=== PATIENT | male | born 1940 | race Caucasian/White ===

== ENCOUNTER → 2023-12-29 09:55 | Outpatient (REF) | payer OTHER, SELFPAY | LOC: RCS 09:55 | PROVIDERS: ATTENDING PHYSICIAN Internal Medicine Cardiovascular Disease; FAMILY PHYSICIAN Internal Medicine | DX: I25.5 Ischemic cardiomyopathy (principal) | CPT/HCPCS: 93306 ==

== ENCOUNTER 2024-01-28 09:21 | Day surgery (SDC) | payer OTHER, SELFPAY | END 2024-01-28 11:17 | disposition home or self-care (01) | LOC: CATH 09:21 | PROVIDERS: ATTENDING PHYSICIAN Internal Medicine; FAMILY PHYSICIAN Internal Medicine; OTHER PHYSICIAN Internal Medicine Cardiovascular Disease | DX: I48.0 Paroxysmal atrial fibrillation (principal); I25.5 Ischemic cardiomyopathy; I11.0 Hypertensive heart disease with heart failure; I50.22 Chronic systolic (congestive) heart failure; I34.0 Nonrheumatic mitral (valve) insufficiency; E78.5 Hyperlipidemia, unspecified; I25.10 Atherosclerotic heart disease of native coronary artery without angina pectoris; Z95.5 Presence of coronary angioplasty implant and graft; Z95.810 Presence of automatic (implantable) cardiac defibrillator; Z87.891 Personal history of nicotine dependence; Z85.46 Personal history of malignant neoplasm of prostate; Z79.82 Long term (current) use of aspirin; Z79.01 Long term (current) use of anticoagulants | CPT/HCPCS: 92960; 93005 ==

== ENCOUNTER 2024-03-21 08:01 | Day surgery (SDC) | payer OTHER, SELFPAY ==
[2024-03-16 10:27] VITALS: BMI 30.1
[2024-03-16 10:51] LABS: % Basophils 0.8 % (0-2); % Eosinophils 2.1 % (0-6); % Immature Granulocytes 0.4 % (0-0.5); % Lymphocytes 19.3 % (20.5-51.1); % Monocytes 9.4 % (1.7-9.3); Absolute Eosinophils 0.1 10^3/uL (0-0.7); Absolute Lymphocytes 0.9 10^3/uL (1.2-3.4); Absolute Monocytes 0.5 10^3/uL (0.1-0.6); Absolute Neutrophils 3.3 10^3/uL (1.4-6.5); Hematocrit 39.3 % (39.0-52.0); Hemoglobin 13.6 g/dL (13.0-18.0); Mean Corp Hgb Conc. 34.6 g/dL (33.0-37.0); Mean Corpuscular Hgb 32.1 pg (27.0-31.0); Mean Corpuscular Volume 92.7 fL (80.0-94.0); Mean Platelet Volume 10.2 fL (7.4-10.4); Nucleated Red Blood Cells % 0 % (-); Platelet Count 173 10^3/uL (130-400); Red Blood Cell Count 4.24 10^6/uL (4.70-6.10); Red Cell Dist. Width 12.6 % (11.5-14.5); White Blood Cell Count 4.8 10^3/uL (4.8-10.8)
[2024-03-16 11:08] LABS: ALT (SGPT) 16 U/L (0-50); AST (SGOT) 22 U/L (17-59); Albumin 4.7 g/dl (3.5-5.0); Alkaline Phosphatase 73 U/L (38-126); Blood Urea Nitrogen 30 mg/dl (9-20); Calcium 9.6 mg/dl (8.4-10.2); Carbon Dioxide 28 mmol/L (22-30); Chloride 102 mmol/L (98-107); Estimated Creatinine Clearance 59 ml/min; Glucose 93 mg/dl (70-99); Potassium 4.7 mmol/L (3.5-5.1); Sodium 140 mmol/L (135-145); Total Protein 7.3 g/dl (6.3-8.2); eGFR > 60.00
[2024-03-16 11:38] LABS: Total Bilirubin 1.4 mg/dl (0.2-1.3)
[2024-03-21] VITALS (28 sets, daily range): BP systolic 97–127; BP diastolic 60–93; BMI 29.3
--- NOTE | 2024-03-21 09:51 | PTCARENOTE ---
Pt is here for a PVI but took his Jardiance yesterday at 1100. Dr Adan made aware. Pt ok for procedure per Dr Adan. Will continue to monitor.
--- NOTE | 2024-03-21 13:51 | PTCARENOTE ---
Addendum entered by Mago Zhang RN 03/21/24 16:33:
Jeovanny from [employer] states new ICD settings are VVIR 70-100.
Original Note:
Dr Grant, Dr Adan (anesthesiologist), and Jeovanny Toussaint ([employer] rep) at pt bedside assessing pt and pt's ICD.
--- NOTE | 2024-03-21 13:53 | PTCARENOTE ---
Received pt from PVI procedure at 1336. At 1339, pt noted to have heart rate increased to 126 V paced. Pt denies chest pain and or SOB. VSS. EKG done. Tigertext sent to Dr Grant with EKG and [employer] rep notified. Will continue to monitor.
--- NOTE | 2024-03-21 14:01 | ITS.CL.ABL ---
[employer] - Ablation
Ablation
Procedure Report:
AFIB ablation:
Mr. Patel is a very pleasant 84 yr old gentleman with h/o persistent AF s/p AF ablation in 06/28/2019 that included pulmonary veins isolation, and CTI flutter ablation, has gone into recurrent atrial tachycardia / flutter and presented today to
the EP lab for atrial fibrillation / flutter ablation.
Date of Procedure:
03/21/2024
Indications:
Recurrent atrial fibrillation / atrial flutter / Atrial tachycardia
Pre-Operative Diagnosis:
Atrial fibrillation/Atrial flutter / Atrial tachycardia
Post-Operative Diagnosis:
Atrial fibrillation/Atrial flutter / Atrial tachycardia
Procedure Performed:
Redo atrial fibrillation ablation
Roof line formation for atypical roof dependent atrial flutter
Posterior wall isolation ablation
Left atrial anterior wall tachycardia ablation
Mitral isthmus ablation for amanda-mitral flutter ablation
Performing Physician:
Pérez Grant MD
Assistants:
EP staff
Anesthesia:
See anesthesia records
Detailed Description of the Procedure:
Written informed consent was obtained from the patient after a full explanation of the risks and benefits of the procedure including the risks of sedation and anesthesia.
The patient was brought to the electrophysiology laboratory in stable condition in fasting state. Continuous electrocardiographic and hemodynamic monitoring was initiated.
The initial rhythm was atrial flutter.
Device Interrogation:
Patient has [employer] ICD in place. The device was interrogated at the start of the case. The device and the lead was working normally. The tachy-therapies monitoring and interventions were suspended before the start of the case. The object oriented programmer
remained connected in the room throughout the procedure.
At the end of the case the device was reprogrammed to normal functioning at the previous settings. All therapies are resumed and ICD was armed before patient left the procedure room.
Time out:
The procedure site was meticulously prepared with surgical scrub and allowed to dry with no pooling. Sterile draping was applied to cover the procedure site. The image intensifier was draped with sterile bag and positioned over the patient.
Prior to the start of the procedure a surgical pause was performed with in agreement from anesthesia, EP staff with double identifier and explanation of the procedure, plan and site of the procedure stated with allergies and medications and
pertinent labs reviewed.
After infusion of local anesthetic, vascular access was obtained under ultrasound guidance and sheaths were placed over guide wire as detailed below.
Sheath and Catheter Placement:
Following sheaths were placed
Sheaths:
��������� Agilis sheath in right femoral vein upgraded from 8Fr in right femoral vein
��������� 9Fr in right femoral vein
��������� 7Fr in right femoral vein
Catheters:
��������� BiosAccess Mobile [employer] Thermocool STSF bidirectional - at locations of HRA, RV, LA, CS and LV.
��������� Pentaray catheter � at locations of RA, RV, LA and CS
��������� ICE catheter �AcuNav - at locations of RA, SVC, and RV.
��������� Decapolar catheter in RA and CS
A 7000 units of heparin was given.
Intracardiac ECHO:
An 8-Urdu AcuNav intracardiac ECHO (ICE) probe was advanced through the 9-Urdu sheath in the right femoral vein into the right atrium under fluoroscopic and ICE ultrasound image guidance and a baseline ECHO study was performed. The left atrial
size was dilated. There was trace tricuspid regurgitation. There was mild mitral regurgitation. The aortic valve was grossly normal. There was normal left ventricular size and function. There is trace pericardial effusion. All the four veins were
identified and has good flow identified.
During the procedure, ICE was used for monitoring of complications, guidance of trans-septal puncture, monitor the catheter position and tracking ablation lesions. No change in the pericardial space noted throughout the procedure.
Atrial Flutter:
The AFL was 340 msec and was entrained. It was out from the distal CS and was close to the proximal CS. The CS was concentric in activation. With this the RA was mapped.
The RA showed block at the CS and the high septal area was in the CL but the rest of the RA was out of the tachycardia cycle.
Decision was made to proceed with LA mapping.
Trans-septal Puncture:
Heparin was initiated and infused to maintain appropriate ACT. A J-tipped guidewire was advanced through the 8-Urdu sheath in the right femoral vein into the superior vena cava under fluoroscopic and ICE guidance. The 8-Urdu sheath was exchanged
for an Agilis sheath which was advanced into the superior vena cava. A BRK transseptal needle was advanced until the tip was slightly behind the tip of the dilator inside the Agilis sheath. The apparatus was withdrawn until it was in contact with
the fossa ovalis. The position was adjusted based on fluoroscopy and ultrasound images from ICE. Under fluoroscopic, hemodynamic and ICE ultrasound guidance, left atrium was cannulated by advancing the needle. Once atrial septum was cannulated, the
needle was pulled back and saline was injected into the left atrium. Both the sheath and the dilator was advanced into the left atrium. The dilator with the needle was withdrawn. Blood was aspirated from the Agilis sheath and arterial blood
confirmed. The sheath was flushed. Saline injection noted into the left atrium on ICE. The mapping catheter was advanced in the Agilis sheath into the left pulmonary vein. Left atrial pressure was measured and elevated V wave noted likely showing
high left atrial stiffness index.
3D Electroanatomic Mapping:
Using the Pentaray catheter advanced through Agilis sheath into the left atrium, an electroanatomic map (EAM) of the left atrium was created using [employer] Carto mapping system. The map was used for localization of catheter position and
tacking of ablation lesions.
The EAM of the left atrium showed 4 pulmonary veins with 3 veins electrically isolated from the body the LA. There was a small reconnection noted on the posterior wall connected to RSPV.
It showed extensive scar on the posterior and anterior wall of the LA. The LA was dilated in size.
Following the EAM, preparation were made for ablation.
Ablation:
Ablation #1: Atrial Fibrillation ablation:
The LA was mapped and the reconnection mapped to a posterior wall location at the carinal area.
Radiofrequency ablation using force sensing irrigated 3.5 mm catheter ([employer] STSF D/F) at the identified location was able to isolate the RSPV and the carinal area.
Ablation # 2: Atypical atrial flutter / Roof line Formation:
The EP study and the limited EAM of the flutter was consistent with roof dependent atrial flutter.
A set of radiofrequency ablations were placed on the roof line connecting the left superior pulmonary vein ablation lesions to the right superior pulmonary vein lesions rings.
All the ablation lesions were guided by the [employer] SURPOINT module with the posterior lesions were limited to 45 malone for SURPOINT lesion index goal of 400 and anterior wall lesions were limited to SURPOINT index goal of 450.
The esophagus was noted to be on the left side of the LA away from the PV antra based on the locations of the esophageal temperature probe. Ablation was stopped for any temperature increase of 0.1 degree C. Max esophageal temperature was 36.5C.
The tachycardia changed from 340 msec to 380 msec CL at the creation of the roof line.
Ablation # 3: Mitral flutter ablation:
The flutter was mapped again and was mitral flutter dependent now. The tachycardia terminated to sinus rhythm with mapping on the anterior wall.
The series of radiofrequency ablations were placed using an open irrigation, force-sensing 3.5mm radiofrequency ablation catheter (ThermocoTerr[employer]iance STSF) by creating ablation lesions from the left inferior PV antrum to the mitral annulus.
Ablation # 4: Posterior wall isolation with the Box lesions set Formation:
There was a significant fractionation seen in the posterior wall and LA AF foci along with CFAE made it clear as the posterior wall is critical in maintaining the atrial fibrillation and the decision was made to isolate the posterior wall by
creating a �Box� lesions.
A set of radiofrequency ablations were placed on the floor line connecting the left inferior pulmonary vein ablation lesions to the right inferior pulmonary vein lesions rings.
The penta-ray in the posterior wall showed entrance block with dissociated potentials and the pacing from the posterior wall showed local capture with no exit from the box lesions confirming the exit block.
Ablation # 5: Left atrial tachycardia ablation.
While doing the EP study, patient went into atrial tachycardia � 470 msec. It was mapped. The rhythm was thought to be coming from the anterior wall with focal origin at the annulus of the mitral valve. It was easily inducible and was mapped.
The best area of focal source was identified and the ablation at the anterior wall terminated the tachycardia into sinus rhythm. The area was ablated and was connected to the earlier ablation lesions on the anterior wall connecting to the mitral
annulus.
EP study and Confirmation of the PVI and bidirectional block:
Following achievement of entrance block at the pulmonary veins, pacing from the pentaray catheter in each of the four veins at 10 milliamps for 2 milliseconds showed entrance and exit block. All PVI were rechecked at the end of the case and remained
isolated with dissociated and local capture with pacing. Entrance and exit block were demonstrated in all veins.
The LA was mapped with Carto EAM in sinus rhythm confirming the line of block at the ablation lesions lines.
Posterior wall pacing with pentaray showed bidirectional block with no exit noted with local capture.
Sinus Node Function: The sinus node functions are within acceptable normal range.
The AV gadiel functions are deemed within normal range.
Arrhythmia Induction:
No sustained arrhythmia was induced at the end of the study.�
All PVI were rechecked at the end of the case and remained isolated with dissociated and local capture with pacing. Entrance and exit block were demonstrated.
Procedure End
ICE study was done again that showed no epicardial accumulation. No complications noted.
Following the completion of the EP study, catheters were removed. Protamine 40 mg was given at the end of the procedure and ACT was checked repeatedly. The sheaths were removed and hemostasis achieved with manual compression after acceptable ACT is
achieved.
Left atrial Pressure:
Pre-ablation: Mean LA pressure was 11mmHg
Post-ablation: Mean LA pressure was 19mmHg
Post-ablation: Mean LA pressure was 11mmHg
Estimated Blood loss:
<10 cc
Specimens Removed:
None.
Implants / Devices:
None
Urine output:
None
Packs / Drains/ Tubes:
None
Instrument / Sponge Count Correct:
Yes
Complications of the Procedure:
None
Condition of Patient at Time of Transfer:
Hemodynamically stable with no neurological or vascular compromise.
Summary:
Successful redo atrial fibrillation ablation with PVI, posterior wall isolation, atypical roof dependent atrial flutter ablation, Mitral flutter ablation, atrial tachycardia ablation.
Figures from the Procedure:
Figure 1: The electroanatomic mapping (EAM) of the left atrium with bipolar voltage (purple indicates normal electrical activity with red as no myocardial muscle electric activity indicating a line of block or scar.
[2024-03-21] MEDS: ANESTHETIC LOZENGE 1 LOZENGE PO (14:11)
[2024-03-21] MEDS: TYLENOL 650 MG PO (14:24)
[2024-03-21] MEDS: CORDARONE 103 MG IV (14:27)
--- NOTE | 2024-03-21 14:58 | W.PN.UPDATE ---
Update Note
Progress Note Update
Increased ectopy and ICD is pacing with retrograde conduction causing sustained SVT.
The ICD is reprogrammed to VVI 70 bpm. Now it is VVI paced with no tachycardia. The SVT subsided with programing change.
Will start Amiodarone for the next 6 months.
OK to discharge home.
--- NOTE | 2024-03-21 15:22 | PTCARENOTE ---
Dr Grant at pt bedside speaking to pt and pt's .
[2024-03-21 15:26] LABS: ACT-LR - POC 297 Seconds (116-155)
[2024-03-21 15:26] LABS: ACT-LR - POC 358 Seconds (116-155)
[2024-03-21 15:26] LABS: ACT-LR - POC 345 Seconds (116-155)
--- NOTE | 2024-03-21 16:10 | PTCARENOTE ---
EKG done 2 hours post amiodarone administration as ordered. EKG given to Jhoana TINAJERO. No further treatment ordered at this time.
--- NOTE | 2024-03-21 16:12 | W.PN.UPDATE ---
Update Note
Progress Note Update
Pt seen post Redo PVI/Flutter/Left AT ablation. Right groin with vascade closure that did not close properly, and manual compression was held with good hemostasis.
Post procedure, he had increased ectopy and ICD was pacing with retrograde conduction causing sustained SVT. The device was reprogrammed to VVI 70 with no tachycardia. He was started on amiodarone with 150mg IV bolus in recovery and will remain on
200mg BID at this time. Post EKG after amio now VPaced with underlying sinus rhythm.
Resume eliquis tonight at usual time. Will take 2 week course protonix post ablation. Followup at [facility] in 2 weeks as scheduled. Home later today if groin site/tele remain stable.
== END 2024-03-21 18:00 | disposition home or self-care (01) ==
LOC: CATH 08:01
PROVIDERS: ATTENDING PHYSICIAN Internal Medicine Cardiovascular Disease; FAMILY PHYSICIAN Internal Medicine; OTHER PHYSICIAN Internal Medicine Cardiovascular Disease
DX: I48.19 Other persistent atrial fibrillation (principal); I11.0 Hypertensive heart disease with heart failure; I25.10 Atherosclerotic heart disease of native coronary artery without angina pectoris; Z95.5 Presence of coronary angioplasty implant and graft; R06.02 Shortness of breath; J43.9 Emphysema, unspecified; Z85.46 Personal history of malignant neoplasm of prostate; Z87.891 Personal history of nicotine dependence; I25.5 Ischemic cardiomyopathy; E78.5 Hyperlipidemia, unspecified; Z68.30 Body mass index [BMI] 30.0-30.9, adult; E66.9 Obesity, unspecified; Z79.82 Long term (current) use of aspirin; Z79.899 Other long term (current) drug therapy; Z79.1 Long term (current) use of non-steroidal anti-inflammatories (NSAID); Z90.49 Acquired absence of other specified parts of digestive tract
CPT/HCPCS: 93655; C1769; C1894; C1730; C1732; C1766; C1892; C1759; 36415; 76937; 80053; 85025; 85347; 86850; 86900; 86901; 93005; 93656; C1760

== ENCOUNTER → 2024-05-12 07:36 | Outpatient (REF) | payer OTHER, SELFPAY | LOC: RSP 07:36 | PROVIDERS: ATTENDING PHYSICIAN Nurse Practitioner; FAMILY PHYSICIAN Internal Medicine | DX: I25.5 Ischemic cardiomyopathy (principal); I25.10 Atherosclerotic heart disease of native coronary artery without angina pectoris; Z95.810 Presence of automatic (implantable) cardiac defibrillator | CPT/HCPCS: 94727; 94729; 88738; 94060 ==

== ENCOUNTER 2024-05-23 02:46 | Inpatient (IN) | payer OTHER, SELFPAY ==
[2024-05-22 21:59] VITALS: BP 180/117
[2024-05-22 22:16] VITALS: BMI 28.8
[2024-05-22 22:29] LABS: % Basophils 0.7 % (0-2); % Eosinophils 0.9 % (0-6); % Immature Granulocytes 0.3 % (0-0.5); % Lymphocytes 17.9 % (20.5-51.1); % Monocytes 6.7 % (1.7-9.3); % Neutrophils 73.5 % (42.2-75.2); Absolute Basophils 0.1 10^3/uL (0-0.2); Absolute Eosinophils 0.1 10^3/uL (0-0.7); Absolute Lymphocytes 1.5 10^3/uL (1.2-3.4); Absolute Monocytes 0.6 10^3/uL (0.1-0.6); Absolute Neutrophils 6.3 10^3/uL (1.4-6.5); Hematocrit 39.3 % (39.0-52.0); Hemoglobin 13.5 g/dL (13.0-18.0); Mean Corp Hgb Conc. 34.4 g/dL (33.0-37.0); Mean Corpuscular Hgb 32.5 pg (27.0-31.0); Mean Corpuscular Volume 94.7 fL (80.0-94.0); Mean Platelet Volume 10.3 fL (7.4-10.4); Nucleated Red Blood Cells % 0 % (-); Platelet Count 193 10^3/uL (130-400); Red Blood Cell Count 4.15 10^6/uL (4.70-6.10); Red Cell Dist. Width 13.7 % (11.5-14.5); White Blood Cell Count 8.6 10^3/uL (4.8-10.8)
[2024-05-22 22:31] VITALS: BP 161/119
--- NOTE | 2024-05-22 22:43 | ED.GENMED ---
History of Present Illness
<MIGUEL Freed - Last Filed: 05/23/24 01:13>
General
Chief Complaint: Breathing Problem
Source: patient and spouse
Exam Limitations: none
Time Seen by Provider: 05/22/24 22:15
Nursing documentation reviewed up to this point in time: agreed with
History of Present Illness
History of Present Illness:
Pt is an 84 y/o M with pmhx of Afib, CHF, HTN, HLD, prostate cancer, and former smoker who presents with complaints of tachycardia and SOB for the past few months but has worsened over the past 3-4 days. The SOB is constant and is mildly better when
walking. The pt denied worsening of SOB with exertion, laying down, or sitting forward. There is associated wheezing, lightheadedness, fatigue, NELSON, palpitations, and nausea. The pt stated that when he has episodes of nausea, he feels that his
'stomach is churning'. The pt noted 2 episodes of darkened stools, the first was 3 days ago but noted that he had took pepto bismol at the time. The second episode of dark stool was this morning. The pt also noted significant abdominal bloating.
Denies chest pain, cough, vomiting, fever, abdominal pain, calf pain, and any recent travel.
Past History
<MIGUEL Freed - Last Filed: 05/23/24 01:13>
Past History
ED Past Medical History: Arrthythmia (Atrial fibrillation), CAD, CHF, HTN, Hypercholesterolemia and Other (Cardiomyopathy, circulation problems, back pain, neck pain, numbness right arm)
ED Past Surgical History: Appendectomy, Cardiac (Cardiac catheterization, 6 total stents, pacemaker) and Tonsilectomy
Social History
Tobacco: Former smoker
Alcohol: None
Drug: None
Living: with family
Employment: Retired
Review of Systems
<MIGUEL Freed - Last Filed: 05/23/24 01:13>
Review of Systems
Allergies reviewed?: Yes
Constitutional: Reports fatigue
EENT: Reports no symptoms
Respiratory: Reports cough and trouble breathing
Cardiac: Reports palpitations
ABD/GI: Reports nausea and black stools
: Reports no symptoms
Musculoskeletal: Reports no symptoms
Skin: Reports no symptoms
Neurological: Reports headache
Endocrine: Reports no symptoms
Hematologic/Lymphatic: Reports no symptoms
Psychiatric: Reports no symptoms
Phy Exam
<MIGUEL Freed - Last Filed: 05/23/24 01:13>
General Physical Exam
General Presentation: moderate distress
General age: appears stated age
General Skin: warm and dry
General Habitus: normal
General Mental: alert
General Hydration: appears well hydrated
ENT Exam
ENT Exam: neck supple
Eye Exam
Eye Exam: cornea clear and conjunctiva normal
Cardiovascular Exam
Cardiovascular Exam: no edema, no JVD, no carotid bruit and tachycardia
Pulmonary Exam
Pulmonary Exam: chest non tender and accessory muscle use
Respirations: moderate effort
Gastrointestinal Exam
Gastrointestinal Exam: non tender and distended
Neurological Exam
Neurological Exam: alert, oriented x3, no motor deficits, no sensory deficits and speech normal
Musculoskeletal Exam
Musculoskeletal Exam: full ROM and neuro vasc intact
Skin Exam
Skin Exam: normal color and warm/dry
Psychiatric Exam
Psychiatric Exam: normal mood/affect
Scores
<MIGUEL Freed - Last Filed: 05/23/24 01:13>
Heart Failure Risk
HF Risk Score: 4
Admission Status: HIGH RISK 26.1% Consider SNF treatment or admission to hospital
<Deo Rosas DO - Last Filed: 05/23/24 01:00>
Heart Failure Risk
Heart Failure Risk Score: Yes
History of Stroke or TIA: No
History of intubation for respiratory distress: No
Heart rate on ED arrival >/= 110: Yes
SaO2 <90% on arrival on room air: No
HR >/=110 during 3min walk test (or too ill to perform test): Yes
ECG has acute ischemic changes: No
Urea >/=12mmol/L (BUN 33.6mg/dL): Yes
Serum CO2>/=35mmol/L: No
Troponin I or T elevated to MT Level (0.4mg/dL): No
NT-proBNP >/=5,000ng/L (5,000pg/ml): Yes
HF Risk Score: 4
Admission Status: HIGH RISK 26.1% Consider SNF treatment or admission to hospital
Course
<MIGUEL Freed - Last Filed: 05/23/24 01:13>
Orders/Labs/Results
Orders:
Orders
05/22/24 21:58
ECG [Electrocardiogram (*1)] Urgent
Reason for Study: Tachycardia
EKG- Treatment ONCE
05/22/24 22:24
Complete Blood Count/With Diff Urgent
Comprehensive Metabolic Panel Urgent
NT-proBNP Urgent
Troponin I Urgent
05/22/24 22:54
Nitroglycerin Ointment [Nitro-Bid] 1 inch TOPICAL NOW STA
05/22/24 23:28
PT/INR [Prothrombin Time] Urgent
PTT Urgent
05/23/24 00:02
Furosemide [Lasix] 80 mg IV NOW STA
CR Chest - 2 Views Urgent
Comment:
Reason For Exam: dyspnea, tachycardia
05/23/24 00:59
Bipap [RESP] Urgent
Patient to use own unit?: No
Inspiratory Pressure (cm H2O): 12
Expiratory Pressure (cm H2O): 5
Abnormal Lab Results
05/22/24 05/22/24
22:24 23:28
RBC 4.15 L 10^6/uL
(4.70-6.10)
MCV 94.7 H fL
(80.0-94.0)
MCH 32.5 H pg
(27.0-31.0)
Lymphocytes % 17.9 L %
(20.5-51.1)
PT 19.1 H Sec
(11.4-14.6)
APTT 39.2 H Sec
(23.4-35.0)
Carbon Dioxide 20 L mmol/L
(22-30)
BUN 37 H mg/dl
(9-20)
Creatinine 1.6 H mg/dL
(0.7-1.3)
Glucose 130 H mg/dl
(70-99)
Total Bilirubin 1.4 H mg/dl
(0.2-1.3)
05/22/24 22:24
05/22/24 22:24
Vital Signs
Initial and Last Documented VS:
Initial Vital Signs
Temp Pulse Resp BP Pulse Ox
97.4 F 104 30 180/117 91
05/22/24 21:59 05/22/24 21:59 05/22/24 21:59 05/22/24 21:59 05/22/24 21:59
Last Documented Vital Signs
Temp Pulse Resp BP Pulse Ox
97.4 F 123 28 154/109 93
05/22/24 21:59 05/22/24 23:01 05/22/24 23:01 05/22/24 23:01 05/23/24 00:00
Rachellt;Deo Rosas, - Last Filed: 05/23/24 01:00>
Orders/Labs/Results
Orders:
Orders
05/22/24 21:58
ECG [Electrocardiogram (*1)] Urgent
Reason for Study: Tachycardia
EKG- Treatment ONCE
05/22/24 22:24
Complete Blood Count/With Diff Urgent
Comprehensive Metabolic Panel Urgent
NT-proBNP Urgent
Troponin I Urgent
05/22/24 22:54
Nitroglycerin Ointment [Nitro-Bid] 1 inch TOPICAL NOW STA
05/22/24 23:28
PT/INR [Prothrombin Time] Urgent
PTT Urgent
05/23/24 00:02
Furosemide [Lasix] 80 mg IV NOW STA
CR Chest - 2 Views Urgent
Comment:
Reason For Exam: dyspnea, tachycardia
05/23/24 00:59
Bipap [RESP] Urgent
Patient to use own unit?: No
Inspiratory Pressure (cm H2O): 12
Expiratory Pressure (cm H2O): 5
Abnormal Lab Results
05/22/24 05/22/24
23:28
RBC 4.15 L 10^6/uL
(4.70-6.10)
MCV 94.7 H fL
(80.0-94.0)
MCH 32.5 H pg
(27.0-31.0)
Lymphocytes % 17.9 L %
(20.5-51.1)
PT 19.1 H Sec
(11.4-14.6)
APTT 39.2 H Sec
(23.4-35.0)
Carbon Dioxide 20 L mmol/L
(22-30)
BUN 37 H mg/dl
(9-20)
Creatinine 1.6 H mg/dL
(0.7-1.3)
Glucose 130 H mg/dl
(70-99)
Total Bilirubin 1.4 H mg/dl
(0.2-1.3)
05/22/24 22:24
05/22/24 22:24
Vital Signs
Initial and Last Documented VS:
Initial Vital Signs
Temp Pulse Resp BP Pulse Ox
97.4 F 104 30 180/117 91
05/22/24 21:59 05/22/24 21:59 05/22/24 21:59 05/22/24 21:59 05/22/24 21:59
Last Documented Vital Signs
Temp Pulse Resp BP Pulse Ox
97.4 F 123 28 154/109 93
05/22/24 21:59 05/22/24 23:01 05/22/24 23:01 05/22/24 23:01 05/23/24 00:00
<MIGUEL Freed - Last Filed: 05/23/24 01:13>
MDM/Problems Addressed
Differential Diagnosis Includes:
PE
CHF
<Deo Rosas DO - Last Filed: 05/23/24 01:00>
MDM/Problems Addressed
Differential Diagnosis Includes:
CHF, copd
<MIGUEL Freed - Last Filed: 05/23/24 01:13>
*Critical Care Note
Total Time (30-74mins, 75-104mins- exclusive of procedures): Not Applicable
<Deo Rosas DO - Last Filed: 05/23/24 01:00>
Update Note
Update Note:
Chest x-ray shows pulmonary vascular congestion consistent with CHF.
ED Attending Note
<MIGUEL Freed - Last Filed: 05/23/24 01:13>
-
Portions of this chart may have been created with voice recognition software.� Occasional wrong word or��sound alike� substitutions may have occurred due to the inherent limitations of voice recognition software.
<Deo Rosas DO - Last Filed: 05/23/24 01:00>
ED Attending Note
Patient seen and examined by attending physician: Yes
I performed the substantive portion of visit, reviewed & personally made and approve the management plan that is documented in note by myself or MICHAEL.: Yes
ED Attending Note:
Pleasant 84-year-old male that presents with tachycardia and shortness of breath. Patient states that the shortness of breath has waxed and waned over the last few weeks. Patient was on Lasix but admits to stopping it on his own. The patient also
had darkened stools but took some Pepto-Bismol preceding. Patient denies any abdominal pain. Denies chest pain. Patient was seen in conjunction with the PA student. I have reviewed and agree with the history and treatment plan presented. On my
independent physical exam, patient is awake, alert, and oriented x3, minimal acute distress at time of exam. Rhonchi are present at both bases. Skin is warm and dry. Abdomen is soft nontender nondistended. Good bowel sounds x 4 quadrants. Moves
all 4 extremities. Rectal exam, performed in the presence of nursing, showed dark stool that was Hemoccult negative. The dark stool was likely from the Pepto-Bismol taken earlier in the week.
EKG shows AV dual paced rhythm rate of 86. When compared with previous EKG dated March 21, 2024, PVCs are not present.
Pacemaker was interrogated. I spoke with the tech who stated that patient is in an atrial rhythm. The pacemaker also detected increased fluid, possibly suggestive of CHF
Patient to be admitted to the hospital service for CHF exacerbation.
Discharge Plan
Departure
Patient Disposition: Admit
Date of Disposition: 05/23/24
Time of Disposition: 00:55
Admit to: Telemetry
Presentation/result/management discussed w/ accepting MD/DO: Hospitalist
Discharge Problem:
CHF (congestive heart failure)
Prescriptions:
No Action
cholecalciferol (vitamin D3) [Vitamin D3] 1,000 UNIT capsule
2,000 unit PO DAILY
ezetimibe 10 MG tablet
10 mg PO DAILY
Eliquis 5 MG tablet
5 mg PO BID
spironolactone 25 MG tablet
12.5 mg PO DAILY
coenzyme Q10 [Co Q-10] 200 MG capsule
200 mg PO DAILY
aspirin 81 MG tablet,delayed release (DR/EC)
81 mg PO DAILY
carvedilol 6.25 MG tablet
6.25 mg PO BID
Entresto 1 EACH tablet
1 tab PO BID
ibuprofen 200 MG tablet
200 mg PO DAILYPRN PRN (Reason: MILD PAIN)
atorvastatin 40 mg Tablet
40 mg PO DAILY
multivitamin Tablet
1 tab PO DAILY
furosemide 20 mg Tablet
20 mg PO DAILYPRN PRN (Reason: swelling)
Jardiance 10 mg Tablet
10 mg PO DAILY
amiodarone 200 mg tablet
200 mg PO BID Qty: 180 3RF
Referrals:
Jw Danielle MD [Family Provider] -
Interventions
Interventions:
*Risk Screen - Suicide Last Done: 05/22/24 21:59
*General Assessment Last Done: 05/22/24 21:59
*Neglect/Abuse Screening Last Done: 05/22/24 21:59
ED- Cardiac Assessment Last Done: 05/22/24 22:34
ED- Pulmonary Assessment Last Done: 05/22/24 22:34
Discharge Date and Time
Print Language: YI
[2024-05-22 23:00] LABS: ALT (SGPT) 23 U/L (0-50); AST (SGOT) 28 U/L (17-59); Albumin 4.6 g/dl (3.5-5.0); Alkaline Phosphatase 85 U/L (38-126); Blood Urea Nitrogen 37 mg/dl (9-20); Calcium 9.6 mg/dl (8.4-10.2); Carbon Dioxide 20 mmol/L (22-30); Chloride 103 mmol/L (98-107); Estimated Creatinine Clearance 39 ml/min; Glucose 130 mg/dl (70-99); Potassium 4.8 mmol/L (3.5-5.1); Sodium 140 mmol/L (135-145); Total Bilirubin 1.4 mg/dl (0.2-1.3); eGFR 42.75
[2024-05-22 23:01] VITALS: BP 154/109
[2024-05-22 23:04] LABS: NT-proBNP 8830 pg/ml; Troponin I 0.031 ng/ml
[2024-05-22] MEDS: NITRO-BID 1 INCH TOPICAL (23:28)
[2024-05-22 23:53] LABS: INR 1.63; PT 19.1 Sec (11.4-14.6)
[2024-05-22 23:54] LABS: APTT 39.2 Sec (23.4-35.0)
[2024-05-23] VITALS (36 sets, daily range): BP systolic 70–177; BP diastolic 61–134; PULSE 2–102; BMI 28.0
[2024-05-23] MEDS: LASIX 80 MG IV (00:35)
[2024-05-23] MEDS: ATIVAN 0.5 MG IV (01:50)
--- NOTE | 2024-05-23 02:38 | HPS.HSE ---
Family Physician
-
Family Physician: Jw Danielle
Chief Complaint
-
SOB
History of Present Illness
Patient is an 84y M with PMH significant for ASCVD, ischemic cardiomyopathy and CHFrEF who presents to ED complaining of SOB. History obtained from patient and his family at bedside. Patient underwent PVI ablation in February 2024 due to A-Fib. At
that time, he was newly started on amiodarone and Jardiance. He was taking Lasix 20mg BID at that time and has since tapered his dosing significantly. For the past few weeks, he has been taking Lasix 'as needed' only. He states that he has taken
no Lasix in the past 10 days at all.
Patient began to experience SOB and GARCIA about 3 days ago. This has steadily progressed since that time. He appreciates significant abdominal distention / 'bloating' and decreased appetite. He does not note significant LE edema.
He became acutely more short of breath this evening, prompting him to present to the ED for further evaluation.
He took a single dose of Lasix at home this evening around 9:30 PM (20mg).
In the ED, he was in significant distress and was placed on BiPAP. He states that he does feel improved from initial arrival - though he continues to feel SOB.
Medical History
Past Medical History
Past Medical History: Reports Other
Additional Past Medical History:
ASCVD
Ischemic Cardiomyopathy
Chronic HFrEF (35% - November 2023)
Persistent Atrial Fibrillation
Hypertension
Prostate Cancer
Past Surgical History: Reports Other
Additional Past Surgical History:
PTCA with Stents (x 12)
PPM / AICD Placement
PVI Ablation x 2
Appendectomy
Social History
Tobacco: Former Smoker (Quit smoking in 1979. Approx 20 pack years total use.)
Alcohol: Daily (1/2 bottle wine daily.)
Drug: None
Personal:
Living: With Family
Family History
Family History: Not pertinent
Allergies / Home Medications
Allergies reflects when Allergies were last updated in [facility].
Home Medications with original date entered in [facility]
Allergy/Medication List:
Allergies
Allergy/AdvReac Type Severity Reaction Status Date / Time
No Known Allergies Allergy Verified 03/21/24 08:10
Home Medications
cholecalciferol (vitamin D3) 25 mcg (1,000 unit) capsule (Vitamin D3) 2,000 unit PO DAILY Supplement 02/16/15
ezetimibe 10 mg tablet 10 mg PO DAILY High cholesterol 02/16/15
apixaban 5 mg tablet (Eliquis) 5 mg PO BID Blood clot prevention/tx 08/25/18
aspirin 81 mg tablet,delayed release 81 mg PO DAILY Blood clot prevention/tx 06/27/19
coenzyme Q10 200 mg capsule (Co Q-10) 200 mg PO DAILY Supplement 06/27/19
spironolactone 25 mg tablet 12.5 mg PO DAILY Blood pressure 06/27/19
carvedilol 6.25 mg tablet 6.25 mg PO BID Blood pressure 02/06/22
ibuprofen 200 mg tablet 200 mg PO DAILYPRN PRN MILD PAIN 02/06/22
sacubitril 49 mg-valsartan 51 mg tablet (Entresto) 1 tab PO BID Heart Failure 02/06/22
atorvastatin 40 mg tablet 40 mg PO DAILY 03/12/22
empagliflozin 10 mg tablet (Jardiance) 10 mg PO DAILY 03/11/24
furosemide 20 mg tablet 20 mg PO DAILYPRN PRN swelling 03/11/24
multivitamin 1 tab PO DAILY 03/11/24
amiodarone 200 mg tablet 200 mg PO BID #180 tabs 03/21/24
Review of Systems
-
History Source: Patient and Family
A 12 point ROS was completed and negative except as noted: Yes
Constitutional: Reports Fatigue; Denies Fever or Chills
EENT: Denies Sore Throat
Respiratory: Reports Trouble Breathing; Denies Cough or Hemoptysis
Cardiac: Denies Chest Pain, Diaphoresis, Palpitations or Syncope
Abdomen/GI: Reports Other (Abd distention.); Denies Abdominal Pain, Nausea, Vomiting or Diarrhea
: Denies Dysuria, Frequency or Flank Pain
Musculoskeletal: Denies Joint Pain or Edema
Neurological: Denies Dizzy or Headache
Physical Exam
Vital Signs
Vital Signs
Temp Pulse Resp BP Pulse Ox
97.4 F 123 28 154/109 93
05/22/24 21:59 05/22/24 23:01 05/22/24 23:01 05/22/24 23:01 05/23/24 00:00
Physical Exam
General: Other (84y M in mild distress due to dyspnea.)
HEENT: Moist mucous membranes and PERRLA
Respiratory: Other (Bilateral rales about 1/2 up. Scattered squeaks and wheezes.)
Cardiac: S1/S2 and Regular Rhythm; No Murmur
GI: Other (Abdomen is distended / non-tender. pos BS.)
Musculoskeletal: No Clubbing, No Cyanosis and Other (1+ edema at ankles bilaterally.)
Neuro: AO x 3
Laboratory Results
-
05/22/24 22:24
05/22/24 22:24
Laboratory Results
PT 19.1 Sec (11.4-14.6) H 05/22/24 23:28
INR 1.63 05/22/24 23:28
APTT 39.2 Sec (23.4-35.0) H 05/22/24 23:28
Total Bilirubin 1.4 mg/dl (0.2-1.3) H 05/22/24 22:24
AST 28 U/L (17-59) 05/22/24 22:24
ALT 23 U/L (0-50) 05/22/24 22:24
Alkaline Phosphatase 85 U/L (38-126) 05/22/24 22:24
Troponin I 0.031 ng/ml 05/22/24 22:24
Impression/Plan
-
A/P: Patient is an 84y M with PMH significant for ASCVD, CHF and hypertension who presents to ED complaining of SOB.
Acute on Chronic HFrEF
Acute Hypoxemic Respiratory Insufficiency secondary to the above
- Admit for further evaluation and treatment.
- Patient presents in respiratory distress with elevated BNP, rales and abdominal distention on exam and CXR showing pulmonary edema.
- IV Lasix administered in the ED and patient started on BiPAP.
- Continue IV Lasix BID.
- Add IV NTG.
- Follow I/Os, daily weights, etc.
- Cardiology evaluation for additional recommendations.
- Symptoms likely exacerbated by cessation of his prescribed Lasix doing (none in the past 10 days).
- Follow for clinical improvement.
- Wean from BiPAP as able.
- Update Echo - last in November of this year with LVEF = 35%.
LUCIO
- Likely secondary to CHF / prerenal etiology.
- SCr = 1.6 compared to known baseline of 1.1.
- Hold Entresto / ARB acutely.
- Follow for changes with diuresis.
ASCVD
- Stable. No chest pain, palpitations, etc associated with his dyspnea.
- Troponin initially is 'non-negative' - follow to peak.
- Continue usual CV med regimen including ASA, statin, etc.
Persistent Atrial Fibrillation
- Stable. Currently in AV paced rhythm.
- Monitor on telemetry.
- Continue Eliquis for stroke risk reduction.
- Continue amiodarone.
Prostate Cancer
- No prior treatment.
- Watchful waiting.
DVT Prophylaxis: On Eliquis
Code Status: Full
--- NOTE | 2024-05-23 07:03 | PTCARENOTE ---
Received patient from the ED on a BIPAP.
[2024-05-23 07:26] LABS: Troponin I 0.132 ng/ml
[2024-05-23 07:52] LABS: TSH Reflex To Free T4 1.91 uIU/ml (0.47-4.68)
[2024-05-23] MEDS: NITROGLYCERIN PREMIX 250 IV (08:05)
[2024-05-23] MEDS: LASIX 40 MG IV ×2 (08:19→16:16)
[2024-05-23] MEDS: THIAMINE INJECTION 200 MG IV ×2 (08:20→19:32)
[2024-05-23] MEDS: COREG 6.25 MG PO ×2 (08:20→19:31)
[2024-05-23] MEDS: ALDACTONE 12.5 MG PO (08:20)
[2024-05-23] MEDS: LIPITOR 40 MG PO (08:20)
[2024-05-23] MEDS: FOLVITE 1 MG PO (08:20)
[2024-05-23] MEDS: ASPIR LOW (ENTERIC COATED) 81 MG PO (08:21)
[2024-05-23] MEDS: PACERONE 200 MG PO (08:21)
[2024-05-23] MEDS: ELIQUIS 2.5 MG PO ×2 (08:24→19:32)
--- NOTE | 2024-05-23 08:33 | PTCARENOTE ---
Pt is AAOx3, hr 120 bp 140/90, now off bipap and on 6 liters nc no cp staes breathing is better. Meds given Nitro started at 5 mcg. Watching BP
--- NOTE | 2024-05-23 09:39 | CON.CAR ---
Addendum entered and electronically signed by Eliot Levy MD 05/23/24 11:01:
I saw and examined the patient.
The COCONUT COOKER's note was reviewed and I agree with the note.
Comment: 84-year-old male (known to Dr. Levy, his primary electronic funds transfer coordinator), with coronary artery disease status post PCI, persistent atrial fibrillation (PVI 05/2019, SSS s/p MDT PPM, ICM with ICD (previously 20%), and prostate cancer (watchful
waiting), who presented to the emergency department the chief complaint of shortness of breath. He is in acute HF exacerbation with AF RVR.
- IV diuresis
- likley AF will become better controlled with improved HF
Original Note:
Consultation
Consultation Request
Date/Time Consultation Requested: 05/23/2024 06:15
Date/Time Consultation Performed: 05/23/2024 09:00
Requesting Provider: Dr. Steele
Performing Provider: BERKLEY Hansen for Dr. Levy
Reason for Consultation: Acute heart failure
Medical History
-
Chief Complaint: Shortness of breath
History of Present Illness:
Vaibhav Patel is an 84-year-old male (known to Dr. Levy, his primary electronic funds transfer coordinator), with coronary artery disease status post PCI, persistent atrial fibrillation (PVI 05/2019, SSS s/p MDT PPM, ICM with ICD (previously 20%), and prostate
cancer (watchful waiting), who presented to the emergency department the chief complaint of shortness of breath. He followed up in the outpatient cardiology office 04/04/2024. He endorsed fatigue. His amiodarone was reduced to 200 mg daily and his
ICD was reprogrammed to DDDR. He called later that week and reported improvement. He was having lightheadedness. Initially he was on furosemide 40 mg daily earlier this summer. This was then decreased to 20 mg daily. He then endorsed continued
lightheadedness with low blood pressures at home. His furosemide was decreased to as needed. He has not taken any furosemide at home for nearly 10 days as he has not had any weight gain. He presented with worsening shortness of breath. It
started 3 to 4 days prior to arrival. He then proceeded to have shortness of breath at rest and presented to the emergency department. He was given furosemide 80 mg IV times once and started on BiPAP and a nitroglycerin drip.
Past Medical History
Past Medical History: Arrhythmias (Persistent atrial fibrillation), CAD, CHF (ICM, HFrEF), HTN and Hypercholesterolemia
Past Surgical History: Appendectomy
Social History
Tobacco: Former Smoker
Alcohol: Daily
Drug: None
Personal:
Living: With Family
Employment: Retired
Family History
Family History: Reviewed & Not Pertinent
Allergies / Home Medications
Allergy/AdvReac Type Severity Reaction Status Date / Time
No Known Allergies Allergy Verified 03/21/24 08:10
�Medication �Instructions �Recorded �Confirmed �Type
cholecalciferol (vitamin D3) 25 2,000 unit PO DAILY Supplement 02/16/15 05/22/24 History
mcg (1,000 unit) capsule (Vitamin
D3)
ezetimibe 10 mg tablet 10 mg PO DAILY High cholesterol 02/16/15 05/22/24 History
apixaban 5 mg tablet (Eliquis) 5 mg PO BID Blood clot 08/25/18 05/22/24 History
prevention/tx
aspirin 81 mg tablet,delayed 81 mg PO DAILY Blood clot 06/27/19 05/22/24 History
release prevention/tx
coenzyme Q10 200 mg capsule (Co 200 mg PO DAILY Supplement 06/27/19 05/22/24 History
Q-10)
spironolactone 25 mg tablet 12.5 mg PO DAILY Blood pressure 06/27/19 05/22/24 History
carvedilol 6.25 mg tablet 6.25 mg PO BID Blood pressure 02/06/22 05/22/24 History
ibuprofen 200 mg tablet 200 mg PO DAILYPRN PRN MILD PAIN 02/06/22 05/22/24 History
sacubitril 49 mg-valsartan 51 mg 1 tab PO BID Heart Failure 02/06/22 05/22/24 History
tablet (Entresto)
atorvastatin 40 mg tablet 40 mg PO DAILY 03/12/22 05/22/24 History
empagliflozin 10 mg tablet 10 mg PO DAILY 03/11/24 05/22/24 History
(Jardiance)
furosemide 20 mg tablet 20 mg PO DAILYPRN PRN swelling 03/11/24 05/22/24 History
multivitamin 1 tab PO DAILY 03/11/24 05/22/24 History
amiodarone 200 mg tablet 200 mg PO BID #180 tabs 03/21/24 05/22/24 Rx
Review of Systems
-
History Source: Patient
All other systems: Negative unless noted
Constitutional: Fatigue
EENT: No Symptoms
Respiratory: Trouble Breathing
Cardiac: No Symptoms
Abdomen/GI: No Symptoms
: No Symptoms
Musculoskeletal: No Symptoms
Skin: No Symptoms
Neurological: Weakness
Endocrine: No Symptoms
Hematologic/Lymphatic: No Symptoms
Physical Exam
Vital Signs
Temp Pulse Resp BP Pulse Ox
97.8 F 120 25 142/91 96
05/23/24 07:30 05/23/24 08:21 05/23/24 08:15 05/23/24 08:21 05/23/24 08:15
Lab Results
05/22/24 22:24
Troponin I 0.132 ng/ml H* 05/23/24 06:37
Cfr-U-Wtjgixxzwla Pept 8830 pg/ml 05/22/24 22:24
Physical Exam
General: Well Developed, Well Nourished, No Apparent Distress and Comfortable
HEENT: Normocephalic, Anicteric and Moist Mucous Membranes
Respiratory: Crackles and Non Labored Respirations
Cardiac: S1/S2 and Irregular Rhythm; Negative Peripheral Edema
Breast: Deferred by me
GI: Soft, Non Tender, Non Distended and Normal Bowel Sounds
Rectal: Deferred by Provider
Genito-urinary: No Costovertebral Tender
Musculoskeletal: No Clubbing, No Cyanosis and No Edema
Skin: Warm and Dry
Neuro: AO x 3
Hematologic/Lymphatic: No Lymphadenopathy
Psych: Calm
Impression / Plan
-
BACKGROUND:
Typing Pool Supervisor: Dr. Levy
Acute hypoxic respiratory failure, in the setting of acute HFrEF
-Initially requiring BiPAP, plan as below
-Wean O2 as tolerated
ICM
HFrEF, acute on chronic
-Diuresis with furosemide 40 mg IV twice daily
-He endorsed dizziness (OH?) and his furosemide was slowly tapered down, he has been off diuretic for 10 days
-Lowest documented LVEF 20% in 2019
-GDMT as tolerated
-Beta-efrain: Carvedilol 6.25 mg BID
-SGLT2: Jardiance 10 mg daily
-ACEI/ARB: Sacubitril/valsartan 49-51 mg BID
-MRA: Spironolactone 12.5 mg
-ICD: Medtronic
-Update TTE
-Trend daily weight, I's/O, and BMP with diuresis
-Heart failure education
Abnormal troponin
-Troponin 0.132, trend to peak
-No CP
Persistent atrial fibrillation
-Rates are elevated, on amiodarone and carvedilol
-Oral Anticoagulation: Apixaban has been decreased to 2.5 mg twice daily as his creatinine is now over 1.5, follow renal function
-[id number]: score at least 5 (Heart failure, HTN, age 75 or more, Vascular disease)
Lightheadedness
-Check orthostatics tomorrow
-If orthostatic is positive consider decreasing Entresto, he will need standing diuretic
CAD, stable without angina
LUCIO
-In the setting of acute HFrEF, trend with diuresis
Mild to moderate MR
Former smoker, continue cessation recommended
Daily EtOH consumption, on MSAS
Prostate cancer, watchful waiting
DATA:
TTE, 12/29/2023:
Left ventricle is mildly dilated.
Estimated LVEF 35%.
Global hypokinesis.
Very severe biatrial enlargement.
Mild to moderate mitral regurgitation.
Mildly dilated aortic root and ascending aorta.
Compared to prior study of 03/06/2022 the LVEF has fallen from 45-50% to 35%. The
LV is now dilated.
Data Reviewed
-
EKG: Report Reviewed by me (AV paced rhythm with prolonged AV conduction, PVCs, rate 86)
Radiology: Report Reviewed by me (CXR: Diffusely increased interstitial/bronchovascular markings bilaterally with some ill-defined opacities within the right lung base. No pleural effusions. Findings most likely represent interstitial pulmonary
edema with superimposed pneumonia not excluded within the right lung base. No effusions.)
Labs: Labs Reviewed by me
Old Records: Reviewed
[2024-05-23 12:21] LABS: Blood Urea Nitrogen 48 mg/dl (9-20); Calcium 9.1 mg/dl (8.4-10.2); Carbon Dioxide 26 mmol/L (22-30); Chloride 101 mmol/L (98-107); Estimated Creatinine Clearance 35 ml/min; Glucose 118 mg/dl (70-99); Potassium 5.4 mmol/L (3.5-5.1); Sodium 142 mmol/L (135-145); eGFR 37.12
[2024-05-23 14:18] LABS: Glycohemoglobin (HgbA1c) 5.7 % (4.0-5.6)
--- NOTE | 2024-05-23 14:43 | CM ---
Patient with Dx HF, LUCIO, ASCVD, Persistent A Fib. O2 6L. Nitro gtt d/c'ed. Receiving IV Lasix, IV Folic Acid.
Met with patient who who resides with his in a 1 story house with 2 PAOLA.
The patient has been independent in ADLs and ambulation.
He is active, drives, mows his lawn and works in his garden.
The patient says he has been unsteady on his feet since yesterday.
DME - RW, SPC, crutches
No prior VN or SNF.
PCP - Jw Danielle
Pharmacy - [facility]
CM Consult: Substance Abuse
Per Dr Steele's notes: Alcohol: Daily (1/2 bottle wine daily)
Offered BCARES and patient declined, saying he has no problems with his Etoh use.
Message to Dr Courtney and Fatou Alan requesting PT/OT Evals.
Offered VN for HF Education - patient agrees and chooses [facility].
Plan follow up after seen by PT/OT.
Plan watch for home O2 needs.
Probable home with [facility].
--- NOTE | 2024-05-23 18:46 | W.PN.HOSP.TC ---
Addendum entered and electronically signed by Mable Courtney MD 05/23/24 20:13:
I saw and evaluated the patient independently. I reviewed the resident�s note and agree with findings and plan as documented by Dr. Alan.
GENERAL: well developed, well nourished, male in no apparent distress
HEENT: NC/AT--6L O2 requirements
HEART: irreg irreg and tachycardic
LUNGS : crackles at bases bilaterally
ABDOM: soft, nontender, nondistended, + bowel sounds
EXT: no cyanosis, clubbing, or edema
NEUROLOGIC: grossly intact
Acute on Chronic HFrEF--ECHO with EF 30-35% but technically difficult study--cont diuresis but watch creat--might be early cardiorenal syndrome--creat might improve with diuresis--off IV NTG--cont spironolactone and IV lasix--apprec cards-- -
Symptoms likely exacerbated by cessation of his prescribed Lasix doing (none in the past 10 days).
Acute Hypoxemic Respiratory Insufficiency secondary to the above--cont diuresis--O2 requirements should improve--cont CPAP as needed HS--PFTs done as outpt show obstructive lung disease with improvement with bronchodilators--consider pulm consult
LUCIO - Likely secondary to CHF/prerenal etiology - Holding Entresto/ARB for now--consideration for renal consult
ASCVD - Stable. No chest pain, palpitations, etc associated with his dyspnea -- Continue usual CV med regimen including ASA, statin, etc.
Persistent Atrial Fibrillation- Stable. Currently in AV paced rhythm--cont eliquis and amio
Prostate Cancer- No prior treatment - Watchful waiting.
DVT Prophylaxis: On Eliquis
Code Status: Full
Original Note:
Today's Communication/Plan
-
Consult cardiology regarding cardio renal syndrome
Consult nephrology for consistently rising serum creatinine levels
consult pulmonology for ILD
Repeat CMP
MOnitor input output
Assessment / Plan
Assessment / Plan
IMPRESSION
84/male on oxygen via nasal canula, acute on chronic heart failure, november2023 EF 35 percent.
ASSESSMENT
ACUTE ON CHRONIC CHF WITH REDUCED EF
MODERATE OBSTRUCTIVE LUNG DISEASE
PERSISTENT ATRIAL FIBRILLATION
LUCIO
#1 ACUTE ON CHRONIC CHF WITH REDUCED EF(30)
EF dropped from november 2023 35 to 30 today
Follow I/Os, daily weights, etc.
Wean from BiPAP as able.
TTE done today showed EF 30, MODERATE MR
CONTINUE LASIX AND SPIRONOLACTONE
CONSULT CARDIOLOGY
#2 MODERATE OBSTRUCTIVE LUNG DISEASE
According to his PFTS done on 05/12 patient showed significant improvement in his FEV1 after bronchodilator therapy(30PERCENT)
moderate diffusion impairement
Chest xray done today shows Diffusely increased interstitial/bronchovascular markings bilaterally with some ill-defined opacities within the right lung base. No pleural effusions. Findings most likely represent interstitial pulmonary edema with
superimposed pneumonia not excluded within the right lung base. No effusions.
consult pulmonology
#3PERSISTENT ATRIAL FIBRILLATION
AV dual-paced rhythm with prolonged AV conduction PREMATURE VENTRICULAR AND
FUSION COMPLEXES
ABNORMAL ECG
WHEN COMPARED WITH ECG OF 21-MAR-2024
VENT. RATE HAS INCREASED BY 11 BPM
#4AKI
Patient creatinine level 1.8
baseline is 1.1
could be due to overdiuresis or underdiuresis
consult nephrology
DVT Prophylaxis: On Eliquis
Code Status: Full
Anticipated Discharge: 24 - 48 hours
Subjective/Interval History
-
Date of Service: May 23, 2024
Could not sleep last night due to shortness of breath, cpap helped him breathe better and was able to sleep for 3 hours
Objective Data
-
Labs:
Laboratory Results
05/23/24
11:59
Sodium 142
Potassium 5.4 H
Chloride 101
Carbon Dioxide 26
BUN 48 H
Creatinine 1.8 H
Glucose 118 H
Calcium 9.1
Vital Signs:
Vital Signs
Temp Pulse Resp BP Pulse Ox
98.2 F 120 25 113/99 100
05/23/24 15:55 05/23/24 17:00 05/23/24 12:19 05/23/24 17:00 05/23/24 16:30
I&O
05/22/24 05/23/24 05/24/24
06:59 06:59 06:59
Output Total 300 / 300 1100 / 1100
Balance -300 / -300 -1100 / -1100
Review of Systems
-
All other systems: Reviewed and negative
Physical Exam
-
General: Comfortable and Conversant
HEENT: Normocephalic and Atraumatic
Respiratory: Wheezes, Rales, Crackles and Decreased Breath Sounds
Cardiac: Regular Rhythm and S1/S2
GI: Soft, Nontender and Normal Bowel Sounds
Genito-urinary: No Costovertebral Tender
Musculoskeletal: No Clubbing, No Cyanosis and No Edema
Skin: Warm and Dry
Neuro: Awake and Oriented
Hematologic / Lymphatic: No Lymphadenopathy
Psych: Calm
[2024-05-23 19:43] LABS: Troponin I 0.096 ng/ml
--- NOTE | 2024-05-23 23:00 | PTCARENOTE ---
AAOx3 forgetful at times. A-paced, occasional V-A Paced int he 70-120. SBP in the 90's. Lung sounds are diminished and fine crackles at the bases. SaO2 95%. Pt O2 was wean to 4L. Pt refused BIPAP HS. pt has been using the urinal. Abd round. Call
dawson within reach and bed alarm in place.
[2024-05-24] VITALS (12 sets, daily range): BP systolic 92–132; BP diastolic 57–99; PULSE 76; O2SAT 100; BMI 27.4
[2024-05-24 04:36] LABS: Hematocrit 36.1 % (39.0-52.0); Hemoglobin 12.4 g/dL (13.0-18.0); Mean Corp Hgb Conc. 34.3 g/dL (33.0-37.0); Mean Corpuscular Hgb 33.2 pg (27.0-31.0); Mean Corpuscular Volume 96.5 fL (80.0-94.0); Mean Platelet Volume 10.8 fL (7.4-10.4); Platelet Count 158 10^3/uL (130-400); Red Blood Cell Count 3.74 10^6/uL (4.70-6.10); Red Cell Dist. Width 13.6 % (11.5-14.5)
[2024-05-24 04:48] LABS: INR 1.86; PT 21.3 Sec (11.4-14.6)
[2024-05-24 04:49] LABS: APTT 38.9 Sec (23.4-35.0)
[2024-05-24 04:50] LABS: Blood Urea Nitrogen 55 mg/dl (9-20); Calcium 8.7 mg/dl (8.4-10.2); Carbon Dioxide 24 mmol/L (22-30); Chloride 103 mmol/L (98-107); Estimated Creatinine Clearance 35 ml/min; Glucose 99 mg/dl (70-99); HDL Cholesterol 52 mg/dl; LDL Cholesterol, Calculated 52 mg/dl; Potassium 4.4 mmol/L (3.5-5.1); Sodium 139 mmol/L (135-145); Total Cholesterol 116 mg/dl (50-199); Triglyceride 64 mg/dl (10-149); Very Low Density Lipoprotein 12 mg/dl (0-30); eGFR 37.12
[2024-05-24] MEDS: PACERONE 200 MG PO (08:36)
[2024-05-24] MEDS: ELIQUIS 2.5 MG PO ×2 (08:36→20:41)
[2024-05-24] MEDS: LIPITOR 40 MG PO (08:36)
[2024-05-24] MEDS: ASPIR LOW (ENTERIC COATED) 81 MG PO (08:36)
[2024-05-24] MEDS: COREG 6.25 MG PO (08:36)
[2024-05-24] MEDS: FOLVITE 1 MG PO (08:36)
[2024-05-24] MEDS: THIAMINE INJECTION 200 MG IV ×2 (08:37→20:40)
[2024-05-24] MEDS: LASIX 40 MG IV (08:37)
--- NOTE | 2024-05-24 08:51 | W.PN.CD ---
Today's Communication / Plan
-
IV lasix this AM transition to PO tomorrow
Switch coreg to metop for AF
Impression / Plan
-
BACKGROUND:
Av Specialist: Dr. eLvy
Acute hypoxic respiratory failure, in the setting of acute HFrEF
-Initially requiring BiPAP, plan as below
-Wean O2 as tolerated
ICM
HFrEF, acute on chronic dry weight ~200 lbs
-40 mg IV today, transition to PO tomorrow
-He endorsed dizziness (OH?) and his furosemide was slowly tapered down, he has been off diuretic for 10 days
-Lowest documented LVEF 20% in 2019
-GDMT as tolerated
-Beta-efrain: switch coreg to metop given low BP
-SGLT2: Jardiance 10 mg daily
-ACEI/ARB: holding Sacubitril/valsartan 49-51 mg BID
-MRA: holding Spironolactone 12.5 mg
-ICD: Medtronic
-Update TTE
-Trend daily weight, I's/O, and BMP with diuresis
-Heart failure education
Abnormal troponin
-Troponin 0.132, trend to peak
-No CP
Persistent atrial fibrillation
-Rates are elevated, on amiodarone and switching to metoprolol to hopefully help with BP
-Oral Anticoagulation: Apixaban has been decreased to 2.5 mg twice daily as his creatinine is now over 1.5, follow renal function
-[id number]: score at least 5 (Heart failure, HTN, age 75 or more, Vascular disease)
Lightheadedness
-Check orthostatics tomorrow
-If orthostatic is positive consider decreasing Entresto, he will need standing diuretic
CAD, stable without angina
LUCIO
-In the setting of acute HFrEF, trend with diuresis
Mild to moderate MR
Former smoker, continue cessation recommended
Daily EtOH consumption, on MSAS
Prostate cancer, watchful waiting
DATA:
TTE, 12/29/2023:
Left ventricle is mildly dilated.
Estimated LVEF 35%.
Global hypokinesis.
Very severe biatrial enlargement.
Mild to moderate mitral regurgitation.
Mildly dilated aortic root and ascending aorta.
Compared to prior study of 03/06/2022 the LVEF has fallen from 45-50% to 35%. The
LV is now dilated.
Physical Exam
Vital Signs/Labs
Vital Signs
Temp Pulse Resp BP Pulse Ox
97.9 F 101 17 96/64 99
05/24/24 08:03 05/24/24 06:00 05/24/24 06:00 05/24/24 06:00 05/24/24 06:00
05/23/24 05/24/24 05/25/24
06:59 06:59 06:59
Actual Weight 205 lb 14.588 oz 201 lb 8.04 oz
05/24/24 04:19
05/24/24 04:19
PT 21.3 Sec (11.4-14.6) H 05/24/24 04:19
INR 1.86 05/24/24 04:19
APTT 38.9 Sec (23.4-35.0) H 05/24/24 04:19
Triglycerides 64 mg/dl (10-149) 05/24/24 04:19
LDL Cholesterol, Calc 52 mg/dl 05/24/24 04:19
VLDL Cholesterol, Calc 12 mg/dl (0-30) 05/24/24 04:19
HDL Cholesterol 52 mg/dl 05/24/24 04:19
05/22/24
22:24
Piv-J-Xqoitruhqno Pept 8830
LAB Results
05/22/24 05/23/24 05/23/24
22:24 06:37 11:59
Troponin I 0.031 0.132 H* 0.140 H*
05/23/24
19:05
Troponin I 0.096 H* D
Physical Exam
Constitutional: No acute distress
EENT: Anicteric
Cardiovascular: Pedal edema is absent and Rhythm/rate is irregular
Respiratory: Respiratory effort normal and Lungs clear to auscul.
GI: Soft
Neuro/Psych: AO x 3
Data Reviewed
-
Date of Service: May 24, 2024
EKG: Tracing Personally Visualized and interpreted (paced)
Echo: Report Reviewed by me
Labs: Labs Reviewed by me
--- NOTE | 2024-05-24 09:28 | VNURNOTE ---
Home Health Liaison spoke with patient to discuss [facility] nurse/therapy, visits, schedule and homebound status. Patient is agreeable and understands that visits at home will be 2-3 x per week to assess and teach medical management. He confirms he has
a scale at home.
Patient provided with liaison contact information. Patient is aware that [facility] will contact them for start of care in 1-2 days after discharge from .
[facility] referral completed in [facility].
--- NOTE | 2024-05-24 13:04 | W.CON.NEPH ---
Consultation
-
Date/Time Consultation Requested: 05/23/241954
Date/Time Consultation Performed: 05/24/24 1330
Requesting Provider: tracy Wise
Performing Provider: Claire Faustin
Reason for Consultation: LUCIO
Medical History
-
Chief Complaint: SOB
History of Present Illness:
Patient is an 84y M with PMH significant for ASCVD, ischemic cardiomyopathy and CHFrEF(35%) ON ENTRESTO, LASIX, Jardiance, Spironolactone, HLD on Ezetemibe, Afib s/p Ac with Sherry who presents to ED complaining of SOB on 05/23. Patient underwent
PVI ablation in February 2024 due to A-Fib. At that time, he was newly started on amiodarone and Jardiance. He was taking Lasix 20mg BID at that time and has since tapered his dosing significantly due to low Bps. For the past few weeks, he has been
taking Lasix 'as needed' only. He states that he has taken no Lasix in the past 10 days at all.
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 He appreciates significant abdominal distention / 'bloating' and decreased appetite. He does not note significant LE edema. In the ED, he was in significant distress and was placed on
BiPAP, now on 4lit of O2. With lasix he lost about 10lbs since admit. HIs cr was at 1.1 in February now high at 1.8 no change hence nephrology consulted. He reports no dysuria. He admits of taking NSAIDs at home. SOB improved, no CP. feels mild dizzy
on activity. No n/v.
Past Medical History
ASCVD
Ischemic Cardiomyopathy
Chronic HFrEF (35% - November 2023)
Persistent Atrial Fibrillation
Hypertension
Prostate Cancer
Past Surgical History: Other (PTCA with Stents (x 12) PPM / AICD Placement PVI Ablation x 2 Appendectomy)
Social History
Tobacco: Former Smoker
Alcohol: Daily (7ounces/daily-wine)
Personal:
Living: With Family
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
Family History
no ckd
Family History: Not Pertinent
Allergies / Home Medications
Allergy/AdvReac Type Severity Reaction Status Date / Time
No Known Allergies Allergy Verified 03/21/24 08:10
�Medication �Instructions �Recorded �Confirmed �Type
cholecalciferol (vitamin D3) 25 2,000 unit PO DAILY Supplement 02/16/15 05/22/24 History
mcg (1,000 unit) capsule (Vitamin
D3)
ezetimibe 10 mg tablet 10 mg PO DAILY High cholesterol 02/16/15 05/22/24 History
apixaban 5 mg tablet (Eliquis) 5 mg PO BID Blood clot 08/25/18 05/22/24 History
prevention/tx
aspirin 81 mg tablet,delayed 81 mg PO DAILY Blood clot 06/27/19 05/22/24 History
release prevention/tx
coenzyme Q10 200 mg capsule (Co 200 mg PO DAILY Supplement 06/27/19 05/22/24 History
Q-10)
spironolactone 25 mg tablet 12.5 mg PO DAILY Blood pressure 06/27/19 05/22/24 History
carvedilol 6.25 mg tablet 6.25 mg PO BID Blood pressure 02/06/22 05/22/24 History
ibuprofen 200 mg tablet 200 mg PO DAILYPRN PRN MILD PAIN 02/06/22 05/22/24 History
sacubitril 49 mg-valsartan 51 mg 1 tab PO BID Heart Failure 02/06/22 05/22/24 History
tablet (Entresto)
atorvastatin 40 mg tablet 40 mg PO DAILY 03/12/22 05/22/24 History
empagliflozin 10 mg tablet 10 mg PO DAILY Diabetes 03/11/24 05/22/24 History
(Jardiance)
furosemide 20 mg tablet 20 mg PO DAILYPRN PRN swelling 03/11/24 05/22/24 History
multivitamin 1 tab PO DAILY Supplement 03/11/24 05/22/24 History
amiodarone 200 mg tablet 200 mg PO BID #180 tabs 03/21/24 05/22/24 Rx
Review of Systems
-
All complete 12 point ROS have been inquired and found negative other than stated in HPI
All other systems: Negative unless noted
Physical Exam
Vital Signs
Vital Signs
Temp Pulse Resp BP Pulse Ox
97.9 F 83 24 98/75 96
05/24/24 11:20 05/24/24 12:00 05/24/24 12:00 05/24/24 08:35 05/24/24 12:00
Lab Results
WBC 7.0 10^3/uL (4.8-10.8) 05/24/24 04:19
RBC 3.74 10^6/uL (4.70-6.10) L 05/24/24 04:19
Hgb 12.4 g/dL (13.0-18.0) L 05/24/24 04:19
Hct 36.1 % (39.0-52.0) L 05/24/24 04:19
Plt Count 158 10^3/uL (130-400) 05/24/24 04:19
Sodium 139 mmol/L (135-145) 05/24/24 04:19
Potassium 4.4 mmol/L (3.5-5.1) 05/24/24 04:19
Chloride 103 mmol/L (98-107) 05/24/24 04:19
Carbon Dioxide 24 mmol/L (22-30) 05/24/24 04:19
BUN 55 mg/dl (9-20) H 05/24/24 04:19
Creatinine 1.8 mg/dL (0.7-1.3) H 05/24/24 04:19
eGFR 37.12 05/24/24 04:19
Glucose 99 mg/dl (70-99) 05/24/24 04:19
Calcium 8.7 mg/dl (8.4-10.2) 05/24/24 04:19
Kqf-T-Nvbaeggtvbl Pept 8830 pg/ml 05/22/24 22:24
Albumin 4.6 g/dl (3.5-5.0) 05/22/24 22:24
echo;l
CONCLUSIONS
TDS, Definity should be used for subsequent studies.
Mildly dilated LV with moderate to severely reduced systolic function.
Estimated EF of 30%, however, poor endocardial definition.
Global diffuse hypokinesis. Stage II diastolic dysfunction suggestive of
abnormal relaxation and increased filling pressures.
Dilated RV with reduced systolic function.
Mild to moderate mitral regurgitation.
Estimated pulmonary artery pressure of 29 mmHg, assuming a right atrial
pressure of 3 mmHg.
Compared to prior from December 29, 2023, on [id number] comparison EF is now
moderate to severely reduced estimated at 30% previously estimated at 35%.
CXR:05/23:
IMPRESSION:
Diffusely increased interstitial/bronchovascular markings bilaterally with some ill-defined opacities within the right lung base. No pleural effusions. Findings most likely represent interstitial pulmonary edema with superimposed pneumonia not
excluded within the right lung base. No effusions.
Physical Exam
General: Awake, Alert, Oriented, AOx3 and No Distress
HEENT: EOMI, Anicteric, Neck Supple and No JVD
Respiratory: Clear, Normal Excursion and Nonlabored Respirations
Cardiac: S1/S2, Regular Rate/Rhythm and Murmur
Breast: Deferred by me
Abdomen: Soft, Nontender and Nondistended
Musculoskeletal: No Cyanosis and No Edema
Skin: No Rash
Neuro: Nonfocal/Grossly Intact
Psych: Mood/afflect pleasant, Insight/judgement good and Appropriate
Data Reviewed
-
Radiology: Report Reviewed by me and Discussed with Patient
Labs: Labs Reviewed by me and Discussed with Patient
Assessment/Plan
-
IMP:
Acute hypoxic respiratory failure, in the setting of acute HFrEF
ICM
HFrEF, acute on chronic dry weight ~200 lbs
LUCIO-cr 1.1 in 02/2024
ICD: Medtronic
Abnormal troponin
Persistent atrial fibrillation
CAD
Mild to moderate MR
Daily EtOH consumption
Prostate cancer
PLan:
A/w CHF flare
LUCIO-likely from cardiorenal, check basleine UA
also follow bladder scan with prior h/o prostate ca
check renal US
hold Entresto, Spironolactone
we also reviewed to avoid NSAIDS and nephrotoxins
BP are also soft, BB changed per cards
may need midodrine support
diuresis changed to po per cards
he will need to cont lasix moving forward
mild hyperkalemia improving
start TEDs
d/w pt and nrusing
[2024-05-24 14:05] LABS: Urine Albumin Negative (Neg - Trace); Urine Bilirubin Negative (Negative); Urine Character Clear (Clear); Urine Color Yellow; Urine Glucose 3+ (Negative); Urine Ketone Negative (Negative); Urine Leukocyte Negative (Negative); Urine Nitrite Negative (Negative); Urine Occult Blood Negative (Negative); Urine Specific Gravity 1.015 (<1.030); Urine Urobilinogen Negative (Neg - 1+)
[2024-05-24 14:29] LABS: Urine Sodium 107 mmol/L (30-90)
--- NOTE | 2024-05-24 15:20 | CM ---
Patient seen at bedside with physician and residents. Patient plan for discharge is home with [facility] and pending PT/OT assessment. Patient also pending home O2 assessment as he has not had home O2 in the past. CM will continue to follow for discharge
planning needs.
Plan; home with VN; watch for home O2 needs, pending PT/OT.
--- NOTE | 2024-05-24 15:45 | W.PN.HOSP.TC ---
Addendum entered and electronically signed by Mable Courtney MD 05/24/24 19:58:
I saw and evaluated the patient independently. I reviewed the resident�s note and agree with findings and plan as documented by Dr. Alan.
GENERAL: well developed, well nourished, male in no apparent distress
HEENT: NC/AT--still with O2 requirements
HEART: irreg irreg and tachycardic
LUNGS : crackles at bases bilaterally
ABDOM: soft, nontender, nondistended, + bowel sounds
EXT: no cyanosis, clubbing, or edema
NEUROLOGIC: grossly intact
Acute on Chronic HFrEF--ECHO with EF 30-35% but technically difficult study--cont diuresis but creat 1.8--likely cardiorenal syndrome--creat might improve with diuresis--off IV NTG--cont spironolactone and IV lasix as able per renal--apprec cards--
- Symptoms likely exacerbated by cessation of his prescribed Lasix dosing (none in the past 10 days).
Acute Hypoxemic Respiratory Insufficiency secondary to the above--cont diuresis--O2 requirements should improve--cont CPAP as needed HS--PFTs done as outpt show obstructive lung disease with improvement with bronchodilators--consider pulm consult if
no improvement
LUCIO - Likely secondary to CHF/cardiorenal etiology - Holding Entresto/ARB for now-- renal consult--still needs diuresis
ASCVD - Stable. No chest pain, palpitations, etc associated with his dyspnea -- Continue usual CV med regimen including ASA, statin, etc.
Persistent Atrial Fibrillation- Stable. Currently in AV paced rhythm--cont eliquis and amio
Prostate Cancer- No prior treatment - Watchful waiting.
DVT Prophylaxis: On Eliquis
Code Status: Full
Original Note:
Today's Communication/Plan
-
Transfer to Telemetry
Wean off oxygen
Visiting nurse and home oxygen therapy requirements
Assessment / Plan
Assessment / Plan
IMPRESSION
84/male on oxygen via nasal canula, acute on chronic heart failure, comfortable and conversant
ASSESSMENT
ACUTE ON CHRONIC CHF WITH REDUCED EF
Lower blood pressure and tachycardia
PERSISTENT ATRIAL FIBRILLATION
LUCIO
#1 ACUTE ON CHRONIC CHF WITH REDUCED EF(30)
Follow I/Os, daily weights,blood pressures.
Wean from oxygen
once done do walk test to assess for home oxygen therapy
Switch to oral lasix 40mg bid
#2Lower blood pressure and tachycardia
Cardiology switched carvedilol to metoprolol
#3PERSISTENT ATRIAL FIBRILLATION
-Cardiology plans to switch to metoprolol to help with blood pressure
-continue oral anticoagulation
keep check on heart rate
#4AKI
Patient creatinine level 1.8
baseline is 1.1
LUCIO-likely from cardiorenal
follow ultrasound and urinalysis
repeat CMP
urinalysis
Transfer to TELEMETRY
Discussed Visiting nurse requirement and home oxygen requirement
DVT Prophylaxis: On Eliquis
Code Status: Full
Anticipated Discharge: 24 - 48 hours
Subjective/Interval History
-
Date of Service: May 24, 2024
84/ M with PMH significant for ASCVD, ischemic cardiomyopathy and CHFrEF(30) reduced from(35% - November 2023).
Patient on 4 liters of oxygen, comfortable and conversant.
Objective Data
-
Labs:
Laboratory Results
05/24/24
04:19
WBC 7.0
Hgb 12.4 L
Hct 36.1 L
Plt Count 158
PT 21.3 H
INR 1.86
APTT 38.9 H
Sodium 139
Potassium 4.4
Chloride 103
Carbon Dioxide 24
BUN 55 H
Creatinine 1.8 H
Glucose 99
Calcium 8.7
Vital Signs:
Vital Signs
Temp Pulse Resp BP Pulse Ox
97.9 F 83 24 98/75 95
05/24/24 11:20 05/24/24 12:00 05/24/24 12:00 05/24/24 08:35 05/24/24 14:56
I&O
05/23/24 05/24/24 05/25/24
06:59 06:59 06:59
Intake Total 240 / 240 240 / 240
Output Total 300 / 300 2024 875 / 875
Balance -300 / -300 -1785 / -1785 -635 / -635
Review of Systems
-
All other systems: Reviewed and negative
Physical Exam
-
General: Well Developed, Comfortable, Conversant and Other (on 4 litre of oxygen)
HEENT: Normocephalic, Atraumatic and Anicteric
Respiratory: Wheezes, Rales and Crackles
Cardiac: Regular Rhythm and S1/S2
GI: Soft and Nontender
Genito-urinary: No Costovertebral Tender
Musculoskeletal: No Clubbing, No Cyanosis and No Edema
Skin: Other (senile purpura)
Neuro: Awake, Alert and Oriented
Hematologic / Lymphatic: No Lymphadenopathy
Psych: Calm
--- NOTE | 2024-05-24 16:12 | PTCARENOTE ---
Pt downgraded to tele. Report called to receiving RN. Belongings collected from room. at bedside. Transferred to [facility].
[2024-05-24] MEDS: TOPROL XL 25 MG PO (20:41)
[2024-05-25 03:55] VITALS: BP 112/73
[2024-05-25 06:00] VITALS: BMI 27.1
[2024-05-25 06:08] LABS: ALT (SGPT) 47 U/L (0-50); AST (SGOT) 34 U/L (17-59); Albumin 3.6 g/dl (3.5-5.0); Alkaline Phosphatase 67 U/L (38-126); Blood Urea Nitrogen 56 mg/dl (9-20); Carbon Dioxide 31 mmol/L (22-30); Chloride 101 mmol/L (98-107); Estimated Creatinine Clearance 42 ml/min; Glucose 94 mg/dl (70-99); Magnesium 2.3 mg/dl (1.6-2.3); Potassium 4.5 mmol/L (3.5-5.1); Sodium 140 mmol/L (135-145); Total Bilirubin 0.8 mg/dl (0.2-1.3); Total Protein 5.9 g/dl (6.3-8.2); eGFR 46.19
[2024-05-25 07:00] VITALS: BP 106/72
[2024-05-25] MEDS: TOPROL XL 25 MG PO (08:31)
[2024-05-25] MEDS: ASPIR LOW (ENTERIC COATED) 81 MG PO (08:31)
[2024-05-25] MEDS: LIPITOR 40 MG PO (08:31)
[2024-05-25] MEDS: PACERONE 200 MG PO (08:31)
[2024-05-25] MEDS: LASIX 40 MG PO (08:31)
[2024-05-25] MEDS: FOLVITE 1 MG PO (08:31)
[2024-05-25] MEDS: ELIQUIS 2.5 MG PO (08:31)
[2024-05-25] MEDS: THIAMINE INJECTION 200 MG IV (08:31)
--- NOTE | 2024-05-25 10:13 | W.PN.HOSP.TC ---
Addendum entered and electronically signed by Mable Courtney MD 05/25/24 20:56:
I saw and evaluated the patient independently. I reviewed the resident�s note and agree with findings and plan as documented by Dr. Alan.
GENERAL: well developed, well nourished, male in no apparent distress
HEENT: NC/AT--still with O2 requirements
HEART: irreg irreg and tachycardic
LUNGS : clear to auscultation bilaterally
ABDOM: soft, nontender, nondistended, + bowel sounds
EXT: no cyanosis, clubbing, or edema
NEUROLOGIC: grossly intact
Acute on Chronic HFrEF--ECHO with EF 30-35% but technically difficult study--cont diuresis creat 1.5--likely cardiorenal syndrome----off IV NTG--cont spironolactone and IV lasix as able per renal--apprec cards-- - Symptoms likely exacerbated by
cessation of his prescribed Lasix dosing (none in the past 10 days)--cleared for d/c by renal/cards--changed to oral meds
Acute Hypoxemic Respiratory Insufficiency secondary to the above--cont diuresis--O2 requirements should improve, off O2--cont CPAP as needed HS--PFTs done as outpt show obstructive lung disease with improvement with bronchodilators--followup with
pulm as outpt
LUCIO - Likely secondary to CHF/cardiorenal etiology - Holding Entresto/ARB for now--apprec renal consult
ASCVD - Stable. No chest pain, palpitations, etc associated with his dyspnea -- Continue usual CV med regimen including ASA, statin, etc.
Persistent Atrial Fibrillation- Stable. Currently in AV paced rhythm--cont eliquis and amio
Prostate Cancer- No prior treatment - Watchful waiting.
DVT Prophylaxis: On Eliquis
Code Status: Full
Original Note:
Today's Communication/Plan
-
discharge today
Assessment / Plan
Assessment / Plan
IMPRESSION
84/male on oxygen via nasal canula, acute on chronic heart failure, comfortable and conversant
ASSESSMENT
ACUTE ON CHRONIC CHF WITH Preserved EF
PERSISTENT ATRIAL FIBRILLATION
LUCIO
#1 ACUTE ON CHRONIC CHF WITH REDUCED EF(30)
Patient able to breathe on room air
maintained saturation after walking
Cardiology advised to hold GDMT due to borderline renal function tests
On oral Lasix today
#2PERSISTENT ATRIAL FIBRILLATION
continue metoprolol
#3PERSISTENT ATRIAL FIBRILLATION
-
-continue eliquis and amiodarone
keep check on heart rate
#4AKI
Creatinine 1.5
renal ultrasound normal
monitor rfts
Visiting nurse required on discharge
DVT Prophylaxis: On Eliquis
Code Status: Full
Anticipated Discharge: Today
Subjective/Interval History
-
Date of Service: May
84/M admitted with acute on chronic heart failure, sitting comfortably in bed, conversant and has 95 percent oxygen saturation at bedside without oxygen
tachycardic
Objective Data
-
Labs:
Laboratory Results
05/25/24
05:15
Sodium 140
Potassium 4.5
Chloride 101
Carbon Dioxide 31 H
BUN 56 H
Creatinine 1.5 H
Glucose 94
Calcium 9.0
Total Bilirubin 0.8
AST 34
ALT 47
Alkaline Phosphatase 67
Vital Signs:
Vital Signs
Temp Pulse Resp BP Pulse Ox
97.9 F 102 17 106/72 93
05/25/24 07:00 05/25/24 07:00 05/25/24 07:00 05/25/24 07:00 05/25/24 07:00
I&O
05/24/24 05/25/24 05/26/24
06:59 06:59 06:59
Intake Total 240 / 240 480 / 480
Output Total 2024 875 / 875
Balance -1785 / -1785 -395 / -395
Review of Systems
-
All other systems: Reviewed and negative
Physical Exam
-
General: Well Developed, Well Nourished, No Apparent Distress, Comfortable and Conversant
HEENT: Normocephalic, Atraumatic and Oxygen
Respiratory: Rales and Crackles (occasional)
Cardiac: S1/S2 and Irregular Rhythm
GI: Soft, Nontender and Normal Bowel Sounds
Genito-urinary: No Costovertebral Tender and Clear Urine
Musculoskeletal: No Clubbing and No Cyanosis
Skin: Other (senile purpura)
Neuro: Awake, Alert and Oriented
Hematologic / Lymphatic: No Lymphadenopathy
Psych: Calm
--- NOTE | 2024-05-25 10:28 | W.PN.CD ---
Today's Communication / Plan
-
-Transitioned to Lasix 40 mg PO daily starting today, which is the recommended home regimen for now.
-GDMT medications being held secondary to LUCIO; reevaluate as outpatient--creatinine improving.
-Outpatient follow-up with Cardiology.
Impression / Plan
-
BACKGROUND:
[employer]: Dr. Levy
Acute hypoxic respiratory failure, in the setting of acute HFrEF
-Initially requiring BiPAP, plan as below
-Wean O2 as tolerated
ICM/HFrEF, acute on chronic--dry weight ~200 lbs (EF 30%)
-Transitioned to Lasix 40 mg PO daily starting today, which is the recommended home regimen for now.
-He endorsed dizziness (OH?) and his furosemide was slowly tapered down, he had been off diuretic for 10 days
-Lowest documented LVEF 20% in 2019
-GDMT as tolerated
-Beta-efrain: switch coreg to metop given low BP
-SGLT2: Jardiance 10 mg daily
-ACEI/ARB: holding Sacubitril/valsartan 49-51 mg BID
-MRA: holding Spironolactone 12.5 mg
-ICD: Medtronic
-GDMT medications being held secondary to LUCIO; reevaluate as outpatient--creatinine improving.
Abnormal troponin
-Troponin 0.132, trend to peak
-No CP
-Acute nonischemic myocardial injury in the setting of CHF and LUCIO.
Persistent atrial fibrillation
-Rates are elevated, on amiodarone and switching to metoprolol to hopefully help with BP
-Oral Anticoagulation: Apixaban has been decreased to 2.5 mg twice daily as his creatinine is now over 1.5, follow renal function
-[id number]: score at least 5 (Heart failure, HTN, age 75 or more, Vascular disease)
CAD, stable without angina
LUCIO
-In the setting of acute HFrEF, trend with diuresis
-Nephrology following; nephrotoxic medications being held.
Former smoker, continue cessation recommended
Daily EtOH consumption, on MSAS
Prostate cancer, watchful waiting
DATA:
TTE, 12/29/2023:
Left ventricle is mildly dilated.
Estimated LVEF 35%.
Global hypokinesis.
Very severe biatrial enlargement.
Mild to moderate mitral regurgitation.
Mildly dilated aortic root and ascending aorta.
Compared to prior study of 03/06/2022 the LVEF has fallen from 45-50% to 35%. The
LV is now dilated.
Physical Exam
Vital Signs/Labs
Vital Signs
Temp Pulse Resp BP Pulse Ox
97.9 F 102 17 106/72 93
05/25/24 07:00 05/25/24 07:00 05/25/24 07:00 05/25/24 07:00 05/25/24 07:00
05/24/24 05/25/24 05/26/24
06:59 06:59 06:59
Actual Weight 91.4 kg 90.718 kg
05/24/24 04:19
05/25/24 05:15
PT 21.3 Sec (11.4-14.6) H 05/24/24 04:19
INR 1.86 05/24/24 04:19
APTT 38.9 Sec (23.4-35.0) H 05/24/24 04:19
Magnesium 2.3 mg/dl (1.6-2.3) 05/25/24 05:15
Triglycerides 64 mg/dl (10-149) 05/24/24 04:19
LDL Cholesterol, Calc 52 mg/dl 05/24/24 04:19
VLDL Cholesterol, Calc 12 mg/dl (0-30) 05/24/24 04:19
HDL Cholesterol 52 mg/dl 05/24/24 04:19
05/22/24
22:24
[id number] Pept 8830
LAB Results
05/22/24 05/23/24 05/23/24
22:24 06:37 11:59
Troponin I 0.031 0.132 H* 0.140 H*
05/23/24
19:05
Troponin I 0.096 H* D
Physical Exam
Constitutional: No acute distress and Comfortable
EENT: Anicteric
Cardiovascular: Rhythm & rate is regular, Pedal edema is absent, Systolic murmur present (09/05) and S1S2 is normal
Respiratory: Respiratory effort normal, Crackles Absent and Wheeze Present (Very mild expiratory)
GI: Soft
Neuro/Psych: AO x 3
Other: Skin (Warm, dry, intact)
Data Reviewed
-
Date of Service: May 25, 2024
EKG: Tracing Personally Visualized and interpreted (Telemetry: AV paced)
Labs: Labs Reviewed by me
[2024-05-25 11:00] VITALS: BP 104/69
--- NOTE | 2024-05-25 12:15 | W.PN.NEPH.PH ---
Today's Communication / Plan
-
follow BMP
Assessment/Plan
-
IMP:
Acute hypoxic respiratory failure, in the setting of acute HFrEF
ICM
HFrEF, acute on chronic dry weight ~200 lbs
LUCIO-cr 1.1 in 02/2024
ICD: Medtronic
Abnormal troponin
Persistent atrial fibrillation
CAD
Mild to moderate MR
Daily EtOH consumption
Prostate cancer
PLan:
off entresto and spironolactone for now
could consider restart of spironolactone as outpatient first
entresto may be more difficult to use unless BP runs higher
follow BMP
-
-
Date of Service: May 25, 2024
CC / HPI / ROS
-
Chief Complaint:
LUCIO
History of Present Illness:
LUCIO/Cr down to 1.5
on po lasix with stable weight
K normal
mild metabolic alkalosis
Review of Systems:
no CP/SOB
Labs
-
Labs:
WBC 7.0 10^3/uL (4.8-10.8) 05/24/24 04:19
RBC 3.74 10^6/uL (4.70-6.10) L 05/24/24 04:19
Hgb 12.4 g/dL (13.0-18.0) L 05/24/24 04:19
Hct 36.1 % (39.0-52.0) L 05/24/24 04:19
Plt Count 158 10^3/uL (130-400) 05/24/24 04:19
Sodium 140 mmol/L (135-145) 05/25/24 05:15
Potassium 4.5 mmol/L (3.5-5.1) 05/25/24 05:15
Chloride 101 mmol/L (98-107) 05/25/24 05:15
Carbon Dioxide 31 mmol/L (22-30) H 05/25/24 05:15
BUN 56 mg/dl (9-20) H 05/25/24 05:15
Creatinine 1.5 mg/dL (0.7-1.3) H 05/25/24 05:15
eGFR 46.19 05/25/24 05:15
Glucose 94 mg/dl (70-99) 05/25/24 05:15
Calcium 9.0 mg/dl (8.4-10.2) 05/25/24 05:15
Ati-G-Xozjgmabaph Pept 8830 pg/ml 05/22/24 22:24
Albumin 3.6 g/dl (3.5-5.0) 05/25/24 05:15
Physical Exam
-
Vital Signs:
Vital Signs
Temp Pulse Resp BP Pulse Ox
98.1 F 76 16 104/69 95
05/25/24 11:00 05/25/24 11:00 05/25/24 11:00 05/25/24 11:00 05/25/24 11:00
Cardiovascular:: Regular rate and rhythm
Respiratory:: Bilateral: CTA
Lung Excursion:: Normal
Abdomen:: Nontender and Soft
Bowel Sounds:: Normal
Extremity Edema:: None: Bilateral:
[2024-05-25 15:00] VITALS: BP 107/75
--- NOTE | 2024-05-25 16:30 | CM ---
Patient for discharge home today. IMM completed and signed form placed on chart. Patient to transport home. Patient for follow up with [facility]. CM will continue to follow for discharge planning needs.
Plan; home with [facility] to follow
--- NOTE | 2024-05-25 16:56 | W.DCSUMMARY ---
Discharge Summary
Discharge Data
Date of Admission: 05/23/24
Date of Discharge: 05/25/24
-
Pending Results: No
Discharge Plan
-
Patient Disposition: Home with Home Care
Discharge Diagnosis/Procedures: Acute on chronic heart failure with preserved Ejection fraction, Acute kidney injury, Persistent Atrial Fibrillation
Condition: Good
Diet: Low Sodium
Activity: As tolerated
Other Services: VN
Activity Restrictions/Additional Instructions:
Follow up with PCP in one week of hospital discharge
Instructions: *CBC Heart Failure Instructions
Referrals:
Vickie Ledesma CRNP [Specified Professional Personl] - 06/01/24 4:20 pm
Jw Danielle MD [Family Provider] -
Prescriptions:
New
metoprolol succinate 25 mg Tablet Extended Release 24 Hr
25 mg PO BID 30 Days Qty: 60 0RF
furosemide 40 mg Tablet
40 mg PO DAILY 30 Days Qty: 30 0RF
Continued
cholecalciferol (vitamin D3) [Vitamin D3] 1,000 UNIT capsule
2,000 unit PO DAILY
ezetimibe 10 MG tablet
10 mg PO DAILY
Eliquis 5 MG tablet
5 mg PO BID
coenzyme Q10 [Co Q-10] 200 MG capsule
200 mg PO DAILY
aspirin 81 MG tablet,delayed release (DR/EC)
81 mg PO DAILY
atorvastatin 40 mg Tablet
40 mg PO DAILY
multivitamin Tablet
1 tab PO DAILY
amiodarone 200 mg tablet
200 mg PO BID Qty: 180 3RF
Discontinued
spironolactone 25 MG tablet
12.5 mg PO DAILY
carvedilol 6.25 MG tablet
6.25 mg PO BID
Entresto 1 EACH tablet
1 tab PO BID
ibuprofen 200 MG tablet
200 mg PO DAILYPRN PRN (Reason: MILD PAIN)
furosemide 20 mg Tablet
20 mg PO DAILYPRN PRN (Reason: swelling)
Jardiance 10 mg Tablet
10 mg PO DAILY
Discharge Orders:
Discharge Patient (As Directed); Ordered 05/25/24
Ordered By: Fatou Alan
Discharge Date and Time
Print Language: ARMENIAN
--- NOTE | 2024-05-25 17:41 | W.DCSUMMARY ---
Addendum entered and electronically signed by Mable Courtney MD 05/25/24 20:59:
Read, reviewed, and agree. See same day progress note for additional details. Time spent coordinating care, DC planning, review of DC plan of care with resident, transition of care, review of records in EMR, med rec, consults, notes, d/w
consultants, nursing, family, and CM = 27 minutes
Original Note:
Discharge Summary
Discharge Data
Date of Admission: 05/23/24
Date of Discharge: 05/25/24
-
Pending Results: No
Hospital Course
Principal diagnosis at discharge
Acute on Chronic Heart failure with preserved ejection fraction.Acute Kidney Injury
Chronic discharge diagnosis
persistent atrial fibrillation (PVI 05/2019 and [id number]),prostate cancer (watchful waiting),coronary artery disease status post PCI.
Hospital course
He came to emergency department with Shortness of breath, worsened over time (Acute hypoxic respiratory failure) needed bipap in ER.He states that he has taken no Lasix in the past 10 days at all.
Patient began to experience SOB and GARCIA about 3 days ago. This has steadily progressed since that time. He appreciates significant abdominal distention / 'bloating' and decreased appetite. He does not note significant LE edema.
He became acutely more short of breath this evening, prompting him to present to the ED for further evaluation.Diuresis was done with IV LASIX and GDMT regimn was initiated. Daily weight, I's/O, and BMP with diuresis were done. Patient's Serum
Creatinine started to rise and Jardiance, Spironolactone and ARB put on hold until the LUCIO resolves. Currently he is able to walk around without needing oxygen.His Serum creatinine is 1.5. Patient advised low sodium diet and -Heart failure education
provided.
Patient is stable for discharge at this time
A visiting nurse will check on him at home
Renal Ultrasound (within normal limits)
Echocardiography Compared to prior from December 29, 2023, on [id number] comparison EF is now
moderate to severely reduced estimated at 30% previously estimated at 35%.
Discharge Plan
-
Patient Disposition: Home with Home Care
Discharge Diagnosis/Procedures: Acute on chronic heart failure with preserved Ejection fraction, Acute kidney injury, Persistent Atrial Fibrillation
Condition: Good
Diet: Low Sodium
Activity: As tolerated
Other Services: VN
Activity Restrictions/Additional Instructions:
Follow up with PCP in one week of hospital discharge
Instructions: *CBC Heart Failure Instructions
Referrals:
Vickie Ledesma CRNP [Specified Professional Personl] - 06/01/24 4:20 pm
Jw Danielle MD [Family Provider] -
Prescriptions:
New
furosemide 40 mg Tablet
40 mg PO DAILY 30 Days Qty: 30 0RF
metoprolol succinate 25 mg Tablet Extended Release 24 Hr
25 mg PO BID 30 Days Qty: 60 0RF
Continued
cholecalciferol (vitamin D3) [Vitamin D3] 1,000 UNIT capsule
2,000 unit PO DAILY
ezetimibe 10 MG tablet
10 mg PO DAILY
Eliquis 5 MG tablet
5 mg PO BID
coenzyme Q10 [Co Q-10] 200 MG capsule
200 mg PO DAILY
aspirin 81 MG tablet,delayed release (DR/EC)
81 mg PO DAILY
atorvastatin 40 mg Tablet
40 mg PO DAILY
multivitamin Tablet
1 tab PO DAILY
amiodarone 200 mg tablet
200 mg PO BID Qty: 180 3RF
Discontinued
spironolactone 25 MG tablet
12.5 mg PO DAILY
carvedilol 6.25 MG tablet
6.25 mg PO BID
Entresto 1 EACH tablet
1 tab PO BID
ibuprofen 200 MG tablet
200 mg PO DAILYPRN PRN (Reason: MILD PAIN)
furosemide 20 mg Tablet
20 mg PO DAILYPRN PRN (Reason: swelling)
Jardiance 10 mg Tablet
10 mg PO DAILY
Discharge Orders:
Discharge Patient (As Directed); Ordered 05/25/24
Ordered By: Fatou Alan
Discharge Date and Time
Discharge Date/Time: 05/25/24 17:15
Print Language: SINHALA
--- NOTE | 2024-05-26 10:31 | W.HF.CON ---
Heart Failure
- LV Function
Left ventricular function study result: LV Ejection fraction </= 35%
Ejection Fraction Percentage: 30
- ARNI
Patient already on ARNI: No
Heart Failure ARNI Contraindication: Acute Renal Failure, Hypotension
- ACEI/ARB
Patient already on ACEI/ARB: No
Heart Failure ACEI/ARB Contraindication: Acute Renal Failure, Hypotension
- Beta Chicho
Patient already on Evidence Based Beta Chicho: Yes
- Mineralocorticord Receptor Antagonist
Patient already on MRA: No
Heart Failure MRA Contraindication: Acute Renal Insufficiency, Hypotension
- SGLT-2 Inhibitor
Patient already on SGLT-2 Inhibitor: No
Heart Failure SGLT-2 Inhibitor Contraindication: Patient Refusal
- Afib Anticoagulation
Patient already on Anticoagulation for Afib: Yes
- NYHA CHF Classification
NYHA CHF Classification Level: Class III - Symptoms w/ min exertion, interferes w/ nml daily activity
- ACC/AHA Stage
ACC/AHA Stage: Stage C: Symptomatic Heart Failure
== END 2024-05-25 17:15 | disposition home health service (06) | DRG 291 ==
LOC: 3 WEST ACU 02:46
PROVIDERS: Nurse Practitioner Gerontology; ADMITTING PHYSICIAN Hospitalist; ATTENDING PHYSICIAN Internal Medicine; CONSULT PHYSICIAN Internal Medicine; EMERGENCY PHYSICIAN Student in an Organized Health Care Education/Training Program; FAMILY PHYSICIAN Internal Medicine; OTHER PHYSICIAN Internal Medicine Cardiovascular Disease
DX: I11.0 Hypertensive heart disease with heart failure (principal); I50.43 Acute on chronic combined systolic (congestive) and diastolic (congestive) heart failure; J96.01 Acute respiratory failure with hypoxia; I48.19 Other persistent atrial fibrillation; N17.9 Acute kidney failure, unspecified; E11.9 Type 2 diabetes mellitus without complications; I34.0 Nonrheumatic mitral (valve) insufficiency; I5A Non-ischemic myocardial injury (non-traumatic); I49.5 Sick sinus syndrome; E78.00 Pure hypercholesterolemia, unspecified; E87.5 Hyperkalemia; I25.10 Atherosclerotic heart disease of native coronary artery without angina pectoris; I25.5 Ischemic cardiomyopathy; R14.0 Abdominal distension (gaseous); R19.5 Other fecal abnormalities; Z79.01 Long term (current) use of anticoagulants; Z79.82 Long term (current) use of aspirin; Z79.84 Long term (current) use of oral hypoglycemic drugs; Z79.899 Other long term (current) drug therapy; Z85.46 Personal history of malignant neoplasm of prostate; Z87.891 Personal history of nicotine dependence; Z95.5 Presence of coronary angioplasty implant and graft; Z95.810 Presence of automatic (implantable) cardiac defibrillator
CPT/HCPCS: 71046; 76775; 80048; 80053; 80061; 81003; 82570; 83036; 83735; 83880; 84300; 84443; 84484; 85025; 85027; 85610; 85730; 93005; 93288; 93306; 94660; 96374; 96375; 97162; 99285

== ENCOUNTER 2024-05-30 11:28 | Inpatient (IN) | payer OTHER, SELFPAY ==
[2024-05-30] VITALS (10 sets, daily range): BP systolic 107–133; BP diastolic 78–101; BMI 26.7
--- NOTE | 2024-05-30 08:17 | ED.GENMED ---
History of Present Illness
General
Chief Complaint: Breathing Problem
Source: patient
Exam Limitations: none
Time Seen by Provider: 05/30/24 08:14
Nursing documentation reviewed up to this point in time: agreed with
History of Present Illness
History of Present Illness:
84 yo male present for SOB even at rest and cannot lay flat. Having trouble sleeping due to SOB. H/O A-fib on Eliquis, PVI ablation in February 2024 due to A-Fib. Hx of cardiomyopathy, CHF, CAD, defibrillator, HTN, HLD, pacemaker. He was admitted
05/23-05/24 with CHF after tapering off his Lasix and having stopped his Lasix and taken none for the previous 10 days. During that admission he was newly started on amiodarone and Jardiance.. At discharge Entresto, Carvedilol and Spironolactone were
DC'd. Metoprolol Succinate 25 mg BID and Lasix 40 mg BID were added and Amiodarone increased to BID. He states he is taking his meds as ordered.
He denies chest pain, n/v/d/c. Denies abdominal pain.
Past History
Past History
ED Past Medical History: Arrthythmia (Atrial fibrillation), CAD, CHF, HTN, Hypercholesterolemia and Other (Cardiomyopathy, circulation problems, back pain, neck pain, numbness right arm)
ED Past Surgical History: Appendectomy, Cardiac (Cardiac catheterization, 6 total stents, pacemaker) and Tonsilectomy
Social History
Tobacco: Former smoker
Alcohol: None
Drug: None
Living: with family
Employment: Retired
Review of Systems
Review of Systems
Allergies reviewed?: Yes
All Other Systems: ROS reviewed and negative except as documented in HPI and ROS
Constitutional: Reports fatigue; Denies fever
Respiratory: Reports trouble breathing; Denies cough
Cardiac: Denies chest pain, diaphoresis, palpitations or syncope
ABD/GI: Reports constipated and anorexia; Denies abdominal pain, nausea, vomiting or diarrhea
: Denies dysuria, frequency, difficulty voiding or urgency
Musculoskeletal: Reports no symptoms
Skin: Reports no symptoms
Neurological: Reports no symptoms
Phy Exam
Physical Exam
Physical Exam:
GENERAL: No acute distress. A&Ox3.
CONSTITUTIONAL: Afebrile.
EYES: PERRL, conjunctivae normal
ENMT: moist mucus membranes, Pharynx nl
RESPIRATORY: Regular respirations, nonlabored, lungs clear. Pulse ox
CARDIOVASCULAR: Regular rate and rhythm, no murmurs, no rubs. Mild JVD. HR on monitor 118 with paced beats
GI: Soft, nontender, normal BS
MUSCULOSKELETAL: Moves with ease. Well perfused.No edema
SKIN: Warm, dry, pink
PSYCH: Normal mood and affect. Well kept, interactive and appropriate
NEUROLOGIC: Awake, alert and oriented. No focal neurological deficits
Scores
Heart Failure Risk
Heart Failure Risk Score: Yes
History of Stroke or TIA: No
History of intubation for respiratory distress: No
Heart rate on ED arrival >/= 110: Yes
SaO2 <90% on arrival on room air: No
HR >/=110 during 3min walk test (or too ill to perform test): Yes
ECG has acute ischemic changes: No
Urea >/=12mmol/L (BUN 33.6mg/dL): Yes
Serum CO2>/=35mmol/L: No
Troponin I or T elevated to FL Level (0.4mg/dL): Yes
NT-proBNP >/=5,000ng/L (5,000pg/ml): Yes
HF Risk Score: 6
Admission Status: VERY HIGH RISK 55.3% Consider admission to hospital
Course
Orders/Labs/Results
Orders:
Orders
05/30/24 08:15
EKG [Electrocardiogram (*1)] Urgent
Reason for Study: Shortness of Breath
EKG- Treatment ONCE
05/30/24 08:17
IV Insert/Care/Rem.- Treatment PRN
CR Chest - 2 Views Urgent
Comment:
Reason For Exam: SOB
05/30/24 08:39
Basic Metabolic Panel Urgent
Complete Blood Count/With Diff Urgent
NT-proBNP Urgent
Troponin I Urgent
05/30/24 Lunch
Cholesterol Lowering
At Your Request: Full Participation
Does patient need a safe tray?: No
Fluid Restriction: 1440 mL/day (48 oz)
Cholesterol Lowering: Sodium, 2 Gram
05/30/24 10:16
EKG [Electrocardiogram (*1)] Urgent
Reason for Study: Shortness of Breath
EKG- Treatment ONCE
05/30/24 10:57
Furosemide [Lasix] 60 mg IV NOW STA
05/30/24 10:58
CT Chest W/o Iv Contrast Urgent
Comment:
Reason For Exam: SOB, on amiodarone
CARDIOLOGY CONSULT Routine
Consulting Provider: Eliot Levy
Was physician already notified: Yes
Reason for consult: CHF
05/30/24 10:59
NEPHROLOGY CONSULT Routine
Consulting Provider: Rosamaria Garcia
Was physician already notified: Yes
Reason for consult: LUCIO
05/30/24 11:08
Admit/Transfer Patient As Directed
Co-Sign Provider:
Level of Care: Inpatient admission
Assign to:: Telemetry
Physician / Group: Hospitalist
Diagnosis: CHF
Reason for Telemetry: Arrhythmia
Date to Stop Telemetry: 06/02/24
Time to Stop Telemetry: 11:00
Reason for Hospitalization: CHF
Expected length of stay greater than two midnights?: Yes
ELOS- Estimated Length of Stay in days: 2
I certify the patient meets the requirements for IP care: Yes
PRN Pain Medication Management As Directed
May give lesser potent ordered pain med per pt: Yes
preference::
Protocol:: Medication orders for pain may be administered in a
manner that supports deferring to patient preference
when the pt is:
- Requesting an ordered lesser potent pain medication.
Least to most potent pain medications are defined
as: acetaminophen < NSAID < tramadol < opioids
(morphine, oxycodone, hydromorphone).
- Requesting a lesser dose of the same medication IF
ORDERED.
- Requesting a less intrusive route of administration
if both routes are prescribed by the provider (PO <
IV).
05/30/24 11:12
Code Status As Directed
Resuscitation Status: Full Code
05/30/24 11:46
COVID-19 Antigen Stat
Source: Nasal Swab
05/30/24 12:50
Acetaminophen [Tylenol] 650 mg PO Q4HPRN PRN
Bisacodyl [Dulcolax] 10 mg RECTAL [id number] PRN
Docusate Sodium [Colace] 200 mg PO HSPRN PRN
Docusate W/Senna [Senokot-S] 1 tablet PO BIDPRN PRN
Ipratropium/Albuterol Sulfate [Duoneb] 3 ml INH R Q4HPRN PRN
Ondansetron Injectable [Zofran] 4 mg IV Q8HPRN PRN
Polyethylene Glycol Powder [Miralax] 17 grams PO DAILYPRN PRN
05/30/24 12:50
Activity As Directed
Activity Level: Out of Bed-Early Mobility
Vital Signs As Directed
Frequency: Per unit guidelines
Weight As Directed
Frequency: Daily
05/30/24 20:00
Amiodarone [Pacerone] 200 mg PO BID
Apixaban [Eliquis] 2.5 mg PO BID
Metoprolol Xl [Toprol Xl] 25 mg PO BID
05/31/24 06:00
Complete Blood Count/With Diff IN AM
Comprehensive Metabolic Panel IN AM
Magnesium IN AM
TSH IN AM
05/31/24 08:00
Aspirin Low Dose EC [Aspir Low (Enteric Coated)] 81 mg PO DAILY
Atorvastatin [Lipitor] 40 mg PO DAILY
Ezetimibe [Zetia] 10 mg PO DAILY
Multivitamin [Theragran] 1 tablet PO DAILY
06/02/24 11:00
DC Protocol for Telemetry ONCE
Abnormal Lab Results
05/30/24
08:39
RBC 4.20 L 10^6/uL
(4.70-6.10)
MCV 95.0 H fL
(80.0-94.0)
MCH 33.6 H pg
(27.0-31.0)
MPV 10.9 H fL
(7.4-10.4)
Absolute Monos (auto) 0.9 H 10^3/uL
(0.1-0.6)
Lymphocytes % 16.0 L %
(20.5-51.1)
Monocytes % 11.0 H %
(1.7-9.3)
BUN 85 H mg/dl
(9-20)
Creatinine 2.5 H mg/dL
(0.7-1.3)
Glucose 145 H mg/dl
(70-99)
Troponin I 0.052 H* ng/ml
05/30/24 08:39
05/30/24 08:39
Vital Signs
Initial and Last Documented VS:
Initial Vital Signs
Temp Pulse Resp Pulse Ox
97.6 F 119 18 91
05/30/24 08:07 05/30/24 08:07 05/30/24 08:07 05/30/24 08:07
Last Documented Vital Signs
Temp Pulse Resp BP Pulse Ox
97.6 F 119 16 122/87 96
05/30/24 15:00 05/30/24 15:00 05/30/24 15:00 05/30/24 15:00 05/30/24 15:00
MDM/Problems Addressed
Differential Diagnosis Includes:
CHF, FL
MDM/Problems Addressed:
84 yo male present for SOB even at rest and cannot lay flat. Having trouble sleeping due to SOB. H/O A-fib on Eliquis, PVI ablation in February 2024 due to A-Fib. Hx of cardiomyopathy, CHF, CAD, defibrillator, HTN, HLD, pacemaker. He was admitted
05/23-05/24 with CHF after tapering off his Lasix and having stopped his Lasix and taken none for the previous 10 days. During that admission he was newly started on amiodarone and Jardiance.. At discharge Entresto, Carvedilol and Spironolactone were
DC'd. Metoprolol Succinate 25 mg BID and Lasix 40 mg BID were added and Amiodarone increased to BID. He states he is taking his meds as ordered.
He denies chest pain, n/v/d/c. Denies abdominal pain.
9:15 AM:
CBC with no clinically significant abnormality
CMP: BUN/creat 85/2.5
Troponin 0.052, trending down from a week ago
Chest x-ray: Radiology report read:IMPRESSION:
1. Findings suggestive of mild pulmonary edema.
2. Mild bibasilar subsegmental atelectasis.
3. Mild cardiomegaly.
Plan: Admit: CHF, dehydration, acute renal insufficiency
Hospitalist notified of admission
*Critical Care Note
Total Time (30-74mins, 75-104mins- exclusive of procedures): Not Applicable
ED Attending Note
-
Portions of this chart may have been created with voice recognition software.� Occasional wrong word or��sound alike� substitutions may have occurred due to the inherent limitations of voice recognition software.
Discharge Plan
Departure
Patient Disposition: Admit
Date of Disposition: 05/30/24
Time of Disposition: 09:29
Presentation/result/management discussed w/ accepting MD/DO: Hospitalist
Condition: Fair
Discharge Problem:
CHF (congestive heart failure), Acute renal insufficiency, Acute dehydration
Interventions
Interventions:
*Risk Screen - Suicide Last Done: 05/30/24 08:07
*General Assessment Last Done: 05/30/24 08:07
*Neglect/Abuse Screening Last Done: 05/30/24 08:07
ED- Fall Risk Assessment Last Done: 05/30/24 12:44
*ED COVID-19 Vaccine History Last Done: 05/30/24 12:44
*Nursing Disposition Last Done: 05/30/24 12:44
ED- Cardiac Assessment Last Done: 05/30/24 08:59
ED- Pulmonary Assessment Last Done: 05/30/24 08:59
Discharge Date and Time
Discharge Date/Time: 05/30/24 12:45
[2024-05-30 08:48] LABS: % Basophils 0.7 % (0-2); % Eosinophils 0.6 % (0-6); % Immature Granulocytes 0.2 % (0-0.5); % Neutrophils 71.5 % (42.2-75.2); Absolute Basophils 0.1 10^3/uL (0-0.2); Absolute Eosinophils 0.1 10^3/uL (0-0.7); Absolute Lymphocytes 1.4 10^3/uL (1.2-3.4); Absolute Monocytes 0.9 10^3/uL (0.1-0.6); Hematocrit 39.9 % (39.0-52.0); Hemoglobin 14.1 g/dL (13.0-18.0); Mean Corp Hgb Conc. 35.3 g/dL (33.0-37.0); Mean Corpuscular Hgb 33.6 pg (27.0-31.0); Mean Platelet Volume 10.9 fL (7.4-10.4); Nucleated Red Blood Cells % 0 % (-); Platelet Count 212 10^3/uL (130-400); Red Cell Dist. Width 14.2 % (11.5-14.5); White Blood Cell Count 8.5 10^3/uL (4.8-10.8)
[2024-05-30 09:07] LABS: Blood Urea Nitrogen 85 mg/dl (9-20); Calcium 9.3 mg/dl (8.4-10.2); Carbon Dioxide 22 mmol/L (22-30); Chloride 98 mmol/L (98-107); Glucose 145 mg/dl (70-99); Potassium 4.8 mmol/L (3.5-5.1); Sodium 138 mmol/L (135-145); eGFR 25.02
[2024-05-30 09:18] LABS: NT-proBNP 24100 pg/ml; Troponin I 0.052 ng/ml
--- NOTE | 2024-05-30 11:12 | CON.CAR ---
Addendum entered and electronically signed by Eliot Levy MD 05/30/24 16:31:
I saw and examined the patient.
The MOLD PREPARER's note was reviewed and I agree with the note.
Comment: 84-year-old male (known to Dr. Levy, his primary leather goods assembler), with coronary artery disease status post PCI (2014), persistent atrial fibrillation (PVI 05/2019, SSS s/p MDT PPM, ICM with ICD (previously 20%), and prostate cancer
(watchful waiting), who presented to the emergency department the chief complaint of shortness of breath.
His SOB etiology is unclear, and he does not have obvious volume overload. Discussed a RHC with him and he is agreeable.
- RHC tomorrow
- Irfan to see about AF/A flutter
NPO after midnight
Original Note:
Consultation
Consultation Request
Date/Time Consultation Requested: 05/30/2024 10:50
Date/Time Consultation Performed: 05/30/2024 11:00
Requesting Provider: Dr. Nieto
Performing Provider: BERKLEY Hansen for Dr. Levy
Reason for Consultation: Acute on chronic heart failure
Medical History
-
Chief Complaint: Shortness of breath
History of Present Illness:
Vaibhav Patel is an 84-year-old male (known to Dr. Levy, his primary leather goods assembler), with coronary artery disease status post PCI (2014), persistent atrial fibrillation (PVI 05/2019, TRACEY s/p T PPM, ICM with ICD (previously 20%), and
prostate cancer (watchful waiting), who presented to the emergency department the chief complaint of shortness of breath. He states that his shortness of breath started the day after discharge. He endorses medication adherence. He was found to
have an LUCIO on admission. He was taking his discharge medications as directed and made all necessary changes. He had no weight gain at home. He reports despite taking furosemide as directed he has had little urine output. He endorses associated
nausea and poor oral intake. Notable labs include BUN of 85 (up from 56 at discharge), creatinine of 2.5 (up from 1.5 at discharge), and proBNP 24,100. His weight is unchanged from his prior admission.
Past Medical History
Past Medical History: Arrhythmias (Persistent atrial fibrillation), CAD, CHF (ICM, HFrEF), HTN and Hypercholesterolemia
Past Surgical History: Appendectomy
Social History
Tobacco: Former Smoker
Alcohol: Daily (2 glasses of wine every evening)
Drug: None
Personal:
Living: With Family
Employment: Retired
Family History
Family History: Reviewed & Not Pertinent
Allergies / Home Medications
Allergy/AdvReac Type Severity Reaction Status Date / Time
No Known Allergies Allergy Verified 05/30/24 08:07
�Medication �Instructions �Recorded �Confirmed �Type
cholecalciferol (vitamin D3) 25 2,000 unit PO DAILY Supplement 02/16/15 05/30/24 History
mcg (1,000 unit) capsule (Vitamin
D3)
ezetimibe 10 mg tablet 10 mg PO DAILY High cholesterol 02/16/15 05/30/24 History
apixaban 5 mg tablet (Eliquis) 5 mg PO BID Blood clot 08/25/18 05/30/24 History
prevention/tx
aspirin 81 mg tablet,delayed 81 mg PO DAILY Blood clot 06/27/19 05/30/24 History
release prevention/tx
coenzyme Q10 200 mg capsule (Co 200 mg PO DAILY Supplement 06/27/19 05/30/24 History
Q-10)
atorvastatin 40 mg tablet 40 mg PO DAILY High Cholesterol 03/12/22 05/30/24 History
multivitamin 1 tab PO DAILY Supplement 03/11/24 05/30/24 History
amiodarone 200 mg tablet 200 mg PO BID Heart 05/25/24 05/30/24 Rx
disease/condition #180 tabs
furosemide 40 mg tablet 40 mg PO DAILY Heart Failure 30 05/25/24 05/30/24 Rx
days #30 tabs
metoprolol succinate 25 mg 25 mg PO BID Heart 05/25/24 05/30/24 Rx
tablet,extended release 24 hr disease/condition 30 days #60 tabs
docusate sodium 100 mg capsule 200 mg PO HSPRN PRN constipation 05/30/24 05/30/24 History
(Colace)
Review of Systems
-
History Source: Patient
All other systems: Negative unless noted
Constitutional: Fatigue
EENT: No Symptoms
Respiratory: Trouble Breathing
Cardiac: No Symptoms
Abdomen/GI: Nausea
: No Symptoms
Musculoskeletal: No Symptoms
Skin: No Symptoms
Neurological: No Symptoms
Endocrine: No Symptoms
Hematologic/Lymphatic: No Symptoms
Physical Exam
Vital Signs
Temp Pulse Resp BP Pulse Ox
97.6 F 80 24 115/100 97
05/30/24 08:07 05/30/24 10:15 05/30/24 10:15 05/30/24 10:00 05/30/24 10:15
Lab Results
05/30/24 08:39
05/30/24 08:39
Troponin I 0.052 ng/ml H* 05/30/24 08:39
Omd-P-Zmnekpxghoy Pept 26019 pg/ml 05/30/24 08:39
Physical Exam
General: Well Developed, Well Nourished, No Apparent Distress and Comfortable
HEENT: Normocephalic, Anicteric and Moist Mucous Membranes
Respiratory: Crackles and Non Labored Respirations
Cardiac: S1/S2 and Regular Rhythm (tachcardia)
Breast: Deferred by me
GI: Soft, Non Tender, Non Distended and Normal Bowel Sounds
Rectal: Deferred by Provider
Genito-urinary: No Costovertebral Tender
Musculoskeletal: No Clubbing, No Cyanosis and No Edema
Skin: Warm and Dry
Neuro: AO x 3
Hematologic/Lymphatic: No Lymphadenopathy
Psych: Calm
Impression / Plan
-
BACKGROUND: 84M CAD s/p PCI (2014) persistent atrial fibrillation (PVI 05/2019, SSS s/p MDT PPM, ICM with ICD (previously 20%), and prostate cancer (watchful waiting), who presented to the emergency department the chief complaint of shortness of
breath.
PEARL RESTORER: Dr. Levy
ICM/HFrEF (EF 30%), acute on chronic
-He reports orthopnea and shortness of breath
-Lowest documented LVEF 20% in 2019
-Diuresis per nephrology given LUCIO
-GDMT as tolerated
-Beta-efrain: Metoprolol succinate 25 mg twice daily (this was transitioned from Coreg during prior hospitalization due to low BP)
-SGLT2: Jardiance 10 mg daily stopped during prior hospitalization
-ACEI/ARB: Sacubitril/valsartan 49-51 mg BID stopped during prior hospitalization
-MRA: Spironolactone 25mg stopped during prior hospitalization
-ICD: Medtronic
-Continue hold nephrotoxic medications
-Trend daily weight, I/O, and BMP with diuresis
-HF education
Abnormal troponin, nonischemic myocardial injury in the setting of acute heart failure and LUCIO
-Troponin 0.052, trend to peak
-No CP
Persistent atrial fibrillation
-Continue amiodarone
-Ablation 03/21/2024
-Rates are elevated, on amiodarone, possible sinus tachycardia, will interrogate device
-Oral Anticoagulation: Apixaban 2.5 mg twice daily (age 84, creatinine >1.5)
-[id number]: score at least 5 (Heart failure, HTN, age 75 or more, Vascular disease)
CAD
-Stable without angina
-2014 stress test ordered for shortness of breath -> JOMAR RCA & LCx
LUCIO on CKD
-Nephrology following; nephrotoxic medications being held.
Medtronic ICD, interrogate
Prediabetes, HgbA1c 5.7%
Former smoker, continued cessation recommended
Prostate cancer, watchful waiting
DATA:
Transthoracic echocardiogram, 05/23/2024:
TDS, Definity should be used for subsequent studies.
Mildly dilated LV with moderate to severely reduced systolic function.
Estimated EF of 30%, however, poor endocardial definition.
Global diffuse hypokinesis. Stage II diastolic dysfunction suggestive of
abnormal relaxation and increased filling pressures.
Dilated RV with reduced systolic function.
Mild to moderate mitral regurgitation.
Estimated pulmonary artery pressure of 29 mmHg, assuming a right atrial
pressure of 3 mmHg.
Compared to prior from December 29, 2023, on [id number] comparison EF is now
moderate to severely reduced estimated at 30% previously estimated at 35%.
Data Reviewed
-
EKG: Report Reviewed by me (Atrial sensed ventricularly paced rhythm, rate 118)
Radiology: Report Reviewed by me (CXR: Mild pulmonary edema.)
Medical Tests (Nuc Med, Echo etc): Report Reviewed by me (Prior echocardiogram as above)
Labs: Labs Reviewed by me
Old Records: Reviewed
--- NOTE | 2024-05-30 11:16 | HPS.HSE ---
Addendum entered and electronically signed by Adams Sepulveda MD 05/30/24 13:15:
#Troponin elevation
without chest pain
less then on previous admission
follow trend, no concern for ACS at this time as possibly 2/2 LUCIO
Original Note:
Family Physician
-
Family Physician: Jw Danielle
Chief Complaint
-
SOB
History of Present Illness
84yo M with HFrEF, A.fib s/p ablation, CKD stage 3a, CAD, prostate CA, recent admission for CHF exacerbation complicated by hypotension, discharged on Lasix 40mg and stopped Entresto and Aldactone on last discharge, came with worsening nocturnal SOB
when lying flat and generally not feeling well. Her was started Amiodarone 2 months ago and s per patient did not do well on recent PFT. Also noticed GI upset after initiation pof amiodarone. No weight gain at home reported, compliant with Lasix and
fluid restriction to 48Oz a day. Reported decreased amount of urine over past couple of days.
Medical History
Past Medical History
Past Medical History: Reports Other
Additional Past Medical History:
See HPI
Past Surgical History: Reports None
Social History
Tobacco: Former Smoker
Alcohol: Daily
Drug: None
Family History
Family History: Not pertinent
Allergies / Home Medications
Allergies reflects when Allergies were last updated in [facility].
Home Medications with original date entered in [facility]
Allergy/Medication List:
Allergies
Allergy/AdvReac Type Severity Reaction Status Date / Time
No Known Allergies Allergy Verified 05/30/24 08:07
Home Medications
cholecalciferol (vitamin D3) 25 mcg (1,000 unit) capsule (Vitamin D3) 2,000 unit PO DAILY Supplement 02/16/15
ezetimibe 10 mg tablet 10 mg PO DAILY High cholesterol 02/16/15
apixaban 5 mg tablet (Eliquis) 5 mg PO BID Blood clot prevention/tx 08/25/18
aspirin 81 mg tablet,delayed release 81 mg PO DAILY Blood clot prevention/tx 06/27/19
coenzyme Q10 200 mg capsule (Co Q-10) 200 mg PO DAILY Supplement 06/27/19
atorvastatin 40 mg tablet 40 mg PO DAILY High Cholesterol 03/12/22
multivitamin 1 tab PO DAILY Supplement 03/11/24
amiodarone 200 mg tablet 200 mg PO BID Heart disease/condition #180 tabs 05/25/24
furosemide 40 mg tablet 40 mg PO DAILY Heart Failure 30 days #30 tabs 05/25/24
metoprolol succinate 25 mg tablet,extended release 24 hr 25 mg PO BID Heart disease/condition 30 days #60 tabs 05/25/24
docusate sodium 100 mg capsule (Colace) 200 mg PO HSPRN PRN constipation 05/30/24
Review of Systems
-
History Source: Patient
A 12 point ROS was completed and negative except as noted: Yes
Respiratory: Reports Trouble Breathing
Physical Exam
Vital Signs
Vital Signs
Temp Pulse Resp BP Pulse Ox
97.6 F 80 24 115/100 97
05/30/24 08:07 05/30/24 10:15 05/30/24 10:15 05/30/24 10:00 05/30/24 10:15
Physical Exam
General: No Apparent Distress
HEENT: NormoCephalic, Moist mucous membranes and Atraumatic
Respiratory: Clear; No Wheezes, Rales or Rhonchi
Cardiac: S1/S2 and Regular Rhythm
GI: Soft, Non Tender and Non Distended
Musculoskeletal: No Clubbing, No Cyanosis and No Edema
Skin: Warm
Neuro: Awake, Alert, Oriented and AO x 3
Psych: Calm
Laboratory Results
-
05/30/24 08:39
05/30/24 08:39
Laboratory Results
Total Bilirubin Cancelled 05/30/24 08:39
AST Cancelled 05/30/24 08:39
ALT Cancelled 05/30/24 08:39
Alkaline Phosphatase Cancelled 05/30/24 08:39
Troponin I 0.052 ng/ml H* 05/30/24 08:39
Data Reviewed
-
Diagnostic Radiology: Report Reviewed by me
Lab Data: Labs Reviewed by me
Impression/Plan
-
A/P:
#Orthopnea
#Acute on chronic HFrEF exacerbation s/p ICD
#Permanent Afib on ELiquis s/p PPM
#Atrial senced ventricular paced rhythm with episodesm of tachycadia
#LUCIO, cannot exclude cardiorenal syndrome
proBNP significantly elevated and mild pulmonary edema on XR - will give onse dose of Lasix, pending further eval by Card and Neprhology
Cardiology for PPM mgmt if needed
Recent Echo with EF 30%
Cont daily weight and follow electrolytes
Follow BMP - Cr increased to 2.5 from 1.5 6 days ago
Telemetry
Low sodium diet and fluid restriction
CT chest without contrast
Check TSH
With worsened kidney function - Cr since last admission not <1.5 - decrease Eliquis to 2.5mg (patient >80yo)
Duoneb
#HLD
#CAD
#GERD
#Chronic constipation
#Prostate CA
cont home meds and follow up with already established specialists
#Daily alcohol use without abuse
Counselled to stop
DVT ppx on Eliquis
Full code
I have spent at least 79min reviewing chart, test results, communication with consultants and direct patient care
[2024-05-30] MEDS: LASIX 60 MG IV (11:47)
--- NOTE | 2024-05-30 12:32 | W.CON.NEPH ---
Consultation
-
Date/Time Consultation Requested: 05/30/24 1059
Date/Time Consultation Performed: 05/30/24 1215
Requesting Provider: Adams Mcnamara
Performing Provider: Rosamaria Faustin
Reason for Consultation: LUCIO
Medical History
-
Chief Complaint: SOB
History of Present Illness:
Patient is an 84y M with PMH significant for ASCVD, ischemic cardiomyopathy and CHFrEF(35%) LASIX, BB, HLD on Ezetemibe, Afib on Amio s/p Ac with Sherry who presents to ED complaining of SOB today. Patient underwent PVI ablation in February 2024 due
to A-Fib. At that time, he was newly started on amiodarone and Jardiance. He was taking Lasix 20mg BID at that time and has since tapered his dosing significantly due to low Bps to prn basis only. He was admitted last week for CHF flare and LUCIO.
DUring this admit his ENtresto, Spironolactone were discontinued. He was diuresed and resume lasix at d/c. He reports compliance with meds and diet. HIs cr was at 1.1 in February and peaked at 1.8 last admit and at d/c was at 1.5. NOw cr increased to
2.5. Hence nephrology consulted. He endorses PND and orthopnea but no wt gain. He has decreased appetite and decreased UOP in last 2-3days. No n/v or constipation. no fever or cough. He received 60mg lasix IV.
Past Medical History
ASCVD
Ischemic Cardiomyopathy
Chronic HFrEF (30% - May 2024)
mild to mod MR
Persistent Atrial Fibrillation
Hypertension
Prostate Cancer
Past Surgical History: Other (PTCA with Stents (x 12) PPM / AICD Placement PVI Ablation x 2 Appendectomy)
Social History
Tobacco: Former Smoker
Alcohol: Daily (7ounces/daily-wine)
Personal:
Living: With Family
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
Family History
no ckd
Family History: Not Pertinent
Allergies / Home Medications
Allergy/AdvReac Type Severity Reaction Status Date / Time
No Known Allergies Allergy Verified 05/30/24 08:07
�Medication �Instructions �Recorded �Confirmed �Type
cholecalciferol (vitamin D3) 25 2,000 unit PO DAILY Supplement 02/16/15 05/30/24 History
mcg (1,000 unit) capsule (Vitamin
D3)
ezetimibe 10 mg tablet 10 mg PO DAILY High cholesterol 02/16/15 05/30/24 History
apixaban 5 mg tablet (Eliquis) 5 mg PO BID Blood clot 08/25/18 05/30/24 History
prevention/tx
aspirin 81 mg tablet,delayed 81 mg PO DAILY Blood clot 06/27/19 05/30/24 History
release prevention/tx
coenzyme Q10 200 mg capsule (Co 200 mg PO DAILY Supplement 06/27/19 05/30/24 History
Q-10)
atorvastatin 40 mg tablet 40 mg PO DAILY High Cholesterol 03/12/22 05/30/24 History
multivitamin 1 tab PO DAILY Supplement 03/11/24 05/30/24 History
amiodarone 200 mg tablet 200 mg PO BID Heart 05/25/24 05/30/24 Rx
disease/condition #180 tabs
furosemide 40 mg tablet 40 mg PO DAILY Heart Failure 30 05/25/24 05/30/24 Rx
days #30 tabs
metoprolol succinate 25 mg 25 mg PO BID Heart 05/25/24 05/30/24 Rx
tablet,extended release 24 hr disease/condition 30 days #60 tabs
docusate sodium 100 mg capsule 200 mg PO HSPRN PRN constipation 05/30/24 05/30/24 History
(Colace)
Review of Systems
-
All complete 12 point ROS have been inquired and found negative other than stated in HPI
All other systems: Negative unless noted
Physical Exam
Vital Signs
Vital Signs
Temp Pulse Resp BP Pulse Ox
97.6 F 95 23 114/84 97
05/30/24 08:07 05/30/24 11:47 05/30/24 11:15 05/30/24 11:47 05/30/24 11:15
Lab Results
WBC 8.5 10^3/uL (4.8-10.8) 05/30/24 08:39
RBC 4.20 10^6/uL (4.70-6.10) L 05/30/24 08:39
Hgb 14.1 g/dL (13.0-18.0) 05/30/24 08:39
Hct 39.9 % (39.0-52.0) 05/30/24 08:39
Plt Count 212 10^3/uL (130-400) D 05/30/24 08:39
Sodium 138 mmol/L (135-145) 05/30/24 08:39
Potassium 4.8 mmol/L (3.5-5.1) 05/30/24 08:39
Chloride 98 mmol/L (98-107) 05/30/24 08:39
Carbon Dioxide 22 mmol/L (22-30) 05/30/24 08:39
BUN 85 mg/dl (9-20) H 05/30/24 08:39
Creatinine 2.5 mg/dL (0.7-1.3) H 05/30/24 08:39
eGFR 25.02 05/30/24 08:39
Glucose 145 mg/dl (70-99) H 05/30/24 08:39
Calcium 9.3 mg/dl (8.4-10.2) 05/30/24 08:39
Ciw-H-Issxdztxfkg Pept 31788 pg/ml 05/30/24 08:39
Albumin Cancelled 05/30/24 08:39
CXR;
FINDINGS:
Mild cardiomegaly is identified. Coronary stent material projects over the heart. Left subclavian AICD/pacemaker is unchanged in position.
There is mild prominence of the interstitium, and cephalization of the pulmonary vasculature.
Minimal linear opacity is seen in each lung base, most suggestive of subsegmental atelectasis. No definite lobar airspace consolidation, pleural effusion, or pneumothorax.
Mild degenerative change is seen within the thoracic spine.
No radiographic evidence of free intraperitoneal air.
IMPRESSION:
1. Findings suggestive of mild pulmonary edema.
2. Mild bibasilar subsegmental atelectasis.
3. Mild cardiomegaly.
CT chest with out contrast:
IMPRESSION:
1. Trace right pleural fluid. Minimal right basilar subsegmental atelectasis.
2. Mild centrilobular emphysema. No evidence of interstitial fibrosis.
3. Moderate coronary arterial calcification. Please correlate with symptoms of and risk factors for coronary artery disease, with further workup as clinically appropriate.
4. Small lung nodules bilaterally, unchanged compared to prior CT and likely benign. No routine further follow-up is required
Physical Exam
General: Awake, Alert, Oriented, AOx3, No Distress and Nontoxic
HEENT: Conjunctivae Clear, Neck Supple and Other (JVD noted to the Jaw)
Respiratory: Other (decreased BS bilat)
Cardiac: S1/S2, Regular Rate/Rhythm and Murmur
Breast: Deferred by me
Abdomen: Soft, Nontender and Nondistended
Musculoskeletal: No Cyanosis and No Edema
Skin: No Rash
Neuro: Nonfocal/Grossly Intact
Psych: Mood/afflect pleasant, Insight/judgement good and Appropriate
Data Reviewed
-
Radiology: Report Reviewed by me and Discussed with Patient
Labs: Labs Reviewed by me and Discussed with Patient
Assessment/Plan
-
IMP:
Acute hypoxic respiratory failure, in the setting of acute HFrEF
ICM
HFrEF(30%), acute on chronic
LUCIO-cr 1.1 in 02/2024
ICD: Medtronic
Abnormal troponin
Persistent atrial fibrillation
CAD
Mild to moderate MR
Daily EtOH consumption
Prostate cancer
PLan:
Lucio-mostly cardiorenal, had bland UA and non acure renal US last week
check U PCR and Fena, follow bladder scan
cont lasix IV 60mg IV BID
check labd and wts daily
BP are stable
if cr remains high may benefit from RHC
d/w pt
[2024-05-30 12:40] LABS: COVID-19 Antigen Negative (Negative)
--- NOTE | 2024-05-30 13:00 | PTCARENOTE ---
Patient admitted to [facility]. Here with CHF exacerbation, LUCIO with concern for cardiorenal syndrome.
[2024-05-30] MEDS: TUMS CHEWABLE TABLET 200 MG PO (14:08)
[2024-05-30 15:19] LABS: Troponin I 0.051 ng/ml
[2024-05-30] MEDS: LOPRESSOR 25 MG PO (16:42)
[2024-05-30] MEDS: LASIX 40 MG IV (16:42)
[2024-05-30] MEDS: TOPROL XL PO (20:00)
[2024-05-30 20:18] LABS: Troponin I 0.053 ng/ml
[2024-05-30] MEDS: PACERONE 200 MG PO (21:15)
[2024-05-30 22:47] LABS: Protein/creatinine Ratio 0.2; Urine Protein 12 mg/dl; Urine Sodium 72 mmol/L (30-90)
[2024-05-31] VITALS (15 sets, daily range): BP systolic 98–127; BP diastolic 66–97
[2024-05-31] MEDS: TOPROL XL 25 MG PO ×3 (00:03→19:23)
--- NOTE | 2024-05-31 05:40 | PTCARENOTE ---
Addendum entered by Jewel Rubio RN 05/31/24 05:41:
Pt continued to be monitored, pt HR-99-118, pt asymptomatic,resting comfortably.STAFFING DIRECTOR aware of pt last troponin 0.053, am troponin ordered for this morning. Pt denies of any chest pain or discomfort. Uses prn oxygen for pt comfort only.No other
complaints noted.Pt voiding without difficulty In urinal. No new orders at this time.Plan of care continued.
Original Note:
Pt aaox3 able to make his needs known. Denies of any pain or discomfort. Pt was provided with dose of metoprolol 25mg ER over night, for pt HR-99-120.STAFFING DIRECTOR aware of it. plan of care continued.
[2024-05-31 08:15] LABS: % Basophils 0.5 % (0-2); % Eosinophils 0.9 % (0-6); % Immature Granulocytes 0.3 % (0-0.5); % Neutrophils 72.3 % (42.2-75.2); Absolute Eosinophils 0.1 10^3/uL (0-0.7); Absolute Monocytes 0.7 10^3/uL (0.1-0.6); Absolute Neutrophils 4.8 10^3/uL (1.4-6.5); Hematocrit 37.5 % (39.0-52.0); Mean Corp Hgb Conc. 34.7 g/dL (33.0-37.0); Mean Corpuscular Hgb 33.2 pg (27.0-31.0); Mean Corpuscular Volume 95.9 fL (80.0-94.0); Mean Platelet Volume 11.5 fL (7.4-10.4); Nucleated Red Blood Cells % 0 % (-); Platelet Count 205 10^3/uL (130-400); Red Blood Cell Count 3.91 10^6/uL (4.70-6.10); Red Cell Dist. Width 14.2 % (11.5-14.5); White Blood Cell Count 6.7 10^3/uL (4.8-10.8)
--- NOTE | 2024-05-31 08:30 | VNURNOTE ---
Chart reviewed. Patient is current with [facility] nursing. Will continue to follow hospital course and DC plans.
[2024-05-31 08:33] LABS: Troponin I 0.061 ng/ml
[2024-05-31] MEDS: ASPIR LOW (ENTERIC COATED) 81 MG PO (08:33)
[2024-05-31] MEDS: LASIX 40 MG IV (08:33)
[2024-05-31] MEDS: LIPITOR 40 MG PO (08:33)
[2024-05-31] MEDS: THERAGRAN 1 TABLET PO (08:33)
[2024-05-31] MEDS: PACERONE 200 MG PO ×2 (08:33→19:23)
[2024-05-31] MEDS: ZETIA 10 MG PO (08:53)
[2024-05-31 08:55] LABS: ALT (SGPT) 184 U/L (0-50); AST (SGOT) 140 U/L (17-59); Albumin 3.9 g/dl (3.5-5.0); Alkaline Phosphatase 76 U/L (38-126); Blood Urea Nitrogen 91 mg/dl (9-20); Calcium 9.4 mg/dl (8.4-10.2); Carbon Dioxide 25 mmol/L (22-30); Chloride 98 mmol/L (98-107); Estimated Creatinine Clearance 25 ml/min; Glucose 87 mg/dl (70-99); Magnesium 2.3 mg/dl (1.6-2.3); Potassium 4.7 mmol/L (3.5-5.1); Sodium 138 mmol/L (135-145); Total Bilirubin 1.5 mg/dl (0.2-1.3); Total Protein 6.2 g/dl (6.3-8.2); eGFR 25.02
[2024-05-31 09:17] LABS: TSH 1.96 uIU/ml (0.47-4.68)
--- NOTE | 2024-05-31 10:47 | W.PN.HOSP.TC ---
Today's Communication/Plan
-
cont diuresis
labs in AM
RHC
Assessment / Plan
Assessment / Plan
4yo M with HFrEF, A.fib s/p ablation, CKD stage 3a, CAD, prostate CA, recent admission for CHF exacerbation complicated by hypotension, discharged on Lasix 40mg and stopped Entresto and Aldactone on last discharge, came with worsening nocturnal SOB,
managed for CHF exacerbation with cardiorenal syndrome
A/P:
#Orthopnea
#Acute on chronic HFrEF exacerbation s/p ICD
#Permanent Afib on ELiquis s/p PPM
#Atrial senced ventricular paced rhythm with episodes of tachycadia
#LUCIO, cannot exclude cardiorenal syndrome
proBNP significantly elevated and mild pulmonary edema on XR - will give onse dose of Lasix, pending further eval by Card and Neprhology. Plan to diurese and possible RHC
Recent Echo with EF 30%
Cont daily weight and follow electrolytes
Follow BMP - Cr increased to 2.5 from 1.5 6 days ago
Telemetry
Low sodium diet and fluid restriction
TSH WNL
With worsened kidney function - Cr since last admission not <1.5 - decrease Eliquis to 2.5mg (patient >80yo)
Duoneb
#HLD
#CAD
#GERD
#Chronic constipation
#Prostate CA
cont home meds and follow up with already established specialists
#Daily alcohol use without abuse
Counselled to stop
#b/l pulmonary subcentimeter nodules
stable since 2019
DVT ppx on Eliquis
Full code
I have spent at least 59min reviewing chart, test results, communication with consultants and direct patient care
Anticipated Discharge: > 48 hours
Subjective/Interval History
-
Date of Service: May 31, 2024
Objective Data
-
Labs:
Laboratory Results
05/31/24
06:34
WBC 6.7
Hgb 13.0
Hct 37.5 L
Plt Count 205
Sodium 138
Potassium 4.7
Chloride 98
Carbon Dioxide 25
BUN 91 H
Creatinine 2.5 H
Glucose 87
Calcium 9.4
Total Bilirubin 1.5 H
AST 140 H
ALT 184 H
Alkaline Phosphatase 76
Vital Signs:
Vital Signs
Temp Pulse Resp BP Pulse Ox
97.6 F 110 18 108/82 98
05/31/24 07:53 05/31/24 07:53 05/31/24 07:53 05/31/24 07:53 05/31/24 07:53
I&O
05/30/24 05/31/24 06/01/24
06:59 06:59 06:59
Intake Total 600 / 600
Output Total 300 / 300
Balance 300 / 300
Review of Systems
-
History Source: Patient
All other systems: Reviewed and negative
Physical Exam
-
General: No Apparent Distress
HEENT: Normocephalic
GI: Soft
Skin: Warm; Negative Dry
Neuro: Alert, Oriented and AO x 3
Psych: Calm
--- NOTE | 2024-05-31 14:43 | W.PN.NEPH.PH ---
Today's Communication / Plan
-
cont lasix
cards to eval for RHC
Assessment/Plan
-
IMP:
Acute hypoxic respiratory failure, in the setting of acute HFrEF
ICM
HFrEF(30%), acute on chronic
JEREMIAS-cr 1.1 in 02/2024
ICD: Medtronic
Abnormal troponin
Persistent atrial fibrillation
CAD
Mild to moderate MR
Daily EtOH consumption
Prostate cancer
PLan:
Jeremias-mostly cardiorenal, had bland UA and non acure renal US last week
Fena not low with lasix, follow bladder scan , pVR 150cc
cont lasix IV 40mg IV BID
check labs and wts daily
BP are stable
may benefit from RHC
d/w pt
-
-
Date of Service: May 31, 2024
CC / HPI / ROS
-
Chief Complaint:
JEREMIAS
History of Present Illness:
cr no change at 2.5
wt not done
BP stable
na normal
Review of Systems:
no fever
no cp
sob improving , able to lay on bed now
Labs
-
Labs:
WBC 6.7 10^3/uL (4.8-10.8) 05/31/24 06:34
RBC 3.91 10^6/uL (4.70-6.10) L 05/31/24 06:34
Hgb 13.0 g/dL (13.0-18.0) 05/31/24 06:34
Hct 37.5 % (39.0-52.0) L 05/31/24 06:34
Plt Count 205 10^3/uL (130-400) 05/31/24 06:34
Sodium 138 mmol/L (135-145) 05/31/24 06:34
Potassium 4.7 mmol/L (3.5-5.1) 05/31/24 06:34
Chloride 98 mmol/L (98-107) 05/31/24 06:34
Carbon Dioxide 25 mmol/L (22-30) 05/31/24 06:34
BUN 91 mg/dl (9-20) H 05/31/24 06:34
Creatinine 2.5 mg/dL (0.7-1.3) H 05/31/24 06:34
eGFR 25.02 05/31/24 06:34
Glucose 87 mg/dl (70-99) 05/31/24 06:34
Calcium 9.4 mg/dl (8.4-10.2) 05/31/24 06:34
Fwz-Z-Toemuydwurw Pept 91286 pg/ml 05/30/24 08:39
Albumin 3.9 g/dl (3.5-5.0) 05/31/24 06:34
Physical Exam
-
Vital Signs:
Vital Signs
Temp Pulse Resp BP Pulse Ox
98.4 F 97 18 102/73 98
05/31/24 12:06 05/31/24 12:06 05/31/24 12:06 05/31/24 12:06 05/31/24 14:21
Cardiovascular:: Regular rate and rhythm
Lung Excursion:: Normal (decreased BS)
Abdomen:: Nontender and Soft
Extremity Edema:: None: Bilateral:
Elizabeth Catheter: No
--- NOTE | 2024-05-31 15:07 | ITS.CL.CATH ---
Comparator Operator - Catheterization
Cardiac Catheterization
Procedure Report:
RIGHT HEART CATHETERIZATION
Date of Procedure: 05/31/2024
Referring: Eliot Levy MD
�
INDICATION: CHF with unclear volume status
�
RHC performed at weight 196 pounds
RA: 18
RV: 46/22
PA: 46/37
PCWP: 33
Oximetry: Ao 96%, PA 44%, cardiac output 2.8, cardiac index 1.3
�
COMPLICATIONS: None
�
Radiation (mGy): 44
DAP (cm2.Gy): 7.8
Fluoroscopy time: 4.0 minutes
�
CONCLUSION:
1. Elevated filling pressures with mild pulmonary hypertension
2. Low cardiac index
3. Given these findings I would not think he would tolerate further aggressive diuresis due to low cardiac index. If his CHF requires further acute treatment, inotropic therapy may be helpful
�
Copy to: Eliot Thomson MD, Manny Danielle MD
�
Eddie Beckett MD, [facility], [facility]
�
--- NOTE | 2024-05-31 15:28 | PTCARENOTE ---
Returned to lab post cath. R Femoral dressing CDI. Call dawson within reach.
--- NOTE | 2024-05-31 15:35 | CM ---
Alert awake oriented patient who lives with his Gracy who lives in a 1 story home with 1 step to enter. He is independent in all activities of daily living.He uses no adaptive devices.Offered resumption of [facility] . He is uncertain he wants
resumption .[facility] Liaison Denise De Leon notified,
[facility] hx /No SNF hx
Pharmacy [facility]
PCP DR Danielle
PLAN Home Unsure of [facility] VN
[2024-05-31] MEDS: LASIX IV (16:42)
[2024-05-31] MEDS: PRIMACOR 20 MG 100 IV (18:03)
--- NOTE | 2024-05-31 18:15 | PTCARENOTE ---
Received patient from 4th floor. Patient A&OX3, ambulatory to bed from stretcher. AV Paced on monitor HR 119. Milrinone gtt started. Patient call light in reach.
--- NOTE | 2024-05-31 23:11 | PTCARENOTE ---
Received pt at handoff. R groin is c/d/i. No hematoma/bleeding noted. Tele- V-paced. HR 90-119s. Pt has no c/o SOB/dizziness/discomfort at this time. Milrinone gtt infusing at 3.3 ml/hr. Pt currently in bed; call dawson w/in reach.
[2024-06-01] VITALS (8 sets, daily range): BP systolic 104–137; BP diastolic 74–99; BMI 26.4
[2024-06-01 02:16] LABS: Blood Urea Nitrogen 96 mg/dl (9-20); Calcium 9.2 mg/dl (8.4-10.2); Carbon Dioxide 29 mmol/L (22-30); Chloride 96 mmol/L (98-107); Estimated Creatinine Clearance 27 ml/min; Glucose 94 mg/dl (70-99); Magnesium 2.4 mg/dl (1.6-2.3); Potassium 4.9 mmol/L (3.5-5.1); Sodium 140 mmol/L (135-145); eGFR 27.66
[2024-06-01] MEDS: TOPROL XL 25 MG PO (08:27)
[2024-06-01] MEDS: ZETIA 10 MG PO (08:27)
[2024-06-01] MEDS: ASPIR LOW (ENTERIC COATED) 81 MG PO (08:27)
[2024-06-01] MEDS: THERAGRAN 1 TABLET PO (08:28)
[2024-06-01] MEDS: PACERONE 200 MG PO ×2 (08:28→19:22)
[2024-06-01] MEDS: LIPITOR 40 MG PO (08:28)
--- NOTE | 2024-06-01 09:00 | W.PN.HOSP.TC ---
Today's Communication/Plan
-
cont milrinone and Lasix
Nocturnal O2 test
Assessment / Plan
Assessment / Plan
4yo M with HFrEF, A.fib s/p ablation, CKD stage 3a, CAD, prostate CA, recent admission for CHF exacerbation complicated by hypotension, discharged on Lasix 40mg and stopped Entresto and Aldactone on last discharge, came with worsening nocturnal SOB,
managed for CHF exacerbation with cardiorenal syndrome
A/P:
#Orthopnea
#Acute on chronic HFrEF exacerbation s/p ICD
#Permanent Afib on ELiquis s/p PPM
#Atrial senced ventricular paced rhythm with episodes of tachycardia
#LUCIO, cannot exclude cardiorenal syndrome
RHC on 05/31/24 with elevated filling presures and low cardiac index - cardiology started aggressive diuresis with Milrinone and Lasix
Recent Echo with EF 30%
Cont daily weight and follow electrolytes
Follow BMP - Cr increased to 2.5 from 1.5 6 days ago
Telemetry
Low sodium diet and fluid restriction
TSH WNL
With worsened kidney function - Cr since last admission not <1.5 - decrease Eliquis to 2.5mg (patient >80yo)
Duoneb
#Transaminitis with mild bilirubinemia
follow LFT
unclear source at this time
#Paroxysmal nocturnal dyspnea
most liekly 2/2 CHF
Nocturnal O2 study to see if patient needs nocturnal O2 at home
#HLD
#CAD
#GERD
#Chronic constipation
#Prostate CA
cont home meds and follow up with already established specialists
#Daily alcohol use without abuse
Counselled to stop
#b/l pulmonary subcentimeter nodules
stable since 2019
DVT ppx on Eliquis
Full code
I have spent at least 39min reviewing chart, test results, communication with consultants and direct patient care
Anticipated Discharge: > 48 hours
Subjective/Interval History
-
Date of Service: June 01, 2024
Objective Data
-
Labs:
Laboratory Results
06/01/24
01:52
Sodium 140
Potassium 4.9
Chloride 96 L
Carbon Dioxide 29
BUN 96 H
Creatinine 2.3 H
Glucose 94
Calcium 9.2
Vital Signs:
Vital Signs
Temp Pulse Resp BP Pulse Ox
97.9 F 74 20 123/88 95
06/01/24 07:54 06/01/24 08:27 06/01/24 07:54 06/01/24 08:27 06/01/24 07:54
I&O
05/31/24 06/01/24 06/02/24
06:59 06:59 06:59
Intake Total 600 / 600
Output Total 300 / 300
Balance 300 / 300
Review of Systems
-
History Source: Patient
All other systems: Reviewed and negative
Physical Exam
-
General: No Apparent Distress
HEENT: Normocephalic
Respiratory: Clear to Auscultation
Cardiac: Regular Rhythm
GI: Soft, Nontender and Nondistended
Musculoskeletal: No Clubbing and No Cyanosis
Skin: Warm
Neuro: Awake, Alert, Oriented and AO x 3
Psych: Calm
--- NOTE | 2024-06-01 10:30 | W.PN.CD ---
Today's Communication / Plan
-
-Continue Milrinone-assisted diuresis
-Hold beta-efrain
Impression / Plan
-
BACKGROUND: 84M CAD s/p PCI (2014) persistent atrial fibrillation (PVI 05/2019, SSS s/p MDT PPM, ICM with ICD (previously 20%), and prostate cancer (watchful waiting), who presented to the emergency department with chief complaint of shortness of
breath.
EDUCATION PARAPROFESSIONAL: Dr. Levy
ICM/HFrEF (EF 30%), acute on chronic
-He reports orthopnea and shortness of breath which are improving since admission
-Lowest documented LVEF 20% in 2019
-Creatinine improving with initiation of milrinone. Continue IV diuresis. Suspect that he will have a new dry weight as he has already reached his previous dry weight (195 pounds).
-Appreciate nephrology input.
-Continue IV milrinone which requires intensive monitoring
-GDMT as tolerated
-Beta-efrain: Hold beta-efrain given that we think he has low output. Resume as tolerated.
-SGLT2: Jardiance 10 mg daily stopped during prior hospitalization
-ACEI/ARB: Sacubitril/valsartan 49-51 mg BID stopped during prior hospitalization
-MRA: Spironolactone 25mg stopped during prior hospitalization
-ICD: Medtronic
-Continue hold nephrotoxic medications
-Trend daily weight, I/O, and BMP with diuresis
-HF education
Persistent atrial fibrillation
-Continue amiodarone
-Ablation 03/21/2024
-Rates are elevated, on amiodarone, possible sinus tachycardia, will interrogate device
-Oral Anticoagulation: Apixaban 2.5 mg twice daily (age 84, creatinine >1.5)
-[id number]: score at least 5 (Heart failure, HTN, age 75 or more, Vascular disease)
CAD
-Stable without angina
-2014 stress test ordered for shortness of breath -> JOMAR RCA & LCx
LUCIO on CKD
-Nephrology following; nephrotoxic medications being held.
-Improving with Milrinone
Abnormal troponin, nonischemic myocardial injury in the setting of acute heart failure and LUCIO
Medtronic ICD, interrogate
Prediabetes, HgbA1c 5.7%
Former smoker, continued cessation recommended
Prostate cancer, watchful waiting
Subjective: Right heart catheterization yesterday revealed elevated pressures with low cardiac output and index. Patient was started on milrinone. He feels comfortable today but was unable to lay flat to sleep last night. Had to ask nurse for
supplemental oxygen and then he was able to sleep. He feels that his abdominal swelling has improved and he is back to normal. His weight today is back to his previous dry weight (195 pounds).
RHC (05/31/24):
RA: 18
RV: 46/22
PA: 46/37
PCWP: 33
Oximetry: Ao 96%, PA 44%, cardiac output 2.8, cardiac index 1.3
Physical Exam
Vital Signs/Labs
Vital Signs
Temp Pulse Resp BP Pulse Ox
97.9 F 74 20 123/88 95
06/01/24 07:54 06/01/24 08:27 06/01/24 07:54 06/01/24 08:27 06/01/24 07:54
05/31/24 06/01/24 06/02/24
06:59 06:59 06:59
Actual Weight 89.3 kg 88.1 kg
05/31/24 06:34
06/01/24 01:52
Magnesium 2.4 mg/dl (1.6-2.3) H 06/01/24 01:52
TSH 1.96 uIU/ml (0.47-4.68) 05/31/24 06:34
05/30/24
08:39
Qnm-M-Aahyaluctqp Pept 70210
LAB Results
05/30/24 05/30/24 05/30/24
08:39 14:18 19:36
Troponin I 0.052 H* 0.051 H* 0.053 H*
05/31/24
06:34
Troponin I 0.061 H*
Physical Exam
Constitutional: No acute distress and Comfortable
Cardiovascular: Rhythm & rate is regular and JVD present
Respiratory: Respiratory effort normal and Crackles Present
GI: Soft and Distention present
Data Reviewed
-
Transthoracic echocardiogram, 05/23/2024:
TDS, Definity should be used for subsequent studies.
Mildly dilated LV with moderate to severely reduced systolic function.
Estimated EF of 30%, however, poor endocardial definition.
Global diffuse hypokinesis. Stage II diastolic dysfunction suggestive of
abnormal relaxation and increased filling pressures.
Dilated RV with reduced systolic function.
Mild to moderate mitral regurgitation.
Estimated pulmonary artery pressure of 29 mmHg, assuming a right atrial
pressure of 3 mmHg.
Compared to prior from December 29, 2023, on nkes-mj-tcig comparison EF is now
moderate to severely reduced estimated at 30% previously estimated at 35%.
Date of Service: June 01, 2024
Medical Decision Making: Reviewed Test Results
Labs: Labs Reviewed by me
--- NOTE | 2024-06-01 10:31 | VNURNOTE ---
Spoke with patient. Prior to admission, he was current with [facility]- he had 1 nursing visit. He refused a second follow-up visit the next day and then came to . Patient agitated speaking with this author stating that prior to admission, he was
getting multiple phone calls from [facility]. Explained to patient typical frequency of VN visits and need to call prior to set appt. Explained to patient that [facility] was trying to see him in the home per our services to monitor symptoms. At end of
conversation, patient 'did not know' if he wanted to resume services at [facility]. [facility] Director Manufacturing Engineering Guanaco swartz. Will follow up once ID plans clearer.
--- NOTE | 2024-06-01 10:33 | W.PN.NEPH.PH ---
Today's Communication / Plan
-
Maintain diuresis
Cardiology directing inotropic therapy
Creatinine with modest improvement in setting of cardiorenal syndrome
Assessment/Plan
-
IMP:
Acute hypoxic respiratory failure, in the setting of acute HFrEF
ICM
HFrEF(30%), acute on chronic
JEREMIAS-cr 1.1 in 02/2024
ICD: Medtronic
Abnormal troponin
Persistent atrial fibrillation
CAD
Mild to moderate MR
Daily EtOH consumption
Prostate cancer
PLan:
Jeremias-mostly cardiorenal, had bland UA and non acure renal US last week
Fena not low with lasix, follow bladder scan , pVR 150cc
continues with lasix IV 40mg IV BID
creatinine down to 2.3, uop only recorded at 475cc but weights down
BP are stable
s/p RHC : PCWP : 33 with cardiac index to 1.3
Patient now on milrinone
d/w pt
-
-
Date of Service: June 01, 2024
CC / HPI / ROS
-
Chief Complaint:
JEREMIAS
History of Present Illness:
cr no change at 2.3
Now on milrinone
BP stable
Review of Systems:
no fever
no cp
sob improving , able to lay on bed now
Labs
-
Labs:
WBC 6.7 10^3/uL (4.8-10.8) 05/31/24 06:34
RBC 3.91 10^6/uL (4.70-6.10) L 05/31/24 06:34
Hgb 13.0 g/dL (13.0-18.0) 05/31/24 06:34
Hct 37.5 % (39.0-52.0) L 05/31/24 06:34
Plt Count 205 10^3/uL (130-400) 05/31/24 06:34
Sodium 140 mmol/L (135-145) 06/01/24 01:52
Potassium 4.9 mmol/L (3.5-5.1) 06/01/24 01:52
Chloride 96 mmol/L (98-107) L 06/01/24 01:52
Carbon Dioxide 29 mmol/L (22-30) 06/01/24 01:52
BUN 96 mg/dl (9-20) H 06/01/24 01:52
Creatinine 2.3 mg/dL (0.7-1.3) H 06/01/24 01:52
eGFR 27.66 06/01/24 01:52
Glucose 94 mg/dl (70-99) 06/01/24 01:52
Calcium 9.2 mg/dl (8.4-10.2) 06/01/24 01:52
Pba-T-Mrcegwyvjgm Pept 85645 pg/ml 05/30/24 08:39
Physical Exam
-
Vital Signs:
Vital Signs
Temp Pulse Resp BP Pulse Ox
97.9 F 74 20 123/88 95
06/01/24 07:54 06/01/24 08:27 06/01/24 07:54 06/01/24 08:27 06/01/24 07:54
Cardiovascular:: Regular rate and rhythm
Respiratory:: Bilateral: CTA
Lung Excursion:: Normal (decreased BS)
Abdomen:: Nontender and Soft
Extremity Edema:: None: Bilateral:
Elizabeth Catheter: No
[2024-06-01] MEDS: LASIX 40 MG IV ×2 (10:37→16:30)
[2024-06-01 10:44] LABS: ALT (SGPT) 197 U/L (0-50); AST (SGOT) 118 U/L (17-59); Albumin 4.2 g/dl (3.5-5.0); Alkaline Phosphatase 71 U/L (38-126); Total Bilirubin 1.5 mg/dl (0.2-1.3); Total Protein 6.6 g/dl (6.3-8.2)
--- NOTE | 2024-06-01 14:16 | CM ---
Chart reviewed. Patient is independent of ADLS, lives with his in a 1 STH, 1 PAOLA, 0 DME. Patient is current with [facility]. Plan is for the patient to return home with [facility]. CM to follow
[2024-06-01 14:39] LABS: Folate > 20.0 ng/ml (2.76-20); Vitamin B12 751 pg/ml (239-931)
[2024-06-01 16:49] LABS: Direct Bilirubin 0.5 mg/dl (0.0-0.4); LDH 284 U/L (120-246)
[2024-06-01] MEDS: PRIMACOR 20 MG 100 IV (17:47)
--- NOTE | 2024-06-01 21:35 | PTCARENOTE ---
Received pt at handoff. AOX3 and pleasant. Tele- AV paced. HR 90-120s. Assessment completed as documented. Milrinone gtt infusing at 3.3 ml/hr. Plan of care discussed w/ pt. Verbalizes understanding. Currently in bed; call samir w/in reach.
--- NOTE | 2024-06-01 22:11 | RESPNOTE ---
Patient placed on trending nocturnal pulse oximetry at this time. SpO2 on room air is 96%.
[2024-06-02] VITALS (10 sets, daily range): BP systolic 96–128; BP diastolic 73–94; PULSE 107–108; O2SAT 96–97; BMI 26.0
[2024-06-02] MEDS: ELIQUIS 2.5 MG PO ×3 (00:17→19:36)
--- NOTE | 2024-06-02 00:20 | PTCARENOTE ---
This RN noted pt has not been restarted on eliquis since [facility] on 05/31. Felecia Hurd MD made aware via telephone and orders placed. 2.5 mg PO eliquis ordered and administered. See OCT.
[2024-06-02 03:14] LABS: % Basophils 0.5 % (0-2); % Eosinophils 1.7 % (0-6); % Immature Granulocytes 0.2 % (0-0.5); % Monocytes 12.7 % (1.7-9.3); % Neutrophils 69.9 % (42.2-75.2); Absolute Eosinophils 0.1 10^3/uL (0-0.7); Absolute Lymphocytes 0.9 10^3/uL (1.2-3.4); Absolute Monocytes 0.8 10^3/uL (0.1-0.6); Absolute Neutrophils 4.1 10^3/uL (1.4-6.5); Hematocrit 35.5 % (39.0-52.0); Hemoglobin 12.3 g/dL (13.0-18.0); Mean Corp Hgb Conc. 34.6 g/dL (33.0-37.0); Mean Corpuscular Hgb 31.9 pg (27.0-31.0); Mean Platelet Volume 10.5 fL (7.4-10.4); Nucleated Red Blood Cells % 0 % (-); Platelet Count 218 10^3/uL (130-400); Red Blood Cell Count 3.86 10^6/uL (4.70-6.10); Red Cell Dist. Width 14.1 % (11.5-14.5); White Blood Cell Count 5.9 10^3/uL (4.8-10.8)
[2024-06-02 03:43] LABS: ALT (SGPT) 160 U/L (0-50); AST (SGOT) 73 U/L (17-59); Albumin 3.8 g/dl (3.5-5.0); Alkaline Phosphatase 72 U/L (38-126); Blood Urea Nitrogen 83 mg/dl (9-20); Calcium 9.3 mg/dl (8.4-10.2); Carbon Dioxide 29 mmol/L (22-30); Chloride 97 mmol/L (98-107); Estimated Creatinine Clearance 31 ml/min; Glucose 96 mg/dl (70-99); Magnesium 2.3 mg/dl (1.6-2.3); Potassium 3.9 mmol/L (3.5-5.1); Sodium 139 mmol/L (135-145); Total Bilirubin 1.7 mg/dl (0.2-1.3); Total Protein 6.2 g/dl (6.3-8.2); eGFR 32.71
[2024-06-02] MEDS: ASPIR LOW (ENTERIC COATED) 81 MG PO (07:44)
[2024-06-02] MEDS: LIPITOR 40 MG PO (07:45)
[2024-06-02] MEDS: THERAGRAN 1 TABLET PO (07:45)
[2024-06-02] MEDS: PACERONE 200 MG PO ×2 (08:57→19:36)
[2024-06-02] MEDS: ZETIA 10 MG PO (08:58)
[2024-06-02] MEDS: LASIX 40 MG IV ×2 (08:59→16:14)
--- NOTE | 2024-06-02 09:00 | W.PN.CD ---
Today's Communication / Plan
-
Cont milrinone and IV diuresis
Impression / Plan
-
BACKGROUND: 84M CAD s/p PCI (2014) persistent atrial fibrillation (PVI 05/2019, SSS s/p MDT PPM, ICM with ICD (previously 20%), and prostate cancer (watchful waiting), who presented to the emergency department with chief complaint of shortness of
breath.
RECONCILIATION SPECIALIST: Dr. Leyv
ICM/HFrEF (EF 30%), acute on chronic
-He reports orthopnea and shortness of breath which are improving since admission
-Lowest documented LVEF 20% in 2019
-Creatinine continues to improve Continue IV diuresis. Previous dry weight of 195 lbs, he now weights 191, cont diuresis
-Appreciate nephrology input.
-Continue IV milrinone which requires intensive monitoring, likely can stop in next couple of days
-GDMT as tolerated
-Beta-efrain: Hold beta-efrain given that we think he has low output. Resume as tolerated.
-SGLT2: Jardiance 10 mg daily stopped during prior hospitalization
-ACEI/ARB: Sacubitril/valsartan 49-51 mg BID stopped during prior hospitalization
-MRA: Spironolactone 25mg stopped during prior hospitalization
-ICD: Medtronic
-Continue hold nephrotoxic medications
-Trend daily weight, I/O, and BMP with diuresis
-HF education
Persistent atrial fibrillation
-Continue amiodarone
-Ablation 03/21/2024
-Rates are elevated, on amiodarone, possible sinus tachycardia, will interrogate device
-Oral Anticoagulation: Apixaban 2.5 mg twice daily (age 84, creatinine >1.5)
-[id number]: score at least 5 (Heart failure, HTN, age 75 or more, Vascular disease)
CAD
-Stable without angina
-2014 stress test ordered for shortness of breath -> JOMAR RCA & LCx
LUCIO on CKD
-Nephrology following; nephrotoxic medications being held.
-Improving with Milrinone
Abnormal troponin, nonischemic myocardial injury in the setting of acute heart failure and LUCIO
Medtronic ICD, interrogate
Prediabetes, HgbA1c 5.7%
Former smoker, continued cessation recommended
Prostate cancer, watchful waiting
Subjective: Abdominal bloating continues to improve, breathing is improved, overall feeling better
RHC (05/31/24):
RA: 18
RV: 46/22
PA: 46/37
PCWP: 33
Oximetry: Ao 96%, PA 44%, cardiac output 2.8, cardiac index 1.3
Physical Exam
Vital Signs/Labs
Vital Signs
Temp Pulse Resp BP Pulse Ox
97.8 F 103 20 117/73 96
06/02/24 08:01 06/02/24 08:57 06/02/24 08:01 06/02/24 08:57 06/02/24 08:01
06/01/24 06/02/24 06/03/24
06:59 06:59 06:59
Actual Weight 194 lb 3.636 oz 191 lb 9.307 oz
06/02/24 02:54
06/02/24 02:54
Magnesium 2.3 mg/dl (1.6-2.3) 06/02/24 02:54
TSH 1.96 uIU/ml (0.47-4.68) 05/31/24 06:34
05/30/24
08:39
Rzg-H-Btxsdwollql Pept [id number]
LAB Results
05/30/24 05/30/24 05/30/24
08:39 14:18 19:36
Troponin I 0.052 H* 0.051 H* 0.053 H*
05/31/24
06:34
Troponin I 0.061 H*
Physical Exam
Constitutional: No acute distress and Comfortable
Cardiovascular: Pedal edema is absent and Rhythm/rate is irregular
Respiratory: Respiratory effort normal and Lungs clear to auscul.
GI: Soft
Neuro/Psych: AO x 3
Data Reviewed
-
Date of Service: June 02, 2024
Medical Decision Making: Reviewed Test Results
EKG: Tracing Personally Visualized and interpreted (paced)
Echo: Report Reviewed by me
Labs: Labs Reviewed by me
--- NOTE | 2024-06-02 10:05 | W.PN.HOSP.TC ---
Today's Communication/Plan
-
Cr improving - cardio cont Milrinone and diuresis
Assessment / Plan
Assessment / Plan
84yo M with HFrEF, A.fib s/p ablation, CKD stage 3a, CAD, prostate CA, recent admission for CHF exacerbation complicated by hypotension, discharged on Lasix 40mg and stopped Entresto and Aldactone on last discharge, came with worsening nocturnal
SOB, managed for CHF exacerbation with cardiorenal syndrome
A/P:
#Orthopnea
#Acute on chronic HFrEF exacerbation s/p ICD
#Permanent Afib on ELiquis s/p PPM
#Atrial senced ventricular paced rhythm with episodes of tachycardia
#LUCIO, cannot exclude cardiorenal syndrome
RHC on 05/31/24 with elevated filling presures and low cardiac index - cardiology started aggressive diuresis with Milrinone and Lasix
Recent Echo with EF 30%
Cont daily weight and follow electrolytes
Follow BMP - Cr increased to 2.5 from 1.5 6 days ago
Telemetry
Low sodium diet and fluid restriction
TSH WNL
With worsened kidney function - Cr since last admission not <1.5 - decrease Eliquis to 2.5mg (patient >80yo)
Duoneb
#Transaminitis with mild bilirubinemia
most likely 2/2 hepatic congestion
follow LFT
#Paroxysmal nocturnal dyspnea
most likely 2/2 CHF
Nocturnal O2 study to see if patient needs nocturnal O2 at home
#HLD
#CAD
#GERD
#Chronic constipation
#Prostate CA
cont home meds and follow up with already established specialists
#Daily alcohol use without abuse
Counselled to stop
#b/l pulmonary subcentimeter nodules
stable since 2019
DVT ppx on Eliquis
Full code
I have spent at least 39min reviewing chart, test results, communication with consultants and direct patient care
Anticipated Discharge: > 48 hours
Subjective/Interval History
-
Date of Service: June 02, 2024
Objective Data
-
Labs:
Laboratory Results
06/02/24
02:54
WBC 5.9
Hgb 12.3 L
Hct 35.5 L
Plt Count 218
Sodium 139
Potassium 3.9
Chloride 97 L
Carbon Dioxide 29
BUN 83 H
Creatinine 2.0 H
Glucose 96
Calcium 9.3
Total Bilirubin 1.7 H
AST 73 H
ALT 160 H
Alkaline Phosphatase 72
Vital Signs:
Vital Signs
Temp Pulse Resp BP Pulse Ox
97.8 F 99 20 128/94 96
06/02/24 08:01 06/02/24 09:32 06/02/24 08:01 06/02/24 09:32 06/02/24 09:32
I&O
06/01/24 06/02/24 06/03/24
06:59 06:59 06:59
Intake Total 679.2 / 679.2
Output Total 2024
Balance -1345.8 / -1345.8
Review of Systems
-
History Source: Patient
All other systems: Reviewed and negative
Physical Exam
-
General: Well Developed and Well Nourished
HEENT: Normocephalic
Respiratory: Clear to Auscultation
Cardiac: Irregular Rhythm
GI: Soft, Nontender and Nondistended
Musculoskeletal: No Clubbing, No Cyanosis and No Edema
Neuro: Awake, Alert, Oriented and AO x 3
Psych: Calm
--- NOTE | 2024-06-02 10:32 | W.PN.NEPH.PH ---
Today's Communication / Plan
-
maintain diuresis
Assessment/Plan
-
IMP:
Acute hypoxic respiratory failure, in the setting of acute HFrEF
ICM
HFrEF(30%), acute on chronic
JEREMIAS-cr 1.1 in 02/2024
ICD: Medtronic
Abnormal troponin
Persistent atrial fibrillation
CAD
Mild to moderate MR
Daily EtOH consumption
Prostate cancer
PLan:
Jeremias-mostly cardiorenal, had bland UA and non acure renal US last week
Fena not low with lasix, follow bladder scan , pVR 150cc
continues with lasix IV 40mg IV BID
creatinine down to 2.0, uop recorded at 1550but weights down
BP are stable
s/p RHC : PCWP : 33 with cardiac index to 1.3
Patient now on milrinone
d/w pt
-
-
Date of Service: June 02, 2024
CC / HPI / ROS
-
Chief Complaint:
JEREMIAS
History of Present Illness:
cr down to 2
Now on milrinone
BP stable
Review of Systems:
no fever
no cp
sob improving ,non olgiuric
weights down
Labs
-
Labs:
WBC 5.9 10^3/uL (4.8-10.8) 06/02/24 02:54
RBC 3.86 10^6/uL (4.70-6.10) L 06/02/24 02:54
Hgb 12.3 g/dL (13.0-18.0) L 06/02/24 02:54
Hct 35.5 % (39.0-52.0) L 06/02/24 02:54
Plt Count 218 10^3/uL (130-400) 06/02/24 02:54
Sodium 139 mmol/L (135-145) 06/02/24 02:54
Potassium 3.9 mmol/L (3.5-5.1) 06/02/24 02:54
Chloride 97 mmol/L (98-107) L 06/02/24 02:54
Carbon Dioxide 29 mmol/L (22-30) 06/02/24 02:54
BUN 83 mg/dl (9-20) H 06/02/24 02:54
Creatinine 2.0 mg/dL (0.7-1.3) H 06/02/24 02:54
eGFR 32.71 06/02/24 02:54
Glucose 96 mg/dl (70-99) 06/02/24 02:54
Calcium 9.3 mg/dl (8.4-10.2) 06/02/24 02:54
Mlg-Z-Ksunpesqasj Pept 67199 pg/ml 05/30/24 08:39
Albumin 3.8 g/dl (3.5-5.0) 06/02/24 02:54
Physical Exam
-
Vital Signs:
Vital Signs
Temp Pulse Resp BP Pulse Ox
97.8 F 99 20 128/94 96
06/02/24 08:01 06/02/24 09:32 06/02/24 08:01 06/02/24 09:32 06/02/24 09:32
Cardiovascular:: Regular rate and rhythm
Respiratory:: Bilateral: CTA
Lung Excursion:: Normal (decreased BS)
Abdomen:: Nontender and Soft
Extremity Edema:: None: Bilateral:
Elizabeth Catheter: No
--- NOTE | 2024-06-02 14:42 | CM ---
Reviewed chart. Met with and Mrs. Patel to review discharge plans. He states prior to admission he resides with his spouse in a one story home with one step to enter. He states prior to admission he was independent with ambulation and
adls. He states he does not have any DME in the home. He states he has a prescription plan. He states he was current with [facility]. He is agreeable to [facility]. Referral sent yesterday. Medical work-up in progress. The
discharge plan is to return home with his spouse and resumption of [facility] when medically stable.
[2024-06-02] MEDS: PRIMACOR 20 MG 100 IV (21:59)
[2024-06-03 04:46] VITALS: BP 121/97
[2024-06-03 05:53] LABS: Blood Urea Nitrogen 62 mg/dl (9-20); Calcium 9.3 mg/dl (8.4-10.2); Carbon Dioxide 32 mmol/L (22-30); Chloride 96 mmol/L (98-107); Estimated Creatinine Clearance 39 ml/min; Glucose 90 mg/dl (70-99); Magnesium 2.3 mg/dl (1.6-2.3); Potassium 3.8 mmol/L (3.5-5.1); Sodium 139 mmol/L (135-145); eGFR 42.75
[2024-06-03 06:00] VITALS: BMI 25.9
[2024-06-03 07:57] VITALS: BP 108/85
--- NOTE | 2024-06-03 08:04 | W.PN.CD ---
Today's Communication / Plan
-
continue iv milrinone drip with intensive monitoring
keep better track of i/o
monitor cr adjust med dosing as needed (Eliquis)
Impression / Plan
-
BACKGROUND: 84M CAD s/p PCI (2014) persistent atrial fibrillation (PVI 05/2019, SSS s/p MDT PPM, ICM with ICD (previously 20%), and prostate cancer (watchful waiting), who presented to the emergency department with chief complaint of shortness of
breath.
COMMUNICATION LECTURER: Dr. Levy
ICM/HFrEF (EF 30%), acute on chronic
-He reports orthopnea and shortness of breath which are improving since admission
-Lowest documented LVEF 20% in 2019
-Creatinine continues to improve Continue IV diuresis. Previous dry weight of 195 lbs, he now weights 190, cont diuresis
-Appreciate nephrology input.
-Continue IV milrinone which requires intensive monitoring---reeval for possible d/c in am
-GDMT as tolerated
-Beta-efrain: Hold beta-efrain given that we think he has low output. Resume as tolerated.
-SGLT2: Jardiance 10 mg daily stopped during prior hospitalization
-ACEI/ARB: Sacubitril/valsartan 49-51 mg BID stopped during prior hospitalization
-MRA: Spironolactone 25mg stopped during prior hospitalization
-ICD: Medtronic
-Continue hold nephrotoxic medications
-Trend daily weight, I/O, and BMP with diuresis
-HF education
Persistent atrial fibrillation
-Continue amiodarone
-Ablation 03/21/2024
-Rates are elevated, on amiodarone, possible sinus tachycardia, will interrogate device
-Oral Anticoagulation: Apixaban 2.5 mg twice daily (age 84, creatinine >1.5)---Will need to watch this dose as cr improves
-[id number]: score at least 5 (Heart failure, HTN, age 75 or more, Vascular disease)
CAD
-Stable without angina
-2014 stress test ordered for shortness of breath -> JOMAR RCA & LCx
LUCIO on CKD
-Nephrology following; nephrotoxic medications being held.
-Improving with Milrinone
Abnormal troponin, nonischemic myocardial injury in the setting of acute heart failure and LUCIO
Medtronic ICD, interrogate
Prediabetes, HgbA1c 5.7%
Former smoker, continued cessation recommended
Prostate cancer, watchful waiting
Subjective: feeling better, some orthopnea at night still
RHC (05/31/24):
RA: 18
RV: 46/22
PA: 46/37
PCWP: 33
Oximetry: Ao 96%, PA 44%, cardiac output 2.8, cardiac index 1.3
Physical Exam
Vital Signs/Labs
Vital Signs
Temp Pulse Resp BP Pulse Ox
98.3 F 98 16 108/85 95
06/03/24 07:57 06/03/24 07:57 06/03/24 07:57 06/03/24 07:57 06/03/24 07:57
06/02/24 06/03/24 06/04/24
06:59 06:59 06:59
Actual Weight 86.9 kg 86.5 kg
06/02/24 02:54
06/03/24 04:55
Magnesium 2.3 mg/dl (1.6-2.3) 06/03/24 04:55
TSH 1.96 uIU/ml (0.47-4.68) 05/31/24 06:34
05/30/24
08:39
Rlk-X-Hyimwwyxvac Pept [id number]
LAB Results
05/31/24
06:34
Troponin I 0.061 H*
Physical Exam
Constitutional: No acute distress
Cardiovascular: Rhythm & rate is regular, Pedal edema is absent, Pedal edema present, JVD present (13 cm H20) and S1S2 is normal
Respiratory: Respiratory effort normal, Lungs clear to auscul., Wheeze Absent and Crackles Present (bibasilar rales)
Neuro/Psych: AO x 3
Data Reviewed
-
Date of Service: June 03, 2024
EKG: Other (tele av pacing, pacing)
[2024-06-03] MEDS: THERAGRAN 1 TABLET PO (08:06)
[2024-06-03] MEDS: LIPITOR 40 MG PO (08:06)
[2024-06-03] MEDS: ZETIA 10 MG PO (08:06)
[2024-06-03] MEDS: PACERONE 200 MG PO ×2 (08:06→19:19)
[2024-06-03] MEDS: ASPIR LOW (ENTERIC COATED) 81 MG PO (08:07)
[2024-06-03] MEDS: ELIQUIS 2.5 MG PO ×2 (08:07→19:18)
[2024-06-03] MEDS: LASIX 40 MG IV ×2 (08:07→16:06)
--- NOTE | 2024-06-03 09:36 | PTCARENOTE ---
Assumed care of pt from night RN. Pt received awake and alert, Ox3. VSS, Milrinone drip infusing at 0.125mcg/kg through RFA. CM shows AV pacing 70's, POX 95% on RA. Pt denies any pain or discomfort, ambulating freely in room.
[2024-06-03 11:13] VITALS: BP 127/104
--- NOTE | 2024-06-03 11:27 | CM ---
Reviewed chart. Met with Mr. Patel to review discharge plans. He states he is feeling well and maybe able to go home soon. We reviewed resumption of [facility]. He is agreeable to a [facility]. Telephone call to [facility] to give them tentative discharge date. Prior to admission he resides with his spouse in a one story home with one step to enter. Prior to admission he was independent with ambulation and adls. He does not have any DME in the home.
He has a prescription plan. He is current with [facility]. Medical work-up in progress, The discharge plan is to return home with his spouse and resumption of [facility] when medically stable.
--- NOTE | 2024-06-03 11:53 | W.PN.HOSP.TC ---
Today's Communication/Plan
-
cont diuresis with milrinone for today
Assessment / Plan
Assessment / Plan
84yo M with HFrEF, A.fib s/p ablation, CKD stage 3a, CAD, prostate CA, recent admission for CHF exacerbation complicated by hypotension, discharged on Lasix 40mg and stopped Entresto and Aldactone on last discharge, came with worsening nocturnal
SOB, managed for CHF exacerbation with cardiorenal syndrome
A/P:
#Orthopnea
#Acute on chronic HFrEF exacerbation s/p ICD
#Permanent Afib on ELiquis s/p PPM
#Atrial senced ventricular paced rhythm with episodes of tachycardia
#LUCIO, cannot exclude cardiorenal syndrome
RHC on 05/31/24 with elevated filling presures and low cardiac index - cardiology started aggressive diuresis with Milrinone and Lasix
Recent Echo with EF 30%
Cont daily weight and follow electrolytes
Follow BMP - Cr increased to 2.5 from 1.5 6 days ago
Telemetry
Low sodium diet and fluid restriction
TSH WNL
With worsened kidney function - Cr since last admission not <1.5 - decrease Eliquis to 2.5mg (patient >80yo)
Duoneb
#Transaminitis with mild bilirubinemia
most likely 2/2 hepatic congestion
follow LFT
#Paroxysmal nocturnal dyspnea
most likely 2/2 CHF
Nocturnal O2 study
#HLD
#CAD
#GERD
#Chronic constipation
#Prostate CA
cont home meds and follow up with already established specialists
#Daily alcohol use without abuse
Counselled to stop
#b/l pulmonary subcentimeter nodules
stable since 2019
DVT ppx on Eliquis
Full code
I have spent at least 39min reviewing chart, test results, communication with consultants and direct patient care
Anticipated Discharge: > 48 hours
Subjective/Interval History
-
Date of Service: June 03, 2024
Objective Data
-
Labs:
Laboratory Results
06/03/24
04:55
Sodium 139
Potassium 3.8
Chloride 96 L
Carbon Dioxide 32 H
BUN 62 H
Creatinine 1.6 H
Glucose 90
Calcium 9.3
Vital Signs:
Vital Signs
Temp Pulse Resp BP Pulse Ox
97.4 F 98 18 108/85 97
06/03/24 11:11 06/03/24 07:57 06/03/24 11:11 06/03/24 07:57 06/03/24 11:11
I&O
06/02/24 06/03/24 06/04/24
06:59 06:59 06:59
Intake Total 679.2 / 679.2 939.6 / 939.6 450 / 450
Output Total 2024 375 / 375
Balance -1345.8 / -1345.8 939.6 / 939.6 75 / 75
Review of Systems
-
History Source: Patient
All other systems: Reviewed and negative
Physical Exam
-
General: Well Nourished and No Apparent Distress
Respiratory: Clear to Auscultation
GI: Soft, Nontender and Nondistended
Neuro: Awake, Alert, Oriented and AO x 3
Psych: Calm
[2024-06-03 15:34] VITALS: BP 121/88
--- NOTE | 2024-06-03 17:37 | W.PN.NEPH.PH ---
Today's Communication / Plan
-
cont lasix
Assessment/Plan
-
IMP:
Acute hypoxic respiratory failure, in the setting of acute HFrEF
ICM
HFrEF(30%), acute on chronic
JEREMIAS-cr 1.1 in 02/2024
ICD: Medtronic
Abnormal troponin
Persistent atrial fibrillation
CAD
Mild to moderate MR
Daily EtOH consumption
Prostate cancer
PLan:
Jeremias-mostly cardiorenal, had bland UA and non acute renal US in sep
Fena not low with lasix, follow bladder scan , pVR 150cc
continues with lasix IV 40mg IV BID
creatinine down to 1.6, weights down
BP are stable
s/p RHC : PCWP : 33 with cardiac index to 1.3
milrinone per cards
d/w pt
-
-
Date of Service: June 03, 2024
CC / HPI / ROS
-
Chief Complaint:
JEREMIAS
History of Present Illness:
cr down to 1.6
Now on milrinone
BP stable
wt is down
UOP not recorded
Review of Systems:
no fever
no cp
sob better and able to walk in halways
Labs
-
Labs:
WBC 5.9 10^3/uL (4.8-10.8) 06/02/24 02:54
RBC 3.86 10^6/uL (4.70-6.10) L 06/02/24 02:54
Hgb 12.3 g/dL (13.0-18.0) L 06/02/24 02:54
Hct 35.5 % (39.0-52.0) L 06/02/24 02:54
Plt Count 218 10^3/uL (130-400) 06/02/24 02:54
Sodium 139 mmol/L (135-145) 06/03/24 04:55
Potassium 3.8 mmol/L (3.5-5.1) 06/03/24 04:55
Chloride 96 mmol/L (98-107) L 06/03/24 04:55
Carbon Dioxide 32 mmol/L (22-30) H 06/03/24 04:55
BUN 62 mg/dl (9-20) H 06/03/24 04:55
Creatinine 1.6 mg/dL (0.7-1.3) H 06/03/24 04:55
eGFR 42.75 06/03/24 04:55
Glucose 90 mg/dl (70-99) 06/03/24 04:55
Calcium 9.3 mg/dl (8.4-10.2) 06/03/24 04:55
Jtg-Y-Imzxvofryft Pept 64720 pg/ml 05/30/24 08:39
Albumin 3.8 g/dl (3.5-5.0) 06/02/24 02:54
Physical Exam
-
Vital Signs:
Vital Signs
Temp Pulse Resp BP Pulse Ox
97.5 F 104 18 121/88 96
06/03/24 15:30 06/03/24 15:34 06/03/24 15:30 06/03/24 15:34 06/03/24 15:30
Cardiovascular:: Regular rate and rhythm
Respiratory:: Bilateral: CTA
Lung Excursion:: Normal
Abdomen:: Nontender and Soft
Extremity Edema:: None: Bilateral:
Elizabeth Catheter: No
[2024-06-03 18:53] VITALS: BP 129/78
--- NOTE | 2024-06-03 20:35 | PTCARENOTE ---
Pt. received at change of shift. Pt. seen and assessed in room. Pt. AOx3, tele reading A pacing in the 90s. VS WNL. Milrinone drip infusing at 0.125mcg/kg through RFA. Pt. ambulating in room. No complaints at this time. Call dawson within reach.
Continuing to monitor at this time.
[2024-06-03] MEDS: COLACE 200 MG PO (21:26)
[2024-06-03 22:21] VITALS: BP 113/98
[2024-06-04] VITALS (10 sets, daily range): BP systolic 95–139; BP diastolic 62–107; BMI 25.6
[2024-06-04] MEDS: PRIMACOR 20 MG 100 IV (01:22)
[2024-06-04 04:06] LABS: % Basophils 0.6 % (0-2); % Immature Granulocytes 0.3 % (0-0.5); % Lymphocytes 13.5 % (20.5-51.1); % Monocytes 10.2 % (1.7-9.3); % Neutrophils 73.4 % (42.2-75.2); Absolute Eosinophils 0.1 10^3/uL (0-0.7); Absolute Lymphocytes 0.9 10^3/uL (1.2-3.4); Absolute Monocytes 0.7 10^3/uL (0.1-0.6); Absolute Neutrophils 4.8 10^3/uL (1.4-6.5); Hematocrit 35.2 % (39.0-52.0); Hemoglobin 12.3 g/dL (13.0-18.0); Mean Corp Hgb Conc. 34.9 g/dL (33.0-37.0); Mean Corpuscular Hgb 31.9 pg (27.0-31.0); Mean Corpuscular Volume 91.2 fL (80.0-94.0); Mean Platelet Volume 10.2 fL (7.4-10.4); Nucleated Red Blood Cells % 0 % (-); Platelet Count 200 10^3/uL (130-400); Red Blood Cell Count 3.86 10^6/uL (4.70-6.10); Red Cell Dist. Width 14.3 % (11.5-14.5); White Blood Cell Count 6.5 10^3/uL (4.8-10.8)
[2024-06-04 04:49] LABS: Blood Urea Nitrogen 50 mg/dl (9-20); Calcium 9.1 mg/dl (8.4-10.2); Carbon Dioxide 30 mmol/L (22-30); Chloride 97 mmol/L (98-107); Estimated Creatinine Clearance 45 ml/min; Glucose 94 mg/dl (70-99); Magnesium 2.1 mg/dl (1.6-2.3); Potassium 3.8 mmol/L (3.5-5.1); Sodium 137 mmol/L (135-145); eGFR 50.18
[2024-06-04] MEDS: ELIQUIS 2.5 MG PO ×2 (07:46→09:44)
[2024-06-04] MEDS: ASPIR LOW (ENTERIC COATED) 81 MG PO (07:46)
[2024-06-04] MEDS: LIPITOR 40 MG PO (07:47)
[2024-06-04] MEDS: PACERONE 200 MG PO ×2 (07:47→21:11)
[2024-06-04] MEDS: LASIX 40 MG IV ×2 (07:47→18:03)
[2024-06-04] MEDS: ZETIA 10 MG PO (07:47)
[2024-06-04] MEDS: THERAGRAN 1 TABLET PO (07:47)
--- NOTE | 2024-06-04 10:16 | W.PN.CD ---
Addendum entered and electronically signed by Flako Dominique MD 06/04/24 10:23:
eliquis increased to 5mg bid today with Cr 1.4
Original Note:
Today's Communication / Plan
-
will stop milrinone, and continue IV lasix
trend weight, Cr, tele
Impression / Plan
-
BACKGROUND: 84M CAD s/p PCI (2014) persistent atrial fibrillation (PVI 05/2019, SSS s/p MDT PPM, ICM with ICD (previously 20%), and prostate cancer (watchful waiting), who presented to the emergency department with chief complaint of shortness of
breath.
BANKRUPTCY LAW SPECIALIST: Dr. Levy
ICM/HFrEF (EF 30%), acute on chronic, severe, with low cardiac index requiring milrinone this admission, and cardiorenal syndrome
-He reports orthopnea and shortness of breath which are improving since admission
-Lowest documented LVEF 20% in 2019
-Creatinine continues to improve Continue IV diuresis. Previous dry weight of 195 lbs, he now weights 188, cont diuresis
-Appreciate nephrology input.
-will stop milrinone today
-GDMT as tolerated
-Beta-efrain: Hold beta-efrain given that we think he has low output. Resume as tolerated.
-SGLT2: Jardiance 10 mg daily stopped during prior hospitalization
-ACEI/ARB: Sacubitril/valsartan 49-51 mg BID stopped during prior hospitalization
-MRA: Spironolactone 25mg stopped during prior hospitalization
-ICD: Medtronic
-Continue hold nephrotoxic medications
-Trend daily weight, I/O, and BMP with diuresis
-HF education
Persistent atrial fibrillation s/p PVI 03/21/24
-Continue amiodarone
-mostly in sinus (AV pacing)
-episodes of tachycardia: possible sinus tachycardia vs atrial tachycardia
-EP to advise
-Oral Anticoagulation: Apixaban 2.5 mg twice daily (age 84, creatinine >1.5)---Will need to watch this dose as cr improves
-[id number]: score at least 5 (Heart failure, HTN, age 75 or more, Vascular disease)
CAD
-Stable without angina
-2014 stress test ordered for shortness of breath -> JOMAR RCA & LCx, continues on ASA
LUCIO on CKD
-Nephrology following; nephrotoxic medications being held.
-Improved with diuresis
Abnormal troponin, nonischemic myocardial injury in the setting of acute heart failure and LUCIO
Medtronic ICD, interrogate
Prediabetes, HgbA1c 5.7%
Former smoker, continued cessation recommended
Prostate cancer, watchful waiting
Subjective: feeling overall better, with some orthopnea at night still
RHC (05/31/24):
RA: 18
RV: 46/22
PA: 46/37
PCWP: 33
Oximetry: Ao 96%, PA 44%, cardiac output 2.8, cardiac index 1.3
Physical Exam
Vital Signs/Labs
Vital Signs
Temp Pulse Resp BP Pulse Ox
98.1 F 99 18 106/89 96
06/04/24 07:39 06/04/24 07:47 06/04/24 07:39 06/04/24 07:47 06/04/24 07:39
06/03/24 06/04/24 06/05/24
06:59 06:59 06:59
Actual Weight 86.5 kg 85.7 kg
06/04/24 03:44
06/04/24 03:44
Magnesium 2.1 mg/dl (1.6-2.3) 06/04/24 03:44
TSH 1.96 uIU/ml (0.47-4.68) 05/31/24 06:34
05/30/24
08:39
Ggy-G-Dmzyvsyoyrs Pept 20276
Physical Exam
Constitutional: No acute distress
EENT: Moist mucous membranes
Cardiovascular: Rhythm & rate is regular, Pedal edema is absent, Systolic murmur absent and JVD present
Respiratory: Respiratory effort normal and Lungs clear to auscul.
Neuro/Psych: AO x 3
Data Reviewed
-
Date of Service: June 04, 2024
EKG: Other (Tele: AV paced mostly, with some SVT)
Labs: Labs Reviewed by me
--- NOTE | 2024-06-04 12:47 | W.PN.HOSP.TC ---
Today's Communication/Plan
-
Milrinone stopped
cont diuresis
Assessment / Plan
Assessment / Plan
84yo M with HFrEF, A.fib s/p ablation, CKD stage 3a, CAD, prostate CA, recent admission for CHF exacerbation complicated by hypotension, discharged on Lasix 40mg and stopped Entresto and Aldactone on last discharge, came with worsening nocturnal
SOB, managed for CHF exacerbation with cardiorenal syndrome
A/P:
#Orthopnea
#Acute on chronic HFrEF exacerbation s/p ICD
#Permanent Afib on Eliquis s/p PPM with episodes of PSVT
#Atrial senced ventricular paced rhythm with episodes of tachycardia
#LUCIO, cannot exclude cardiorenal syndrome
RHC on 05/31/24 with elevated filling presures and low cardiac index - cardiology started aggressive diuresis with Milrinone and Lasix
Recent Echo with EF 30%
Cont daily weight and follow electrolytes
Follow BMP - Cr increased to 2.5 from 1.5 6 days ago
Telemetry
Low sodium diet and fluid restriction
TSH WNL
With worsened kidney function - Cr since last admission not <1.5 - decrease Eliquis to 2.5mg (patient >80yo)
Duoneb
Eliquis dose increased to 5mg since kidney function improved on diuresis
As per cardiology - most likely will need PPM reprogramming since it seems to be firing ventricular pacing with rapid atrial HR, showing asymptomatic VT pattern on tele
#Transaminitis with mild bilirubinemia
most likely 2/2 hepatic congestion
follow LFT
#Paroxysmal nocturnal dyspnea
most likely 2/2 CHF
Nocturnal O2 study
#HLD
#CAD
#GERD
#Chronic constipation
#Prostate CA
cont home meds and follow up with already established specialists
#Daily alcohol use without abuse
Counselled to stop
#b/l pulmonary subcentimeter nodules
stable since 2018
DVT ppx on Eliquis
Full code
I have spent at least 39min reviewing chart, test results, communication with consultants and direct patient care
Anticipated Discharge: 24 - 48 hours
Subjective/Interval History
-
Date of Service: June 04, 2024
Objective Data
-
Labs:
Laboratory Results
06/04/24
03:44
WBC 6.5
Hgb 12.3 L
Hct 35.2 L
Plt Count 200
Sodium 137
Potassium 3.8
Chloride 97 L
Carbon Dioxide 30
BUN 50 H
Creatinine 1.4 H
Glucose 94
Calcium 9.1
Vital Signs:
Vital Signs
Temp Pulse Resp BP Pulse Ox
98.7 F 114 18 113/92 97
06/04/24 10:53 06/04/24 10:52 06/04/24 10:53 06/04/24 10:52 06/04/24 10:53
I&O
06/03/24 06/04/24 06/05/24
06:59 06:59 06:59
Intake Total 939.6 / 939.6 966.5 / 966.5
Output Total 1775 / 1775
Balance 939.6 / 939.6 -808.5 / -808.5
Review of Systems
-
History Source: Patient
All other systems: Reviewed and negative
Physical Exam
-
General: No Apparent Distress
HEENT: Normocephalic, Atraumatic and Moist Mucous Membranes
Respiratory: Clear to Auscultation
GI: Soft, Nontender and Nondistended
Musculoskeletal: No Clubbing, No Cyanosis and No Edema
Neuro: Awake, Alert, Oriented and AO x 3
Psych: Calm
--- NOTE | 2024-06-04 12:52 | W.PN.NEPH.PH ---
Today's Communication / Plan
-
cont lasix and follow labs
Assessment/Plan
-
IMP:
Acute hypoxic respiratory failure, in the setting of acute HFrEF
ICM
HFrEF(30%), acute on chronic
JEREMIAS-cr 1.1 in 02/2024
ICD: Medtronic
Abnormal troponin
Persistent atrial fibrillation
CAD
Mild to moderate MR
Daily EtOH consumption
Prostate cancer
PLan:
Jeremias-mostly cardiorenal, had bland UA and non acute renal US in sep
Fena not low with lasix, follow bladder scan , pVR 150cc
continues with lasix IV 40mg IV BID
creatinine down to 1.4, weights down
BP are stable
off milrinone per cards
follow labs
d/w pt
-
-
Date of Service: June 04, 2024
CC / HPI / ROS
-
Chief Complaint:
JEREMIAS
History of Present Illness:
cr down to 1.4
Now off milrinone today
BP stable
wt is down
Review of Systems:
no fever
no cp
sob better and able to walk in halways
tachycardic iinto 120s sometimes
Labs
-
Labs:
WBC 6.5 10^3/uL (4.8-10.8) 06/04/24 03:44
RBC 3.86 10^6/uL (4.70-6.10) L 06/04/24 03:44
Hgb 12.3 g/dL (13.0-18.0) L 06/04/24 03:44
Hct 35.2 % (39.0-52.0) L 06/04/24 03:44
Plt Count 200 10^3/uL (130-400) 06/04/24 03:44
Sodium 137 mmol/L (135-145) 06/04/24 03:44
Potassium 3.8 mmol/L (3.5-5.1) 06/04/24 03:44
Chloride 97 mmol/L (98-107) L 06/04/24 03:44
Carbon Dioxide 30 mmol/L (22-30) 06/04/24 03:44
BUN 50 mg/dl (9-20) H 06/04/24 03:44
Creatinine 1.4 mg/dL (0.7-1.3) H 06/04/24 03:44
eGFR 50.18 06/04/24 03:44
Glucose 94 mg/dl (70-99) 06/04/24 03:44
Calcium 9.1 mg/dl (8.4-10.2) 06/04/24 03:44
Ntd-N-Qwngxoiqnck Pept 60715 pg/ml 05/30/24 08:39
Physical Exam
-
Vital Signs:
Vital Signs
Temp Pulse Resp BP Pulse Ox
98.7 F 114 18 113/92 97
06/04/24 10:53 06/04/24 10:52 06/04/24 10:53 06/04/24 10:52 06/04/24 10:53
Cardiovascular:: Regular rate and rhythm
Respiratory:: Bilateral: CTA
Lung Excursion:: Normal
Abdomen:: Nontender and Soft
Extremity Edema:: None: Bilateral:
Elizabeth Catheter: No
--- NOTE | 2024-06-04 13:00 | PTCARENOTE ---
Received patient at shift change. A paced on the monitor with PVCs, short bursts of SVT, notified Dr. Dominique. Milrinone stopped per order. Pt complained of fluttering in chest during SVT episode. VSS. Pt ambulating gomez with no complaints at this
time. Pt educated on plan of care, pt verbalizes understanding. Call dawson within reach.
[2024-06-04 13:21] LABS: ALT (SGPT) 101 U/L (0-50); AST (SGOT) 39 U/L (17-59); Albumin 3.6 g/dl (3.5-5.0); Alkaline Phosphatase 72 U/L (38-126); Direct Bilirubin 0.2 mg/dl (0.0-0.4); Total Bilirubin 1.5 mg/dl (0.2-1.3)
--- NOTE | 2024-06-04 14:14 | PTCARENOTE ---
Received patient at shift change. SB on the monitor. Pt ambulating in the hallway with no complaints at this time. Pt educated on plan of care, pt verbalizes understanding. Call dawson within reach.
[2024-06-04] MEDS: CORDARONE 103 MG IV (18:02)
[2024-06-04] MEDS: CORDARONE 518 MG IV (18:20)
--- NOTE | 2024-06-04 18:39 | PTCARENOTE ---
notified dr. nagy, dr. brown of pts hr in 120s, svt, vss. started amio per order see documentation. pt educated on plan of care and pt verbalized understanding. call dawson within reach.
[2024-06-04] MEDS: ELIQUIS 5 MG PO (21:11)
[2024-06-04] MEDS: COLACE 200 MG PO (21:12)
[2024-06-05] VITALS (7 sets, daily range): BP systolic 101–127; BP diastolic 78–94; BMI 25.9
[2024-06-05 04:08] LABS: % Basophils 0.6 % (0-2); % Eosinophils 2.6 % (0-6); % Immature Granulocytes 0.4 % (0-0.5); % Lymphocytes 14.6 % (20.5-51.1); % Neutrophils 71.8 % (42.2-75.2); Absolute Eosinophils 0.2 10^3/uL (0-0.7); Absolute Monocytes 0.7 10^3/uL (0.1-0.6); Hematocrit 36.8 % (39.0-52.0); Hemoglobin 12.6 g/dL (13.0-18.0); Mean Corp Hgb Conc. 34.2 g/dL (33.0-37.0); Mean Corpuscular Hgb 32.6 pg (27.0-31.0); Mean Corpuscular Volume 95.1 fL (80.0-94.0); Mean Platelet Volume 10.6 fL (7.4-10.4); Nucleated Red Blood Cells % 0 % (-); Platelet Count 184 10^3/uL (130-400); Red Blood Cell Count 3.87 10^6/uL (4.70-6.10); Red Cell Dist. Width 14.3 % (11.5-14.5)
[2024-06-05 04:27] LABS: Blood Urea Nitrogen 45 mg/dl (9-20); Carbon Dioxide 30 mmol/L (22-30); Chloride 96 mmol/L (98-107); Estimated Creatinine Clearance 42 ml/min; Glucose 97 mg/dl (70-99); Potassium 3.6 mmol/L (3.5-5.1); Sodium 138 mmol/L (135-145); eGFR 46.19
[2024-06-05] MEDS: THERAGRAN 1 TABLET PO (08:16)
[2024-06-05] MEDS: ZETIA 10 MG PO (08:17)
[2024-06-05] MEDS: PACERONE 200 MG PO ×2 (08:17→19:38)
[2024-06-05] MEDS: LIPITOR 40 MG PO (08:17)
[2024-06-05] MEDS: ELIQUIS 5 MG PO ×2 (08:17→19:38)
[2024-06-05] MEDS: ASPIR LOW (ENTERIC COATED) 81 MG PO (08:17)
[2024-06-05] MEDS: MIRALAX 17 GRAMS PO (08:18)
[2024-06-05] MEDS: LASIX IV ×2 (08:18→08:52)
--- NOTE | 2024-06-05 08:47 | W.PN.CD ---
Today's Communication / Plan
-
cont IV amiodarone, trend tele
increase IV lasix to 80mg IV bid
trend Cr, has been 1.4-1.5, may need to adjust eliquis dose again
Impression / Plan
-
BACKGROUND: 84M CAD s/p PCI (2014) persistent atrial fibrillation (PVI 05/2019, SSS s/p MDT PPM, ICM with ICD (previously 20%), and prostate cancer (watchful waiting), who presented to the emergency department with chief complaint of shortness of
breath.
OUTSIDE SALES ACCOUNT MANAGER: Dr. Levy
ICM/HFrEF (EF 30%), acute on chronic, severe, with low cardiac index requiring milrinone this admission, and cardiorenal syndrome
-He reports orthopnea and shortness of breath which are improving since admission
-Lowest documented LVEF 20% in 2018
-milrinone stopped 06/04
-GDMT as tolerated
-Beta-efrain: Hold beta-efrain given that we think he has low output. Resume as tolerated.
-SGLT2: Jardiance 10 mg daily stopped during prior hospitalization
-ACEI/ARB: Sacubitril/valsartan 49-51 mg BID stopped during prior hospitalization
-MRA: Spironolactone 25mg stopped during prior hospitalization
-ICD: Medtronic
-Continue hold nephrotoxic medications
-with milrinone off, he may need higher lasix dose: increase to 80mg IV bid
Persistent atrial fibrillation s/p PVI 03/21/24
-Continue amiodarone: currently on IV and PO for recurrent atrial arrhythmia
-EP eval in AM
-mostly in sinus (AV pacing)
-Oral Anticoagulation: Apixaban, Cr has been 1.4-1.5-->trend for another day before changing dose again
-[id number]: score at least 5 (Heart failure, HTN, age 75 or more, Vascular disease)
CAD
-Stable without angina
-2014 stress test ordered for shortness of breath -> JOMAR RCA & LCx, continues on ASA
LUCIO on CKD
-Nephrology following; nephrotoxic medications being held.
-Improved with diuresis
Abnormal troponin, nonischemic myocardial injury in the setting of acute heart failure and LUCIO
Medtronic ICD, interrogate
Prediabetes, HgbA1c 5.7%
Former smoker, continued cessation recommended
Prostate cancer, watchful waiting
Subjective: feeling overall better, with some orthopnea at night still
RHC (05/31/24):
RA: 18
RV: 46/22
PA: 46/37
PCWP: 33
Oximetry: Ao 96%, PA 44%, cardiac output 2.8, cardiac index 1.3
Physical Exam
Vital Signs/Labs
Vital Signs
Temp Pulse Resp BP Pulse Ox
98.2 F 89 20 122/92 97
06/05/24 08:06 06/05/24 08:17 06/05/24 08:06 06/05/24 08:18 06/05/24 08:06
06/04/24 06/05/24 06/06/24
06:59 06:59 06:59
Actual Weight 85.7 kg 86.4 kg
06/05/24 03:23
06/05/24 03:23
Magnesium 2.1 mg/dl (1.6-2.3) 06/04/24 03:44
TSH 1.96 uIU/ml (0.47-4.68) 05/31/24 06:34
05/30/24
08:39
Fak-W-Zauxwsfocgm Pept [id number]
Physical Exam
Constitutional: No acute distress
EENT: Moist mucous membranes
Cardiovascular: Rhythm & rate is regular, Pedal edema is absent, Systolic murmur absent and JVD present
Respiratory: Respiratory effort normal and Lungs clear to auscul.
Neuro/Psych: AO x 3
Data Reviewed
-
Date of Service: June 05, 2024
EKG: Other (Tele: AV paced, with occasional V pacing of suspected SVT)
Labs: Labs Reviewed by me
[2024-06-05] MEDS: LASIX 80 MG IV ×2 (08:57→15:49)
--- NOTE | 2024-06-05 11:47 | W.PN.NEPH.PH ---
Today's Communication / Plan
-
monitor labs
Assessment/Plan
-
IMP:
Acute hypoxic respiratory failure, in the setting of acute HFrEF
ICM
HFrEF(30%), acute on chronic
JEREMIAS-cr 1.1 in 02/2024
ICD: Medtronic
Abnormal troponin
Persistent atrial fibrillation
CAD
Mild to moderate MR
Daily EtOH consumption
Prostate cancer
PLan:
Jeremias-mostly cardiorenal, had bland UA and non acute renal US in sep
Fena not low with lasix, follow bladder scan , pVR 150cc
lasix increased to 80mg IV BID per cards
creatinine relatively stable at 1.5, weights up but not accurate done late
BP are stable
off milrinone and on Amio gtt per cards
follow labs
d/w pt
-
-
Date of Service: June 05, 2024
CC / HPI / ROS
-
Chief Complaint:
JEREMIAS
History of Present Illness:
cr up at 1.5
Now off milrinone, Amio gtt started for afib
BP stable
wt is up but checked post breakfast
Review of Systems:
no fever
no cp
sob better and able to walk in halways
constipation
Labs
-
Labs:
WBC 7.0 10^3/uL (4.8-10.8) 06/05/24 03:23
RBC 3.87 10^6/uL (4.70-6.10) L 06/05/24 03:23
Hgb 12.6 g/dL (13.0-18.0) L 06/05/24 03:23
Hct 36.8 % (39.0-52.0) L 06/05/24 03:23
Plt Count 184 10^3/uL (130-400) 06/05/24 03:23
Sodium 138 mmol/L (135-145) 06/05/24 03:23
Potassium 3.6 mmol/L (3.5-5.1) 06/05/24 03:23
Chloride 96 mmol/L (98-107) L 06/05/24 03:23
Carbon Dioxide 30 mmol/L (22-30) 06/05/24 03:23
BUN 45 mg/dl (9-20) H 06/05/24 03:23
Creatinine 1.5 mg/dL (0.7-1.3) H 06/05/24 03:23
eGFR 46.19 06/05/24 03:23
Glucose 97 mg/dl (70-99) 06/05/24 03:23
Calcium 9.0 mg/dl (8.4-10.2) 06/05/24 03:23
Gis-F-Gqmfkuujhoz Pept 02390 pg/ml 05/30/24 08:39
Albumin 3.6 g/dl (3.5-5.0) 06/04/24 03:44
Physical Exam
-
Vital Signs:
Vital Signs
Temp Pulse Resp BP Pulse Ox
98.2 F 87 20 122/92 97
06/05/24 08:06 06/05/24 08:57 06/05/24 08:06 06/05/24 08:57 06/05/24 08:06
Cardiovascular:: Regular rate and rhythm (tachy)
Lung Excursion:: Normal (decreased bilat)
Abdomen:: Nontender and Soft
Extremity Edema:: None: Bilateral:
Elizabeth Catheter: No
--- NOTE | 2024-06-05 12:18 | W.PN.HOSP.TC ---
Today's Communication/Plan
-
cont diuresis and amio drip pending further cardio eval
Assessment / Plan
Assessment / Plan
84yo M with HFrEF, A.fib s/p ablation, CKD stage 3a, CAD, prostate CA, recent admission for CHF exacerbation complicated by hypotension, discharged on Lasix 40mg and stopped Entresto and Aldactone on last discharge, came with worsening nocturnal
SOB, managed for CHF exacerbation with cardiorenal syndrome, developed tachycardia and was placed on amiodarone drip, planned to be seen by EP cardiology on 06/05/24
A/P:
#Orthopnea
#Acute on chronic HFrEF exacerbation s/p ICD
#Permanent Afib on Eliquis s/p PPM with episodes of PSVT
#Atrial senced ventricular paced rhythm with episodes of tachycardia
#LUCIO, cannot exclude cardiorenal syndrome
RHC on 05/31/24 with elevated filling presures and low cardiac index - cardiology started aggressive diuresis with Milrinone and Lasix
Recent Echo with EF 30%
Cont daily weight and follow electrolytes
Follow BMP - Cr increased to 2.5 from 1.5 6 days ago
Telemetry
Low sodium diet and fluid restriction
TSH WNL
With worsened kidney function - Cr since last admission not <1.5 - decrease Eliquis to 2.5mg (patient >80yo)
Duoneb
Eliquis dose increased to 5mg since kidney function improved on diuresis
As per cardiology - most likely will need PPM reprogramming since it seems to be firing ventricular pacing with rapid atrial HR, showing asymptomatic VT pattern on tele - planned to be seen by EP cardio on 06/05/24, meanwhile on Amio drip
#Transaminitis with mild bilirubinemia
most likely 2/2 hepatic congestion
follow LFT
#Paroxysmal nocturnal dyspnea
most likely 2/2 CHF
Nocturnal O2 study
#HLD
#CAD
#GERD
#Chronic constipation
#Prostate CA
cont home meds and follow up with already established specialists
#Daily alcohol use without abuse
Counselled to stop
#b/l pulmonary subcentimeter nodules
stable since 2018
DVT ppx on Eliquis
Full code
I have spent at least 39min reviewing chart, test results, communication with consultants and direct patient care
Anticipated Discharge: 24 - 48 hours
Subjective/Interval History
-
Date of Service: June 05, 2024
Objective Data
-
Labs:
Laboratory Results
06/05/24
03:23
WBC 7.0
Hgb 12.6 L
Hct 36.8 L
Plt Count 184
Sodium 138
Potassium 3.6
Chloride 96 L
Carbon Dioxide 30
BUN 45 H
Creatinine 1.5 H
Glucose 97
Calcium 9.0
Vital Signs:
Vital Signs
Temp Pulse Resp BP Pulse Ox
97.7 F 87 20 122/92 97
06/05/24 12:15 06/05/24 08:57 06/05/24 12:15 06/05/24 08:57 06/05/24 12:15
I&O
06/04/24 06/05/24 06/06/24
06:59 06:59 06:59
Intake Total 966.5 / 966.5 600 / 600 480 / 480
Output Total 1775 / 1775 950 / 950
Balance -808.5 / -808.5 -350 / -350 480 / 480
Review of Systems
-
All other systems: Reviewed and negative
Constitutional: Reports No Symptoms
Physical Exam
-
General: No Apparent Distress
HEENT: Normocephalic and Atraumatic
Respiratory: Clear to Auscultation; Negative Wheezes
GI: Soft, Nontender and Nondistended
Skin: Warm
Neuro: Awake, Alert, Oriented and AO x 3
Psych: Calm
--- NOTE | 2024-06-05 18:01 | PTCARENOTE ---
pt continues to be paced on on the monitor, hr in the 90-120, vss. pt offers no complaints at this time. pt educated on plan of care and pt verbalized understanding. pt has been oob to chair for most of the day and tolerating well. amio gtt running
per protocol. call dawson within reach.
[2024-06-06] VITALS (14 sets, daily range): BP systolic 95–127; BP diastolic 68–99; PULSE 81–91; O2SAT 96–97; BMI 25.7
--- NOTE | 2024-06-06 01:28 | PTCARENOTE ---
Pt. V-paced when tachy (100-120's), AV paced when rate normal (80's-90's). No complaints of SOB, ambulates without difficulty around unit. Voiding clear yellow urine into urinal. Currently sleeping.
[2024-06-06] MEDS: SENOKOT-S 1 TABLET PO ×2 (02:33→19:55)
[2024-06-06 02:59] LABS: % Basophils 0.7 % (0-2); % Immature Granulocytes 0.4 % (0-0.5); % Lymphocytes 19.6 % (20.5-51.1); % Monocytes 7.8 % (1.7-9.3); % Neutrophils 69.5 % (42.2-75.2); Absolute Basophils 0.1 10^3/uL (0-0.2); Absolute Eosinophils 0.2 10^3/uL (0-0.7); Absolute Lymphocytes 1.5 10^3/uL (1.2-3.4); Absolute Monocytes 0.6 10^3/uL (0.1-0.6); Absolute Neutrophils 5.3 10^3/uL (1.4-6.5); Hemoglobin 13.3 g/dL (13.0-18.0); Mean Corp Hgb Conc. 34.1 g/dL (33.0-37.0); Mean Corpuscular Volume 93.8 fL (80.0-94.0); Mean Platelet Volume 10.2 fL (7.4-10.4); Nucleated Red Blood Cells % 0 % (-); Platelet Count 213 10^3/uL (130-400); Red Blood Cell Count 4.16 10^6/uL (4.70-6.10); Red Cell Dist. Width 14.6 % (11.5-14.5); White Blood Cell Count 7.6 10^3/uL (4.8-10.8)
[2024-06-06 03:16] LABS: Blood Urea Nitrogen 45 mg/dl (9-20); Calcium 9.1 mg/dl (8.4-10.2); Carbon Dioxide 35 mmol/L (22-30); Chloride 92 mmol/L (98-107); Estimated Creatinine Clearance 37 ml/min; Glucose 87 mg/dl (70-99); Potassium 3.6 mmol/L (3.5-5.1); Sodium 138 mmol/L (135-145); eGFR 39.75
[2024-06-06] MEDS: PACERONE 200 MG PO ×2 (08:28→19:44)
[2024-06-06] MEDS: LIPITOR 40 MG PO (08:28)
[2024-06-06] MEDS: THERAGRAN 1 TABLET PO (08:28)
[2024-06-06] MEDS: ASPIR LOW (ENTERIC COATED) 81 MG PO (08:28)
[2024-06-06] MEDS: ZETIA 10 MG PO (08:29)
[2024-06-06] MEDS: FLUSH (NSS) 2 FLUSH IV (08:29)
[2024-06-06] MEDS: LASIX 80 MG IV (08:33)
[2024-06-06] MEDS: ELIQUIS 2.5 MG PO ×2 (08:33→19:44)
--- NOTE | 2024-06-06 09:12 | W.PN.HOSP.TC ---
Today's Communication/Plan
-
follow EP cardio recommendations
-1.5L and lost 1 lbs overnight - diuresis as per cardio
Assessment / Plan
Assessment / Plan
84yo M with HFrEF, A.fib s/p ablation, CKD stage 3a, CAD, prostate CA, recent admission for CHF exacerbation complicated by hypotension, discharged on Lasix 40mg and stopped Entresto and Aldactone on last discharge, came with worsening nocturnal
SOB, managed for CHF exacerbation with cardiorenal syndrome, developed tachycardia at rest and was placed on amiodarone drip, planned to be seen by EP cardiology on 06/05/24
A/P:
#Orthopnea
#Acute on chronic HFrEF exacerbation s/p ICD
#Permanent Afib on Eliquis s/p PPM with episodes of PSVT
#Atrial senced ventricular paced rhythm with episodes of tachycardia
#LUCIO, cannot exclude cardiorenal syndrome
RHC on 05/31/24 with elevated filling presures and low cardiac index - cardiology started aggressive diuresis with Milrinone and Lasix
Recent Echo with EF 30%
Cont daily weight and follow electrolytes
Follow BMP - Cr increased to 2.5 from 1.5 6 days ago
Telemetry
Low sodium diet and fluid restriction
TSH WNL
With worsened kidney function - Cr since last admission mostly >1.5 - decrease Eliquis to 2.5mg (patient >80yo)
Duoneb
Eliquis dose increased to 5mg since kidney function improved on diuresis
As per cardiology - most likely will need PPM reprogramming since it seems to be firing ventricular pacing with rapid atrial HR, showing asymptomatic VT pattern on tele - planned to be seen by EP cardio on 06/05/24, meanwhile on Amio drip
#Transaminitis with mild indirect bilirubinemia
Minimal LDH elevation with no significant anemia - no concern for hemolysis
most likely 2/2 hepatic congestion
follow LFT
#Paroxysmal nocturnal dyspnea
most likely 2/2 CHF since resolving with diuresis
Outpatient sleep study
#HLD
#CAD
#GERD
#Chronic constipation
#Prostate CA
cont home meds and follow up with already established specialists
#Daily alcohol use without abuse
Counselled to stop
#b/l pulmonary subcentimeter nodules
stable since 2018
DVT ppx on Eliquis
Full code
I have spent at least 39min reviewing chart, test results, communication with consultants and direct patient care
Anticipated Discharge: 24 - 48 hours
Subjective/Interval History
-
Date of Service: June 06, 2024
Objective Data
-
Labs:
Laboratory Results
06/06/24
02:29
WBC 7.6
Hgb 13.3
Hct 39.0
Plt Count 213
Sodium 138
Potassium 3.6
Chloride 92 L
Carbon Dioxide 35 H
BUN 45 H
Creatinine 1.7 H
Glucose 87
Calcium 9.1
Vital Signs:
Vital Signs
Temp Pulse Resp BP Pulse Ox
97.9 F 109 16 101/68 95
06/06/24 08:26 06/06/24 04:00 06/06/24 08:26 06/06/24 08:27 06/06/24 08:26
I&O
06/05/24 06/06/24 06/07/24
06:59 06:59 06:59
Intake Total 600 / 600 1200 / 1200
Output Total 950 / 950 1350 / 1350
Balance -350 / -350 -150 / -150
Review of Systems
-
History Source: Patient
All other systems: Reviewed and negative
Physical Exam
-
General: No Apparent Distress
HEENT: Normocephalic
Respiratory: Clear to Auscultation
Cardiac: Regular Rhythm and Tachycardic (at rest)
GI: Soft, Nontender and Nondistended
Musculoskeletal: No Clubbing, No Cyanosis and No Edema
Neuro: Awake, Alert, Oriented and AO x 3
Psych: Calm
--- NOTE | 2024-06-06 09:44 | PTCARENOTE ---
Received patient this morning resting in bed, offers no complaints. 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 Grant would be seeing him today. Continued IV diuresis with IV lasix, reinforced to save urine in urinal for accurate I&O.
--- NOTE | 2024-06-06 09:55 | W.PN.NEPH.PH ---
Today's Communication / Plan
-
po lasix
Assessment/Plan
-
IMP:
Acute hypoxic respiratory failure, in the setting of acute HFrEF
ICM
HFrEF(30%), acute on chronic
LUCIO-cr 1.1 in 02/2024
ICD: Medtronic
Abnormal troponin
Persistent atrial fibrillation
CAD
Mild to moderate MR
Daily EtOH consumption
Prostate cancer
Plan:
follow BMP
change to po lasix
may need to accept higher Cr values
-
-
Date of Service: June 06, 2024
CC / HPI / ROS
-
Chief Complaint:
LUCIO
History of Present Illness:
LUCIO/Cr up to 1.7
Now off milrinone, Amio gtt
po amio for Afib
BP stable
weights stable
Review of Systems:
no fever
no cp
no SOB
no supplemental O2
Labs
-
Labs:
WBC 7.6 10^3/uL (4.8-10.8) 06/06/24 02:29
RBC 4.16 10^6/uL (4.70-6.10) L 06/06/24 02:29
Hgb 13.3 g/dL (13.0-18.0) 06/06/24 02:29
Hct 39.0 % (39.0-52.0) 06/06/24 02:29
Plt Count 213 10^3/uL (130-400) 06/06/24 02:29
Sodium 138 mmol/L (135-145) 06/06/24 02:29
Potassium 3.6 mmol/L (3.5-5.1) 06/06/24 02:
Chloride 92 mmol/L (98-107) L 06/06/24 02:29
Carbon Dioxide 35 mmol/L (22-30) H 06/06/24 02:29
BUN 45 mg/dl (9-20) H 06/06/24 02:29
Creatinine 1.7 mg/dL (0.7-1.3) H 06/06/24 02:29
eGFR 39.75 06/06/24 02:29
Glucose 87 mg/dl (70-99) 06/06/24 02:29
Calcium 9.1 mg/dl (8.4-10.2) 06/06/24 02:29
Dwc-J-Xojlorgbzyu Pept 96064 pg/ml 05/30/24 08:39
Albumin 3.6 g/dl (3.5-5.0) 06/04/24 03:44
Physical Exam
-
Vital Signs:
Vital Signs
Temp Pulse Resp BP Pulse Ox
97.9 F 109 16 101/68 95
06/06/24 08:26 06/06/24 04:00 06/06/24 08:26 06/06/24 08:27 06/06/24 08:26
Cardiovascular:: Regular rate and rhythm
Respiratory:: Bilateral: CTA
Lung Excursion:: Normal
Abdomen:: Nontender and Soft
Bowel Sounds:: Normal
Extremity Edema:: None: Bilateral:
--- NOTE | 2024-06-06 14:00 | W.PN.CD ---
Today's Communication / Plan
-
- ICD re-programmed
- Heart rates are better
- Lasix from BID to QD
- Eliquis dose reduce to 2.5 mg BID for now.
- Keep on telemetry for a day to assess the effect of ICD reprogramming before discharge.
Impression / Plan
-
BACKGROUND: 84M CAD s/p PCI (2015) persistent atrial fibrillation (PVI 05/2019, SSS s/p MDT PPM, ICM with ICD (previously 20%), and prostate cancer (watchful waiting), who presented to the emergency department with chief complaint of shortness of
breath.
J2EE ANDROID DEVELOPER: Dr. Levy
ICM/HFrEF (EF 30%), acute on chronic, severe, with low cardiac index requiring milrinone this admission, and cardiorenal syndrome
-He reports orthopnea and shortness of breath which are improving since admission
-Lowest documented LVEF 20% in 2018
-milrinone stopped 06/04
-GDMT as tolerated
-Beta-efrain: Hold beta-efrain given that we think he has low output. Resume as tolerated.
-SGLT2: Jardiance 10 mg daily stopped during prior hospitalization
-ACEI/ARB: Sacubitril/valsartan 49-51 mg BID stopped during prior hospitalization
-MRA: Spironolactone 25mg stopped during prior hospitalization
-ICD: Medtronic
-Continue hold nephrotoxic medications
-with milrinone off, he may need higher lasix dose- 80mg PO bid
Persistent atrial fibrillation s/p PVI 03/21/24
-Continue amiodarone: currently on IV and PO for recurrent atrial arrhythmia
-ICD was interrogated. No significant arrhythmias noted. Patient has frequent PACs and atrial preferential pacing prompted high atrial rates
- ICD is re-programmed today - MVP is turned on and the preferential atrial pacing is turned off. He is now atrial pacing as needed.
-Heart rate has come down and is expected to improve cardiac output with enhanced filling and effective contractility.
-mostly in sinus (AV pacing)
-Oral Anticoagulation: Apixaban, Cr has been 1.4-1.7-->Eliquis is changed to 2.5 mg BID.
-[id number]: score at least 5 (Heart failure, HTN, age 75 or more, Vascular disease)
CAD
-Stable without angina
-2014 stress test ordered for shortness of breath -> JOMAR RCA & LCx, continues on ASA
LUCIO on CKD
-Nephrology following; nephrotoxic medications being held.
-Cr is rising now
- Lasix from IV to PO now.
Abnormal troponin, nonischemic myocardial injury in the setting of acute heart failure and LUCIO
Medtronic ICD, interrogate
Prediabetes, HgbA1c 5.7%
Former smoker, continued cessation recommended
Prostate cancer, watchful waiting
Subjective: feeling overall better, with some orthopnea at night still
RHC (05/31/24):
RA: 18
RV: 46/22
PA: 46/37
PCWP: 33
Oximetry: Ao 96%, PA 44%, cardiac output 2.8, cardiac index 1.3
Physical Exam
Vital Signs/Labs
Vital Signs
Temp Pulse Resp BP Pulse Ox
98.3 F 86 18 108/80 95
06/06/24 11:51 06/06/24 12:00 06/06/24 11:51 06/06/24 11:53 06/06/24 11:51
06/05/24 06/06/24 06/07/24
06:59 06:59 06:59
Actual Weight 86.4 kg 85.8 kg
06/06/24 02:29
06/06/24 02:29
Magnesium 2.1 mg/dl (1.6-2.3) 06/04/24 03:44
TSH 1.96 uIU/ml (0.47-4.68) 05/31/24 06:34
05/30/24
08:39
Njn-N-Gnuncpypgzv Pept [id number]
Physical Exam
Constitutional: No acute distress and Comfortable
EENT: Anicteric and Moist mucous membranes
Cardiovascular: Rhythm & rate is regular, Pedal edema is absent and JVD pressure is normal
Respiratory: Respiratory effort normal, Lungs clear to auscul., Wheeze Absent and Crackles Absent
GI: Soft, Distention absent, Non tender and Normal bowel sounds
Neuro/Psych: Alert, Oriented and AO x 3
Data Reviewed
-
Date of Service: June 06, 2024
Medical Decision Making: Reviewed Test Results, Independent Historian Assessment, Test Interpretation and Review of Case with other Provider
EKG: Tracing Personally Visualized and interpreted
Echo: Report Reviewed by me
Labs: Labs Reviewed by me
Old Records: Reviewed
--- NOTE | 2024-06-06 14:10 | W.CARD.DEVCH ---
Cardiac Device Check
-
Device: Implanted Cardioverter-Defibrillator
Boom Stick Worker: [employer]
The patient's device was interrogated with assistance of the device client care representative followed by a complete physician review. The device had normal function. No abnormalities seen.
the ICD was reprogrammed to limit the atrial pacing to as needed.
--- NOTE | 2024-06-06 14:28 | CM ---
Reviewed chart. Met with Mr. Patel to review discharge plans. He states he is feeling better and maybe able to go home soon. We reviewed [facility] and he is agreeable to [facility]. Prior to admission he resides with his
spouse in a one story home with one step to enter. He does not have any DME in the home. He has a prescription plan and uses [facility]. Medical work-up in progress. The discharge plan is to return home with his spouse and [facility] when medically stable.
[2024-06-06] MEDS: COLACE 200 MG PO (19:55)
[2024-06-07 03:40] VITALS: BP 107/75
[2024-06-07 03:55] VITALS: BMI 25.7
[2024-06-07 04:21] LABS: ALT (SGPT) 56 U/L (0-50); AST (SGOT) 27 U/L (17-59); Albumin 3.5 g/dl (3.5-5.0); Alkaline Phosphatase 64 U/L (38-126); Blood Urea Nitrogen 43 mg/dl (9-20); Calcium 8.8 mg/dl (8.4-10.2); Carbon Dioxide 31 mmol/L (22-30); Chloride 96 mmol/L (98-107); Estimated Creatinine Clearance 42 ml/min; Glucose 83 mg/dl (70-99); Potassium 3.5 mmol/L (3.5-5.1); Sodium 137 mmol/L (135-145); Total Bilirubin 1.5 mg/dl (0.2-1.3); Total Protein 5.9 g/dl (6.3-8.2); eGFR 46.19
[2024-06-07 04:36] LABS: % Immature Granulocytes 0.4 % (0-0.5); % Lymphocytes 20.8 % (20.5-51.1); % Monocytes 9.1 % (1.7-9.3); % Neutrophils 65.7 % (42.2-75.2); Absolute Basophils 0.1 10^3/uL (0-0.2); Absolute Eosinophils 0.2 10^3/uL (0-0.7); Absolute Monocytes 0.5 10^3/uL (0.1-0.6); Absolute Neutrophils 3.3 10^3/uL (1.4-6.5); Hematocrit 34.9 % (39.0-52.0); Mean Corp Hgb Conc. 34.4 g/dL (33.0-37.0); Mean Corpuscular Volume 93.1 fL (80.0-94.0); Mean Platelet Volume 10.5 fL (7.4-10.4); Nucleated Red Blood Cells % 0 % (-); Platelet Count 175 10^3/uL (130-400); Red Blood Cell Count 3.75 10^6/uL (4.70-6.10); Red Cell Dist. Width 14.2 % (11.5-14.5)
--- NOTE | 2024-06-07 08:00 | W.PN.CD ---
Today's Communication / Plan
-
- Restart Toprol 12.5 mg QD
- Hold Aldactone for now
- Eliquis 2,5 mg BID for now. - recheck lytes in a week.
- Stable for discharge from cardiac stand point.
Impression / Plan
-
BACKGROUND: 84M CAD s/p PCI (2014) persistent atrial fibrillation (PVI 05/2019, SSS s/p MDT PPM, ICM with ICD (previously 20%), and prostate cancer (watchful waiting), who presented to the emergency department with chief complaint of shortness of
breath.
TRAINING REPRESENTATIVE: Dr. Levy
ICM/HFrEF (EF 30%), acute on chronic, severe, with low cardiac index requiring milrinone this admission, and cardiorenal syndrome
-He reports orthopnea and shortness of breath which are improving since admission
-Lowest documented LVEF 20% in 2018
-milrinone stopped 06/04
-GDMT as tolerated
-Beta-efrain: Hold beta-efrain given that we think he has low output. Resume 12.5 mg QD.
-SGLT2: Jardiance 10 mg daily stopped during prior hospitalization
-ACEI/ARB: Sacubitril/valsartan 49-51 mg BID stopped during prior hospitalization
-MRA: Spironolactone 25mg stopped during prior hospitalization - LUCIO
-ICD: Medtronic
-Continue hold nephrotoxic medications
-with milrinone off, he may need higher lasix dose- 80mg PO - changed to QD now for discharge
Persistent atrial fibrillation s/p PVI 03/21/24
-Continue amiodarone: currently on IV and PO for recurrent atrial arrhythmia
-ICD was interrogated. No significant arrhythmias noted. Patient has frequent PACs and atrial preferential pacing prompted high atrial rates
- ICD is re-programmed today - MVP is turned on and the preferential atrial pacing is turned off. He is now atrial pacing as needed.
-Heart rate has come down and is expected to improve cardiac output with enhanced filling and effective contractility.
-mostly in sinus (AV pacing)
-Oral Anticoagulation: Apixaban, Cr has been 1.4-1.5-->Eliquis is changed to 2.5 mg BID.
-[id number]: score at least 5 (Heart failure, HTN, age 75 or more, Vascular disease)
-Recheck renal function in a week and if Cr is <1.5 then the Eliquis dose can be adjusted to 5 mg BID again.
CAD
-Stable without angina
-2014 stress test ordered for shortness of breath -> JOMAR RCA & LCx, continues on ASA
LUCIO on CKD
-Nephrology following; nephrotoxic medications being held.
-Cr had gone up to 1.7 on 06/06 but has come down to 1.5 today with improved rates and contraction.
- Lasix from IV to PO now.
Abnormal troponin, nonischemic myocardial injury in the setting of acute heart failure and LUCIO
Medtronic ICD, interrogate
Prediabetes, HgbA1c 5.7%
Former smoker, continued cessation recommended
Prostate cancer, watchful waiting
Subjective: feeling overall better, no active complaints.
RHC (05/31/24):
RA: 18
RV: 46/22
PA: 46/37
PCWP: 33
Oximetry: Ao 96%, PA 44%, cardiac output 2.8, cardiac index 1.3
Physical Exam
Vital Signs/Labs
Vital Signs
Temp Pulse Resp BP Pulse Ox
98.1 F 50 16 107/75 99
06/07/24 03:42 06/07/24 06:00 06/07/24 03:42 06/07/24 03:40 06/07/24 03:42
06/06/24 06/07/24 06/08/24
06:59 06:59 06:59
Actual Weight 85.8 kg 85.8 kg
06/07/24 03:48
06/07/24 03:48
Magnesium 2.1 mg/dl (1.6-2.3) 06/04/24 03:44
TSH 1.96 uIU/ml (0.47-4.68) 05/31/24 06:34
05/30/24
08:39
Yfd-[id number]-Aakhrhifbzt Pept [id number]
Physical Exam
Constitutional: No acute distress and Comfortable
EENT: Anicteric and Moist mucous membranes
Cardiovascular: Rhythm & rate is regular, Pedal edema is absent, JVD pressure is normal and Systolic murmur absent
Respiratory: Respiratory effort normal, Lungs clear to auscul., Wheeze Absent and Crackles Absent
GI: Soft, Distention absent, Non tender and Normal bowel sounds
Neuro/Psych: Alert, Oriented and AO x 3
Data Reviewed
-
Date of Service: June 07, 2024
Medical Decision Making: Reviewed Test Results and Independent Historian Assessment
EKG: Tracing Personally Visualized and interpreted
Echo: Report Reviewed by me
Labs: Labs Reviewed by me
Old Records: Reviewed
[2024-06-07] MEDS: LASIX 80 MG PO (08:29)
[2024-06-07] MEDS: THERAGRAN 1 TABLET PO (08:29)
[2024-06-07] MEDS: ZETIA 10 MG PO (08:29)
[2024-06-07] MEDS: ASPIR LOW (ENTERIC COATED) 81 MG PO (08:29)
[2024-06-07] MEDS: PACERONE 200 MG PO (08:29)
[2024-06-07] MEDS: LIPITOR 40 MG PO (08:29)
[2024-06-07] MEDS: ELIQUIS 2.5 MG PO (08:29)
[2024-06-07 08:52] VITALS: BP 113/66
--- NOTE | 2024-06-07 10:19 | W.PN.NEPH.PH ---
Today's Communication / Plan
-
follow BMP
Assessment/Plan
-
IMP:
Acute hypoxic respiratory failure, in the setting of acute HFrEF
ICM
HFrEF(30%), acute on chronic
LUCIO-cr 1.1 in 02/2024
ICD: Medtronic
Abnormal troponin
Persistent atrial fibrillation
CAD
Mild to moderate MR
Daily EtOH consumption
Prostate cancer
Plan:
follow BMP
po lasix
may need to accept higher Cr values
dc planning
-
-
Date of Service: June 07, 2024
CC / HPI / ROS
-
Chief Complaint:
LUCIO
History of Present Illness:
LUCIO/Cr down to 1.5
po amio for Afib
BP stable
weights stable
Review of Systems:
no fever
no cp
no SOB
no supplemental O2
Labs
-
Labs:
WBC 5.0 10^3/uL (4.8-10.8) 06/07/24 03:48
RBC 3.75 10^6/uL (4.70-6.10) L 06/07/24 03:48
Hgb 12.0 g/dL (13.0-18.0) L 06/07/24 03:48
Hct 34.9 % (39.0-52.0) L 06/07/24 03:48
Plt Count 175 10^3/uL (130-400) 06/07/24 03:48
Sodium 137 mmol/L (135-145) 06/07/24 03:48
Potassium 3.5 mmol/L (3.5-5.1) 06/07/24 03:48
Chloride 96 mmol/L (98-107) L 06/07/24 03:48
Carbon Dioxide 31 mmol/L (22-30) H 06/07/24 03:48
BUN 43 mg/dl (9-20) H 06/07/24 03:48
Creatinine 1.5 mg/dL (0.7-1.3) H 06/07/24 03:48
eGFR 46.19 06/07/24 03:48
Glucose 83 mg/dl (70-99) 06/07/24 03:48
Calcium 8.8 mg/dl (8.4-10.2) 06/07/24 03:48
Lmq-K-Lyjnyeyodxx Pept 37620 pg/ml 05/30/24 08:39
Albumin 3.5 g/dl (3.5-5.0) 06/07/24 03:48
Physical Exam
-
Vital Signs:
Vital Signs
Temp Pulse Resp BP Pulse Ox
98.3 F 58 16 113/66 98
06/07/24 08:54 06/07/24 08:52 06/07/24 08:54 06/07/24 08:52 06/07/24 08:54
Cardiovascular:: Regular rate and rhythm
Respiratory:: Bilateral: CTA
Lung Excursion:: Normal
Abdomen:: Nontender and Soft
Bowel Sounds:: Normal
Extremity Edema:: None: Bilateral:
--- NOTE | 2024-06-07 10:23 | PTCARENOTE ---
Patient up walking in hallway and siting in chair. VSS, call dawson in reach
[2024-06-07 12:26] VITALS: BP 133/84
--- NOTE | 2024-06-07 13:11 | W.DS.TRANS ---
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
-
Discharge Instructions:
Sleep Apnea Risk Low
Discharge Diagnosis/Procedures cardiac catheterization
CHF
Diet 2 Gram Sodium
Instructions: *CBC Heart Failure Instructions
Stand-Alone Forms: DC Instructions- Cath/EP Lab
Changes to Home Medications: Yes
Discharge Medications:
DC Medications w/original date entered in [facility]
cholecalciferol (vitamin D3) 25 mcg (1,000 unit) capsule (Vitamin D3) 2,000 unit PO DAILY Supplement 02/16/15
ezetimibe 10 mg tablet 10 mg PO DAILY High cholesterol 02/16/15
aspirin 81 mg tablet,delayed release 81 mg PO DAILY Blood clot prevention/tx 06/27/19
coenzyme Q10 200 mg capsule (Co Q-10) 200 mg PO DAILY Supplement 06/27/19
atorvastatin 40 mg tablet 40 mg PO DAILY High Cholesterol 03/12/22
multivitamin 1 tab PO DAILY Supplement 03/11/24
amiodarone 200 mg tablet 200 mg PO BID Heart disease/condition #180 tabs 05/25/24
docusate sodium 100 mg capsule (Colace) 200 mg PO HSPRN PRN constipation 05/30/24
apixaban 5 mg tablet (Eliquis) 2.5 mg (1/2 x 5 mg) PO BID #60 tabs 06/07/24
furosemide 80 mg tablet 80 mg PO DAILY #30 tabs 06/07/24
metoprolol succinate 25 mg tablet,extended release 24 hr 12.5 mg (1/2 x 25 mg) PO DAILY #30 tabs 06/07/24
Home Medication Changes
Lasix increased
Eliquis dose reduced according to renal function.
Metoprolol dose reduced.
Pending Results: No
--- NOTE | 2024-06-07 15:41 | PTCARENOTE ---
Patient discharged to home. All belonging sent home with patient. Patient verbalized understanding of discharge teaching. Escorted to main lobby in a wheelchair. present to drive him home
--- NOTE | 2024-06-08 09:58 | W.HF.CON ---
Heart Failure
- LV Function
Left ventricular function study result: LV Ejection fraction </= 35% (ECHO 05/23/24)
Ejection Fraction Percentage: 30
- ARNI
Patient already on ARNI: No
Heart Failure ARNI Contraindication: Acute Renal Failure
- ACEI/ARB
Patient already on ACEI/ARB: No
Heart Failure ACEI/ARB Contraindication: Acute Renal Failure
- Beta Chicho
Patient already on Evidence Based Beta Chicho: Yes
- Mineralocorticord Receptor Antagonist
Patient already on MRA: No
Heart Failure MRA Contraindication: Acute Renal Insufficiency
- SGLT-2 Inhibitor
Patient already on SGLT-2 Inhibitor: No
Heart Failure SGLT-2 Inhibitor Contraindication: Patient Refusal
- Afib Anticoagulation
Patient already on Anticoagulation for Afib: Yes
- NYHA CHF Classification
NYHA CHF Classification Level: Class III - Symptoms w/ min exertion, interferes w/ nml daily activity
- ACC/AHA Stage
ACC/AHA Stage: Stage C: Symptomatic Heart Failure
== END 2024-06-07 16:00 | disposition home health service (06) | DRG 286 ==
LOC: IVU 11:28
PROVIDERS: Internal Medicine; Internal Medicine Cardiovascular Disease; Registered Nurse; ADMITTING PHYSICIAN Internal Medicine; ATTENDING PHYSICIAN Internal Medicine; CONSULT PHYSICIAN Internal Medicine; CONSULT PHYSICIAN Internal Medicine Cardiovascular Disease; EMERGENCY PHYSICIAN Emergency Medicine; FAMILY PHYSICIAN Internal Medicine
PROC: B2141ZZ Fluoroscopy of Right Heart using Low Osmolar Contrast (ICD-10-PCS; 2024-05-31)
PROC: B2111ZZ Fluoroscopy of Multiple Coronary Arteries using Low Osmolar Contrast (ICD-10-PCS; 2024-05-31)
PROC: 4A023N6 Measurement of Cardiac Sampling and Pressure, Right Heart, Percutaneous Approach (ICD-10-PCS; 2024-05-31)
PROC: 4B02XTZ Measurement of Cardiac Defibrillator, External Approach (ICD-10-PCS; 2024-06-06)
DX: I13.0 Hypertensive heart and chronic kidney disease with heart failure and stage 1 through stage 4 chronic kidney disease, or unspecified chronic kidney disease (principal); I50.23 Acute on chronic systolic (congestive) heart failure; J96.01 Acute respiratory failure with hypoxia; I48.21 Permanent atrial fibrillation; N17.9 Acute kidney failure, unspecified; I25.10 Atherosclerotic heart disease of native coronary artery without angina pectoris; Z87.891 Personal history of nicotine dependence; C61 Malignant neoplasm of prostate; I25.5 Ischemic cardiomyopathy; I5A Non-ischemic myocardial injury (non-traumatic); Z11.52 Encounter for screening for COVID-19
CPT/HCPCS: 71046; 71250; 80048; 80053; 82248; 82570; 82607; 82746; 83615; 83735; 83880; 84156; 84300; 84443; 84484; 85025; 87811; 93005; 93451; 94762; 97116; 97162; 97166; 97530; 97535; 99285; C1894; J2260

== ENCOUNTER → 2024-07-07 10:02 | Outpatient (REF) | payer OTHER, SELFPAY ==
--- NOTE | 2024-07-07 11:20 | CARDSERVLU ---
Echocardiogram with Lumason completed after protocol screening completed. Allergies verified.
Patent IV site: __left AC___
IV site flushed with 0.9% NaCl pre and post administration.
Diluted bolus method utilized to enhance visualization of ventricular lewis.
Total volume given: _3.0___ mL
Patient tolerated all procedures well without complications.
--- NOTE | 2024-07-07 11:26 | CARDSERVLU ---
Echocardiogram with Lumason completed after protocol screening completed. Allergies verified.
Patent IV site: _left AC____
IV site flushed with 0.9% NaCl pre and post administration.
Diluted bolus method utilized to enhance visualization of ventricular lewis.
Total volume given: _4.0___ mL
Patient tolerated all procedures well without complications.
#22 jania placed Left AC. Lumason given. INT d/c'd. pressure held. No bleeding noted.
== END ==
LOC: RCS 10:02
PROVIDERS: ATTENDING PHYSICIAN Internal Medicine Cardiovascular Disease; FAMILY PHYSICIAN Internal Medicine
DX: I25.5 Ischemic cardiomyopathy (principal)
CPT/HCPCS: 93308; 93321; 93325; Q9950

== ENCOUNTER → 2024-09-02 15:06 | Outpatient (REF) | payer OTHER, SELFPAY | LOC: RAD 15:06 | PROVIDERS: ATTENDING PHYSICIAN Internal Medicine | DX: I25.5 Ischemic cardiomyopathy (principal); I48.20 Chronic atrial fibrillation, unspecified; Z95.810 Presence of automatic (implantable) cardiac defibrillator; R25.1 Tremor, unspecified; L60.8 Other nail disorders | CPT/HCPCS: 71046 ==

== ENCOUNTER → 2024-12-21 09:06 | Outpatient (REF) | payer OTHER, SELFPAY | LOC: HWRCS 09:06 | PROVIDERS: ATTENDING PHYSICIAN Internal Medicine Cardiovascular Disease; FAMILY PHYSICIAN Internal Medicine | DX: I25.5 Ischemic cardiomyopathy (principal) | CPT/HCPCS: 93306 ==

== ENCOUNTER → 2025-06-21 11:14 | Outpatient (REF) | payer OTHER, SELFPAY | LOC: HWRCS 11:14 | PROVIDERS: ATTENDING PHYSICIAN Internal Medicine Cardiovascular Disease; FAMILY PHYSICIAN Internal Medicine | DX: I10 Essential (primary) hypertension (principal); I25.5 Ischemic cardiomyopathy; I48.0 Paroxysmal atrial fibrillation | CPT/HCPCS: 93306 ==